=== PATIENT | male | born 1955 | race Two or more races ===

== ENCOUNTER 2019-01-04 13:24 | Inpatient (IN) | payer MEDICAID, OTHER ==
[~2019-01-04] VITALS: Ht 175.3 cm; Wt 68.1 kg
[~2019-01-04 13:24] MED LIST: SUCCINYLCHOLINE 20 MG/ML, 10ML ONE
[2019-01-04 14:33] LABS: MEAN CORPUSCULAR HGB CONC 32.6 g/dL (33.2-36.2); MEAN CORPUSCULAR VOLUME 88.9 fL (81-97); PLATELET COUNT 426 x10^3/uL (130-400); RED CELL DISTRIBUTION WIDTH 12.7 % (9.4-14.8)
--- NOTE | 2019-01-04 14:41 | NUR ---
PT TO ROOM FROM LOBBY VIA W/C
[2019-01-04 14:45] LABS: ALBUMIN 2.4 g/dL (3.4-5.0); ANION GAP 20 mmol/L (5-15); CALCIUM 9.7 mg/dL (8.5-10.1); CHLORIDE 91 mmol/L (98-107); CREATININE 1.17 mg/dL (0.7-1.3)
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
[2019-01-04] MEDS ORDERED: INSULIN (14:53)
[2019-01-04] MEDS ORDERED: ANTIBIOTIC (14:53)
[2019-01-04] MEDS ORDERED: LISI-167 PO (15:02)
[2019-01-04] MEDS ORDERED: METF500T17 PO (15:02)
[2019-01-04] MEDS ORDERED: TRAM50TA2 PO (15:02)
[2019-01-04] MEDS ORDERED: CEPH-368 PO (15:02)
[2019-01-04 15:06] LABS: <RBC MORPHOLOGY> NORMAL; BASOPHILS # (AUTO) 0.02 x10^3/uL (0-0.1); BASOPHILS % (AUTO) 0 % (0-1); EOSINOPHILS % (AUTO) 0 % (1-7); LYMPHOCYTES # (AUTO) 0.81 x10^3/uL (1-3.4); LYMPHOCYTES % (AUTO) 4 % (22-44); MD MORPH REVIEW ONLY; MONOCYTES # (AUTO) 0.63 x10^3/uL (0.2-0.8); MONOCYTES % (AUTO) 3 % (2-9); NEUTROPHILS # (AUTO) 18.47 x10^3/uL (1.8-6.8); NEUTROPHILS % (AUTO) 93 % (42-75)
[2019-01-04 15:07] LABS: <PLATELET ESTIMATE> INCREASED; LARGE PLATELETS 1+; PMNS WITH VACUOLES 1+; TOXIC GRAN 1+
[2019-01-04] MEDS ORDERED: PIPERACILLIN/TAZO/PMX 3.375GM 50 ML ONE (15:24)
[2019-01-04] MEDS ORDERED: PIPERACILLIN/TAZO/PMX 3.375GM 50 ML IVPB ONE (15:30)
[2019-01-04] MEDS ORDERED: VANCOMYCIN 1,300 MG in SODIUM CHLORIDE 0.9% 250 ML IV ONE (15:30)
[2019-01-04] MEDS ORDERED: VANCOMYCIN PER PHARMACY MC ONE (15:30)
[2019-01-04] MEDS ORDERED: SODIUM CHLORIDE 0.9% 1,000ML IVBOLUS ONE (15:30)
[2019-01-04] MEDS ORDERED: INSULIN REGULAR 100 UNITS/ML, 3ML VIAL SQ-INSULIN ONE (15:30)
[2019-01-04 15:35] LABS: PH, VENOUS 7.361 pH (7.320-7.420)
[2019-01-04] MEDS ORDERED: INSULIN SINGLE DOSE, ER SQ-INSULIN ONE ×2 (15:46→23:22)
--- NOTE | 2019-01-04 15:51 | NUR ---
Pt reclined in bed talking with family, who is at the bedside. Zosyn abx infusing at this time, which will be followed by another abx. Respirations even and unlabored at this time, saturating well on RA. Side rails up, call light in reach.
[2019-01-04 15:57] LABS: ACETONE, SERUM Large (80mg/dL) mg/dL (Negative)
--- NOTE | 2019-01-04 16:43 | NUR ---
VANCOMYCIN INFUSION STARTED, INFUSING AT 166.7ML/HR VIA PUMP PER PHARMACY LABEL. IV SITE PATENT. U/S STILL AT BS.
--- NOTE | 2019-01-04 17:15 | NUR ---
PT REPORT TO WALLY JAMES RN. CARE TRANSFERRRED.
--- NOTE | 2019-01-04 18:01 | NUR ---
U/S BS. FAMILY IN ROOM.
--- NOTE | 2019-01-04 19:06 | NUR ---
PT REPORT TO ADRIA WOOD FOR ROOM 464. PER NINA, ROOM ISN'T CLEAN, YET.
[2019-01-04 20:05] VITALS: BP 117/56
[2019-01-04] MEDS ORDERED: ONDANSETRON 2MG/ML, 2ML IVPush PRN (21:00)
[2019-01-04] MEDS ORDERED: SODIUM CHLORIDE 0.9% 1,000 ML IV SCH (21:00)
[2019-01-04] MEDS ORDERED: LIDODERM 5% PATCH TD PRN (21:00)
[2019-01-04] MEDS ORDERED: VANCOMYCIN PER PHARMACY MC PRN (21:00)
[2019-01-04] MEDS ORDERED: ACETAMINOPHEN 325 MG TABLET PO PRN ×2 (21:00→23:00)
[2019-01-04] MEDS ORDERED: FENTANYL PF 250 MCG/5ML ONE (21:26)
[2019-01-04] MEDS ORDERED: MIDAZOLAM 1 MG/ML, 2ML ONE (21:26)
[2019-01-04] MEDS ORDERED: PROPOFOL 10 MG/ML, 20ML ONE (21:28)
[2019-01-04] MEDS ORDERED: ROCURONIUM 10MG/ML,5ML ONE (21:29)
[2019-01-04] MEDS: INSULIN LISPRO 100 UNITS/ML, PEN SQ-INSULIN SCH (21:30)
[2019-01-04] MEDS ORDERED: DEXAMETHASONE 4 MG/ML, 1ML ONE (21:30)
[2019-01-04] MEDS ORDERED: ONDANSETRON 2MG/ML, 2ML ONE (21:30)
[2019-01-04] MEDS ORDERED: PHARMACOKINETIC MONITORING MC PRN ×2 (21:30)
[2019-01-04] MEDS ORDERED: LABETALOL 5MG/ML, 20ML IV PRN (23:00)
[2019-01-04] MEDS ORDERED: HALOPERIDOL 5 MG/ML IV PRN (23:00)
[2019-01-04] MEDS ORDERED: MIDAZOLAM 1 MG/ML, 2ML IV PRN (23:00)
[2019-01-04] MEDS ORDERED: MEPERIDINE/PF 25MG/0.5ML IVPush PRN (23:00)
[2019-01-04] MEDS ORDERED: EPHEDRINE 50 MG/ML, 1ML IVPush PRN (23:00)
[2019-01-04] MEDS ORDERED: hydrALAzine 20 MG/ML, 1ML IV PRN (23:00)
[2019-01-04] MEDS ORDERED: ONDANSETRON ODT 8 MG PO PRN (23:00)
[2019-01-04] MEDS ORDERED: OXYcodone 5 MG/5 ML ORAL.SOL UDC PO PRN (23:00)
[2019-01-04] MEDS ORDERED: ALBUTEROL SULFATE 2.5 MG/3 ML NPPB PRN (23:00)
[2019-01-04] MEDS ORDERED: MORPHINE SULFATE 4 MG/ML, 1ML IVPush PRN (23:00)
[2019-01-04] MEDS ORDERED: DIAZEPAM 5 MG/ML, 2ML IVPush PRN (23:00)
[2019-01-04] MEDS ORDERED: PROMETHAZINE 12.5 MG SUPP PR PRN (23:00)
[2019-01-04] MEDS ORDERED: ONDANSETRON 2MG/ML, 2ML IV PRN (23:00)
[2019-01-04] MEDS ORDERED: HYDROmorphone 2 MG/ML, 1ML IVPush PRN (23:00)
[2019-01-04] MEDS ORDERED: PROMETHAZINE 25 MG/ML, 1ML IV PRN (23:00)
[2019-01-04] MEDS ORDERED: FENTANYL PF 100 MCG/2ML ONE (23:22)
[2019-01-04] MEDS: FENTANYL PF 100 MCG/2ML IV PRN ×2 (23:26→23:32)
[2019-01-04] MEDS ORDERED: INSULIN REGULAR 100 UNITS/ML, 3ML VIAL IVPush ONE (23:30)
[2019-01-04] MEDS ORDERED: OXYcodone 5 MG/5 ML ORAL.SOL UDC ONE (23:42)
[2019-01-04 23:53] VITALS: BP 140/82
[2019-01-05 00:23] VITALS: BP 131/61
[2019-01-05] MEDS: PIPERACILLIN/TAZO/PMX 3.375GM 50 ML IV SCH ×4 (01:56→20:20)
[2019-01-05] MEDS: HYDROcodone/APAP 5/325 TABLET PO PRN ×4 (02:10→20:41)
[2019-01-05 04:08] VITALS: BP 143/68
[2019-01-05 05:15] LABS: CHLORIDE 98 mmol/L (98-107)
[2019-01-05 05:21] LABS: ANION GAP 12 mmol/L (5-15); CALCIUM 8.4 mg/dL (8.5-10.1); CREATININE 1.31 mg/dL (0.7-1.3)
[2019-01-05 05:37] LABS: MEAN CORPUSCULAR HEMOGLOBIN 28.7 pg (27.5-34.5); MEAN CORPUSCULAR HGB CONC 32.2 g/dL (33.2-36.2); MEAN CORPUSCULAR VOLUME 89.1 fL (81-97); MEAN PLATELET VOLUME 8.2 fL (7.4-10.4); PLATELET COUNT 327 x10^3/uL (130-400); RED BLOOD COUNT 3.28 x10^6/uL (4.38-5.82); RED CELL DISTRIBUTION WIDTH 12.5 % (9.4-14.8)
[2019-01-05 06:15] LABS: MD YES
[2019-01-05 06:17] LABS: BAND#(MANUAL) 1.33 x10^3/uL; BANDS%(MANUAL) 7 % (0-7); LYMPH#(MANUAL) 0.57 x10^3/uL (1-3.4); LYMPHS% (MANUAL) 3 % (22-44)
[2019-01-05 06:18] LABS: MONOS#(MANUAL) 0.38 x10^3/uL (0.3-2.7); MONOS% (MANUAL) 2 % (2-9); SEGS% (MANUAL) 88 % (42-75)
[2019-01-05 06:19] LABS: <PLATELET ESTIMATE> ADEQUATE; <PLT MORPHOLOGY> NORMAL PLT MORPH; <RBC MORPHOLOGY> NORMAL
[2019-01-05 06:20] VITALS: BP 125/62
[2019-01-05] MEDS: INSULIN LISPRO 100 UNITS/ML, PEN SQ-INSULIN SCH ×4 (07:00→23:00)
[2019-01-05] MEDS ORDERED: INSULIN LISPRO 100 UNITS/ML, PEN SQ-INSULIN ONE ×3 (07:30→23:00)
[2019-01-05] MEDS: LISINOPRIL 10 MG TABLET PO SCH (08:37)
[2019-01-05 08:52] LABS: HEMOGLOBIN A1C 12.3 % (4.2-6.3)
[2019-01-05 08:54] LABS: ACETONE, SERUM Large (80mg/dL) mg/dL (Negative)
[2019-01-05] MEDS ORDERED: OMNIPAQUE 350 MG/ML, 150 ML BOTTLE ONE (09:54)
[2019-01-05] MEDS ORDERED: INSULIN GLARGINE 100 UNITS/ML, PEN SQ-INSULIN ONE (12:00)
[2019-01-05 12:03] LABS: ANION GAP 12 mmol/L (5-15); CALCIUM 8.6 mg/dL (8.5-10.1); CHLORIDE 99 mmol/L (98-107); CREATININE 1.37 mg/dL (0.7-1.3)
[2019-01-05] MEDS: SODIUM CHLORIDE 0.9% 1,000 ML IV SCH ×2 (13:02→22:49)
[2019-01-05 13:14] VITALS: BP 121/66
[2019-01-05 16:37] LABS: ANION GAP 11 mmol/L (5-15); CALCIUM 8.5 mg/dL (8.5-10.1); CHLORIDE 98 mmol/L (98-107); CREATININE 1.39 mg/dL (0.7-1.3)
[2019-01-05] MEDS: VANCOMYCIN 1,300 MG in SODIUM CHLORIDE 0.9% 250 ML IV SCH (16:53)
[2019-01-05 19:38] VITALS: BP 114/64
[2019-01-06] MEDS: PIPERACILLIN/TAZO/PMX 3.375GM 50 ML IV SCH ×4 (01:11→20:08)
[2019-01-06 01:40] VITALS: BP 137/76
[2019-01-06 05:55] LABS: MEAN CORPUSCULAR HEMOGLOBIN 29.3 pg (27.5-34.5); MEAN CORPUSCULAR HGB CONC 32.8 g/dL (33.2-36.2); MEAN CORPUSCULAR VOLUME 89.4 fL (81-97); MEAN PLATELET VOLUME 8.4 fL (7.4-10.4); PLATELET COUNT 371 x10^3/uL (130-400); RED BLOOD COUNT 3.49 x10^6/uL (4.38-5.82); RED CELL DISTRIBUTION WIDTH 12.9 % (9.4-14.8)
[2019-01-06 06:05] LABS: CHLORIDE 102 mmol/L (98-107)
[2019-01-06 06:15] LABS: ANION GAP 10 mmol/L (5-15); CALCIUM 8.1 mg/dL (8.5-10.1); CREATININE 1.17 mg/dL (0.7-1.3)
[2019-01-06 06:35] LABS: MD YES
[2019-01-06 06:37] LABS: BANDS%(MANUAL) 1 % (0-7); LYMPH#(MANUAL) 1.37 x10^3/uL (1-3.4); LYMPHS% (MANUAL) 7 % (22-44); METAMYELOCYTES% (MANUAL) 1 % (0-1); MONOS#(MANUAL) 0.98 x10^3/uL (0.3-2.7); MONOS% (MANUAL) 5 % (2-9); SEG#(MANUAL) 16.77 x10^3/uL (1.8-6.8); SEGS% (MANUAL) 86 % (42-75)
[2019-01-06 06:38] LABS: <PLATELET ESTIMATE> ADEQUATE; <PLT MORPHOLOGY> NORMAL PLT MORPH; <RBC MORPHOLOGY> NORMAL
[2019-01-06 06:39] LABS: TOXIC GRAN 1+
[2019-01-06 06:42] VITALS: BP 168/96
[2019-01-06] MEDS: INSULIN LISPRO 100 UNITS/ML, PEN SQ-INSULIN SCH ×4 (08:07→21:28)
[2019-01-06] MEDS: LISINOPRIL 10 MG TABLET PO SCH (08:08)
[2019-01-06] MEDS: SODIUM CHLORIDE 0.9% 1,000 ML IV SCH ×2 (08:08→15:54)
[2019-01-06] MEDS ORDERED: INSULIN GLARGINE 100 UNITS/ML, PEN SQ-INSULIN SCH ×2 (09:00)
[2019-01-06 12:35] VITALS: BP 158/71
[2019-01-06] MEDS: HYDROcodone/APAP 5/325 TABLET PO PRN (13:39)
[2019-01-06] MEDS ORDERED: CALCIUM CARBONATE 500 MG TAB.CHEW PO PRN (17:30)
[2019-01-06] MEDS: VANCOMYCIN 1,300 MG in SODIUM CHLORIDE 0.9% 250 ML IV SCH (18:11)
[2019-01-06] MEDS ORDERED: ENOXAPARIN 40 MG/0.4 ML SQ SCH (18:30)
[2019-01-06 19:08] VITALS: BP 153/82
[2019-01-07] MEDS: PIPERACILLIN/TAZO/PMX 3.375GM 50 ML IV SCH ×4 (01:50→20:26)
[2019-01-07 02:56] VITALS: BP 142/82
[2019-01-07 05:11] LABS: BASOPHILS # (AUTO) 0.03 x10^3/uL (0-0.1); BASOPHILS % (AUTO) 0 % (0-1); EOSINOPHILS # (AUTO) 0.06 x10^3/uL (0-0.4); EOSINOPHILS % (AUTO) 1 % (1-7); LYMPHOCYTES % (AUTO) 16 % (22-44); MD NO; MEAN CORPUSCULAR HEMOGLOBIN 28.6 pg (27.5-34.5); MEAN CORPUSCULAR HGB CONC 32.6 g/dL (33.2-36.2); MEAN CORPUSCULAR VOLUME 87.7 fL (81-97); MEAN PLATELET VOLUME 7.8 fL (7.4-10.4); MONOCYTES # (AUTO) 0.89 x10^3/uL (0.2-0.8); MONOCYTES % (AUTO) 8 % (2-9); NEUTROPHILS # (AUTO) 8.28 x10^3/uL (1.8-6.8); NEUTROPHILS % (AUTO) 76 % (42-75); PLATELET COUNT 319 x10^3/uL (130-400); RED BLOOD COUNT 3.28 x10^6/uL (4.38-5.82); RED CELL DISTRIBUTION WIDTH 12.3 % (9.4-14.8)
[2019-01-07 05:16] LABS: ANION GAP 10 mmol/L (5-15); CALCIUM 7.8 mg/dL (8.5-10.1); CHLORIDE 106 mmol/L (98-107)
[2019-01-07 05:18] LABS: CREATININE 1.07 mg/dL (0.7-1.3)
[2019-01-07] MEDS: HYDROcodone/APAP 5/325 TABLET PO PRN ×2 (05:22→14:31)
[2019-01-07] MEDS: PANTOPROZOLE 40MG TABLET PO SCH (05:22)
[2019-01-07 07:24] VITALS: BP 175/80
[2019-01-07] MEDS: LISINOPRIL 10 MG TABLET PO SCH (07:56)
[2019-01-07] MEDS: INSULIN LISPRO 100 UNITS/ML, PEN SQ-INSULIN SCH ×4 (08:52→20:27)
[2019-01-07] MEDS: INSULIN GLARGINE 100 UNITS/ML, PEN SQ-INSULIN SCH ×2 (08:53→20:27)
[2019-01-07] MEDS ORDERED: INSULIN GLARGINE 100 UNITS/ML, PEN SQ-INSULIN SCH (09:00)
[2019-01-07] MEDS ORDERED: LISINOPRIL 10 MG TABLET PO ONE (09:00)
[2019-01-07 11:21] VITALS: BP 158/89
[2019-01-07 13:34] VITALS: BP 193/85
[2019-01-07] MEDS: hydrALAzine 20 MG/ML, 1ML IVPush PRN (13:41)
[2019-01-07] MEDS: ENOXAPARIN 40 MG/0.4 ML SQ SCH (14:31)
[2019-01-07 14:32] VITALS: BP 155/74
[2019-01-07] MEDS: VANCOMYCIN 1,300 MG in SODIUM CHLORIDE 0.9% 250 ML IV SCH (17:26)
[2019-01-07 19:34] VITALS: BP 151/68
[2019-01-07] MEDS: LISINOPRIL 20 MG TABLET PO SCH (20:27)
[2019-01-08] VITALS (7 sets, daily range): BP systolic 127–188; BP diastolic 67–84
[2019-01-08] MEDS: PIPERACILLIN/TAZO/PMX 3.375GM 50 ML IV SCH ×4 (02:15→21:17)
[2019-01-08] MEDS: HYDROcodone/APAP 5/325 TABLET PO PRN (02:16)
[2019-01-08 05:42] LABS: BASOPHILS # (AUTO) 0.01 x10^3/uL (0-0.1); BASOPHILS % (AUTO) 0 % (0-1); EOSINOPHILS # (AUTO) 0.07 x10^3/uL (0-0.4); EOSINOPHILS % (AUTO) 1 % (1-7); LYMPHOCYTES # (AUTO) 1.45 x10^3/uL (1-3.4); LYMPHOCYTES % (AUTO) 15 % (22-44); MD NO; MEAN CORPUSCULAR HEMOGLOBIN 28.5 pg (27.5-34.5); MEAN CORPUSCULAR HGB CONC 32.3 g/dL (33.2-36.2); MEAN CORPUSCULAR VOLUME 88.2 fL (81-97); MEAN PLATELET VOLUME 7.7 fL (7.4-10.4); MONOCYTES # (AUTO) 0.76 x10^3/uL (0.2-0.8); MONOCYTES % (AUTO) 8 % (2-9); NEUTROPHILS # (AUTO) 7.75 x10^3/uL (1.8-6.8); NEUTROPHILS % (AUTO) 77 % (42-75); PLATELET COUNT 321 x10^3/uL (130-400); RED BLOOD COUNT 3.19 x10^6/uL (4.38-5.82); RED CELL DISTRIBUTION WIDTH 12.6 % (9.4-14.8)
[2019-01-08 05:52] LABS: ANION GAP 6 mmol/L (5-15); CALCIUM 8.1 mg/dL (8.5-10.1); CHLORIDE 110 mmol/L (98-107); CREATININE 0.97 mg/dL (0.7-1.3)
[2019-01-08] MEDS: PANTOPROZOLE 40MG TABLET PO SCH (06:11)
[2019-01-08] MEDS: INSULIN LISPRO 100 UNITS/ML, PEN SQ-INSULIN SCH ×4 (07:41→21:18)
[2019-01-08] MEDS: INSULIN GLARGINE 100 UNITS/ML, PEN SQ-INSULIN SCH ×2 (07:42→21:18)
[2019-01-08] MEDS: hydrALAzine 20 MG/ML, 1ML IVPush PRN ×2 (07:55→21:16)
[2019-01-08] MEDS: LISINOPRIL 20 MG TABLET PO SCH ×2 (07:55→19:34)
[2019-01-08] MEDS ORDERED: LISINOPRIL 20 MG TABLET PO SCH (09:00)
[2019-01-08] MEDS: LACTATED RINGERS 1,000 ML IV SCH (11:16)
[2019-01-08] MEDS: ENOXAPARIN 40 MG/0.4 ML SQ SCH (14:28)
[2019-01-08] MEDS ORDERED: FENTANYL PF 250 MCG/5ML ONE (15:46)
[2019-01-08] MEDS ORDERED: LIDOCAINE 2%, 6 ML JEL.PF.APP MM ONE (15:47)
[2019-01-08] MEDS ORDERED: ONDANSETRON 2MG/ML, 2ML ONE (15:48)
[2019-01-08] MEDS ORDERED: SUCCINYLCHOLINE 20 MG/ML, 10ML ONE (15:48)
[2019-01-08] MEDS ORDERED: ROCURONIUM 10MG/ML,5ML ONE (15:48)
[2019-01-08] MEDS ORDERED: DEXAMETHASONE 4 MG/ML, 1ML ONE (15:48)
[2019-01-08] MEDS ORDERED: MIDAZOLAM 1 MG/ML, 2ML ONE (15:48)
[2019-01-08] MEDS ORDERED: PROPOFOL 10 MG/ML, 20ML ONE (15:48)
[2019-01-08] MEDS ORDERED: EPHEDRINE 50 MG/ML, 1ML ONE (17:37)
[2019-01-08] MEDS ORDERED: FENTANYL PF 100 MCG/2ML ONE ×2 (18:14→21:10)
[2019-01-08] MEDS ORDERED: OXYcodone 5 MG/5 ML ORAL.SOL UDC ONE (18:14)
[2019-01-08] MEDS: FENTANYL PF 100 MCG/2ML IV PRN ×2 (18:21→18:29)
[2019-01-08] MEDS ORDERED: hydrALAzine 20 MG/ML, 1ML IV PRN (18:30)
[2019-01-08] MEDS ORDERED: OXYcodone 5 MG/5 ML ORAL.SOL UDC PO PRN (18:30)
[2019-01-08] MEDS ORDERED: OXYcodone/APAP 5/325MG TABLET PO PRN ×2 (18:30→21:30)
[2019-01-08] MEDS ORDERED: PROMETHAZINE 25 MG SUPP PR PRN (18:30)
[2019-01-08] MEDS ORDERED: MEPERIDINE/PF 25MG/0.5ML IVPush PRN (18:30)
[2019-01-08] MEDS ORDERED: LABETALOL 5MG/ML, 20ML IV PRN (18:30)
[2019-01-08] MEDS ORDERED: HYDROmorphone 2 MG/ML, 1ML ONE (18:46)
[2019-01-08] MEDS: HYDROmorphone 2 MG/ML, 1ML IVPush PRN ×2 (18:54→19:03)
[2019-01-08] MEDS: VANCOMYCIN 1,300 MG in SODIUM CHLORIDE 0.9% 250 ML IV SCH (19:32)
[2019-01-08] MEDS ORDERED: FENTANYL PF 100 MCG/2ML IV ONE (21:30)
[2019-01-08] MEDS ORDERED: OXYcodone IR 5MG TABLET ONE (23:53)
[2019-01-09] MEDS ORDERED: OXYcodone IR 5MG TABLET PO ONE
[2019-01-09] MEDS: PIPERACILLIN/TAZO/PMX 3.375GM 50 ML IV SCH ×4 (02:07→22:44)
[2019-01-09] MEDS: OXYcodone/APAP 10/325MG TABLET PO PRN ×5 (02:07→18:41)
[2019-01-09 02:39] VITALS: BP 128/72
[2019-01-09 05:43] LABS: MEAN CORPUSCULAR HEMOGLOBIN 29.7 pg (27.5-34.5); MEAN CORPUSCULAR HGB CONC 33.2 g/dL (33.2-36.2); MEAN CORPUSCULAR VOLUME 89.5 fL (81-97); MEAN PLATELET VOLUME 8.2 fL (7.4-10.4); PLATELET COUNT 305 x10^3/uL (130-400); RED BLOOD COUNT 3.04 x10^6/uL (4.38-5.82); RED CELL DISTRIBUTION WIDTH 12.6 % (9.4-14.8)
[2019-01-09] MEDS: PANTOPROZOLE 40MG TABLET PO SCH (05:45)
[2019-01-09] MEDS: LACTATED RINGERS 1,000 ML IV SCH ×2 (05:46→20:53)
[2019-01-09 06:39] LABS: BASOPHILS # (AUTO) 0.03 x10^3/uL (0-0.1); BASOPHILS % (AUTO) 0 % (0-1); EOSINOPHILS # (AUTO) 0.01 x10^3/uL (0-0.4); EOSINOPHILS % (AUTO) 0 % (1-7); LYMPHOCYTES # (AUTO) 1.14 x10^3/uL (1-3.4); LYMPHOCYTES % (AUTO) 8 % (22-44); MD NO; MONOCYTES # (AUTO) 0.86 x10^3/uL (0.2-0.8); MONOCYTES % (AUTO) 6 % (2-9); NEUTROPHILS # (AUTO) 12.36 x10^3/uL (1.8-6.8); NEUTROPHILS % (AUTO) 86 % (42-75)
[2019-01-09] MEDS: INSULIN GLARGINE 100 UNITS/ML, PEN SQ-INSULIN SCH ×2 (09:05→21:22)
[2019-01-09] MEDS: INSULIN LISPRO 100 UNITS/ML, PEN SQ-INSULIN SCH ×4 (09:05→21:00)
[2019-01-09] MEDS: GABAPENTIN 100 MG CAPSULE PO SCH ×3 (09:06→20:54)
[2019-01-09] MEDS: DOCUSATE 100 MG CAPSULE PO PRN (09:06)
[2019-01-09] MEDS: LISINOPRIL 20 MG TABLET PO SCH ×2 (09:15→21:22)
[2019-01-09 09:18] VITALS: BP 153/79
[2019-01-09] MEDS ORDERED: MAGNESIUM CITRATE 300ML ORAL SOL PO ONE (09:30)
[2019-01-09 14:22] VITALS: BP 100/57
[2019-01-09] MEDS: ENOXAPARIN 40 MG/0.4 ML SQ SCH (14:38)
[2019-01-09] MEDS ORDERED: HYDROcodone/APAP 5/325 TABLET PO PRN (20:00)
[2019-01-09 20:16] VITALS: BP 115/65
[2019-01-09] MEDS: VANCOMYCIN 1,300 MG in SODIUM CHLORIDE 0.9% 250 ML IV SCH (20:53)
[2019-01-09] MEDS: OXYcodone/APAP 5/325MG TABLET PO PRN (22:43)
[2019-01-10 02:29] VITALS: BP 111/55
[2019-01-10] MEDS: OXYcodone/APAP 5/325MG TABLET PO PRN ×4 (02:37→19:41)
[2019-01-10] MEDS: PIPERACILLIN/TAZO/PMX 3.375GM 50 ML IV SCH ×3 (04:51→16:51)
[2019-01-10 04:59] LABS: MEAN CORPUSCULAR HEMOGLOBIN 29.4 pg (27.5-34.5); MEAN CORPUSCULAR HGB CONC 32.3 g/dL (33.2-36.2); MEAN CORPUSCULAR VOLUME 90.9 fL (81-97); MEAN PLATELET VOLUME 7.7 fL (7.4-10.4); PLATELET COUNT 310 x10^3/uL (130-400); RED BLOOD COUNT 2.81 x10^6/uL (4.38-5.82)
[2019-01-10 05:10] LABS: CALCIUM 8.1 mg/dL (8.5-10.1); CHLORIDE 111 mmol/L (98-107)
[2019-01-10 05:15] LABS: ALANINE AMINOTRANSFERASE 23 U/L (12-78); ALBUMIN 1.8 g/dL (3.4-5.0); ALKALINE PHOSPHATASE 94 U/L (45-117); ANION GAP 5 mmol/L (5-15); BILIRUBIN,TOTAL 0.3 mg/dL (0.2-1.0); CREATININE 1.84 mg/dL (0.7-1.3)
[2019-01-10 05:33] LABS: BASOPHILS # (AUTO) 0.05 x10^3/uL (0-0.1); BASOPHILS % (AUTO) 0 % (0-1); EOSINOPHILS # (AUTO) 0.27 x10^3/uL (0-0.4); EOSINOPHILS % (AUTO) 2 % (1-7); LYMPHOCYTES # (AUTO) 1.85 x10^3/uL (1-3.4); LYMPHOCYTES % (AUTO) 15 % (22-44); MD SCAN; MONOCYTES # (AUTO) 1.33 x10^3/uL (0.2-0.8); MONOCYTES % (AUTO) 11 % (2-9); NEUTROPHILS # (AUTO) 9.17 x10^3/uL (1.8-6.8); NEUTROPHILS % (AUTO) 72 % (42-75)
[2019-01-10] MEDS: PANTOPROZOLE 40MG TABLET PO SCH (06:28)
[2019-01-10 06:30] VITALS: BP 120/59
[2019-01-10] MEDS: INSULIN LISPRO 100 UNITS/ML, PEN SQ-INSULIN SCH ×4 (06:33→22:01)
[2019-01-10] MEDS: GABAPENTIN 100 MG CAPSULE PO SCH ×3 (07:53→21:57)
[2019-01-10] MEDS: INSULIN GLARGINE 100 UNITS/ML, PEN SQ-INSULIN SCH ×2 (07:55→22:02)
[2019-01-10] MEDS: LISINOPRIL 20 MG TABLET PO SCH ×2 (07:59→21:57)
[2019-01-10] MEDS ORDERED: ZOSYN PER PHARMACY MC PRN (08:00)
[2019-01-10] MEDS ORDERED: DEXTROSE 50%, 50ML SYRINGE IVPush PRN (08:00)
[2019-01-10] MEDS ORDERED: GLUCAGON 1 MG IM PRN (08:00)
[2019-01-10] MEDS ORDERED: DEXTROSE 4 GM TAB.CHEW PO PRN (08:00)
[2019-01-10] MEDS ORDERED: INSULIN GLARGINE 100 UNITS/ML, PEN SQ-INSULIN SCH (09:00)
[2019-01-10] MEDS: LINEZOLID PMX 600MG/300ML 300 ML IV SCH ×2 (09:13→21:58)
[2019-01-10] MEDS: TAMSULOSIN 0.4 MG CAP.ER.24H PO SCH (09:13)
[2019-01-10] MEDS: HEPARIN 5,000 UNITS/ML, 1ML SQ SCH ×2 (09:14→16:30)
[2019-01-10] MEDS: SODIUM CHLORIDE FLUSH 10ML SYR IVF SCH (09:15)
[2019-01-10] MEDS: DOCUSATE 100 MG CAPSULE PO PRN (09:21)
[2019-01-10] MEDS ORDERED: MAGNESIUM CITRATE 300ML ORAL SOL ONE (09:23)
[2019-01-10] MEDS ORDERED: MAGNESIUM CITRATE 300ML ORAL SOL PO ONE ×2 (09:30→15:00)
[2019-01-10] MEDS: LACTATED RINGERS 1,000 ML IV SCH ×2 (11:21→16:30)
[2019-01-10 14:31] VITALS: BP 118/69
[2019-01-10] MEDS ORDERED: BISACODYL 10 MG SUPP PR PRN (16:00)
[2019-01-10 20:31] VITALS: BP 137/66
[2019-01-11] MEDS: OXYcodone/APAP 5/325MG TABLET PO PRN ×3 (00:05→20:46)
[2019-01-11] MEDS: SODIUM CHLORIDE FLUSH 10ML SYR IVF SCH ×3 (00:05→21:44)
[2019-01-11] MEDS: PIPERACILLIN/TAZO/PMX 3.375GM 50 ML IV SCH ×4 (01:18→20:46)
[2019-01-11] MEDS: HEPARIN 5,000 UNITS/ML, 1ML SQ SCH ×3 (01:23→16:29)
[2019-01-11 02:35] VITALS: BP 143/77
[2019-01-11] MEDS: LACTATED RINGERS 1,000 ML IV SCH ×3 (03:00→19:00)
[2019-01-11 05:30] LABS: BASOPHILS # (AUTO) 0.03 x10^3/uL (0-0.1); BASOPHILS % (AUTO) 0 % (0-1); EOSINOPHILS # (AUTO) 0.19 x10^3/uL (0-0.4); EOSINOPHILS % (AUTO) 2 % (1-7); LYMPHOCYTES # (AUTO) 1.63 x10^3/uL (1-3.4); LYMPHOCYTES % (AUTO) 21 % (22-44); MD NO; MEAN CORPUSCULAR HEMOGLOBIN 28.6 pg (27.5-34.5); MEAN CORPUSCULAR HGB CONC 32.3 g/dL (33.2-36.2); MEAN CORPUSCULAR VOLUME 88.7 fL (81-97); MEAN PLATELET VOLUME 8.1 fL (7.4-10.4); MONOCYTES # (AUTO) 1.01 x10^3/uL (0.2-0.8); MONOCYTES % (AUTO) 13 % (2-9); NEUTROPHILS # (AUTO) 4.86 x10^3/uL (1.8-6.8); NEUTROPHILS % (AUTO) 63 % (42-75); PLATELET COUNT 306 x10^3/uL (130-400); RED BLOOD COUNT 2.65 x10^6/uL (4.38-5.82); RED CELL DISTRIBUTION WIDTH 12.9 % (9.4-14.8)
[2019-01-11 05:40] LABS: CHLORIDE 109 mmol/L (98-107)
[2019-01-11 05:45] LABS: ALANINE AMINOTRANSFERASE 23 U/L (12-78); ALBUMIN 1.7 g/dL (3.4-5.0); ALKALINE PHOSPHATASE 107 U/L (45-117); ANION GAP 6 mmol/L (5-15); BILIRUBIN,TOTAL 0.3 mg/dL (0.2-1.0); CREATININE 1.53 mg/dL (0.7-1.3); TOTAL PROTEIN 5.9 g/dL (6.4-8.2)
[2019-01-11 06:50] VITALS: BP 148/67
[2019-01-11] MEDS: INSULIN LISPRO 100 UNITS/ML, PEN SQ-INSULIN SCH ×4 (07:00→20:53)
[2019-01-11] MEDS: PANTOPROZOLE 40MG TABLET PO SCH (07:07)
[2019-01-11] MEDS: LISINOPRIL 20 MG TABLET PO SCH (08:28)
[2019-01-11] MEDS: GABAPENTIN 100 MG CAPSULE PO SCH ×3 (08:28→20:46)
[2019-01-11] MEDS: TAMSULOSIN 0.4 MG CAP.ER.24H PO SCH (08:29)
[2019-01-11] MEDS: INSULIN GLARGINE 100 UNITS/ML, PEN SQ-INSULIN SCH ×3 (08:29→20:54)
[2019-01-11] MEDS: LINEZOLID PMX 600MG/300ML 300 ML IV SCH ×2 (08:36→21:44)
[2019-01-11] MEDS: AMLODIPINE 5 MG TABLET PO SCH (09:28)
[2019-01-11 16:05] VITALS: BP 183/81
[2019-01-11] MEDS: hydrALAzine 20 MG/ML, 1ML IVPush PRN (16:28)
[2019-01-11 17:00] VITALS: BP 130/81
[2019-01-11] MEDS ORDERED: AMLODIPINE 5 MG TABLET PO ONE (17:30)
[2019-01-11 19:48] VITALS: BP 151/77
[2019-01-12] MEDS: PIPERACILLIN/TAZO/PMX 3.375GM 50 ML IV SCH ×4 (01:47→20:04)
[2019-01-12] MEDS: HEPARIN 5,000 UNITS/ML, 1ML SQ SCH ×3 (01:48→18:23)
[2019-01-12 02:21] VITALS: BP 145/73
[2019-01-12] MEDS: LACTATED RINGERS 1,000 ML IV SCH (03:00)
[2019-01-12] MEDS: OXYcodone/APAP 5/325MG TABLET PO PRN ×3 (03:58→15:52)
[2019-01-12 05:26] LABS: HCT (SEDRATE) 23.2 % (39.2-51.8)
[2019-01-12 05:29] LABS: ALBUMIN 1.7 g/dL (3.4-5.0); ANION GAP 5 mmol/L (5-15); CALCIUM 8.2 mg/dL (8.5-10.1); CHLORIDE 109 mmol/L (98-107)
[2019-01-12 05:31] LABS: BASOPHILS # (AUTO) 0.04 x10^3/uL (0-0.1); BASOPHILS % (AUTO) 1 % (0-1); EOSINOPHILS # (AUTO) 0.19 x10^3/uL (0-0.4); EOSINOPHILS % (AUTO) 3 % (1-7); LYMPHOCYTES # (AUTO) 1.72 x10^3/uL (1-3.4); LYMPHOCYTES % (AUTO) 27 % (22-44); MD NO; MEAN CORPUSCULAR HEMOGLOBIN 28.5 pg (27.5-34.5); MEAN CORPUSCULAR HGB CONC 32.3 g/dL (33.2-36.2); MEAN CORPUSCULAR VOLUME 88.2 fL (81-97); MEAN PLATELET VOLUME 7.8 fL (7.4-10.4); MONOCYTES # (AUTO) 0.75 x10^3/uL (0.2-0.8); MONOCYTES % (AUTO) 12 % (2-9); NEUTROPHILS # (AUTO) 3.81 x10^3/uL (1.8-6.8); NEUTROPHILS % (AUTO) 59 % (42-75); PLATELET COUNT 305 x10^3/uL (130-400); RED BLOOD COUNT 2.57 x10^6/uL (4.38-5.82)
[2019-01-12 05:39] LABS: ALANINE AMINOTRANSFERASE 22 U/L (12-78); ALKALINE PHOSPHATASE 102 U/L (45-117); BILIRUBIN,TOTAL 0.3 mg/dL (0.2-1.0); CREATININE 1.41 mg/dL (0.7-1.3); TOTAL PROTEIN 5.9 g/dL (6.4-8.2)
[2019-01-12 06:19] LABS: SEDIMENTATION RATE > 120 mm/hr (0-10)
[2019-01-12] MEDS: PANTOPROZOLE 40MG TABLET PO SCH (06:19)
[2019-01-12 06:47] VITALS: BP 177/86
[2019-01-12] MEDS: INSULIN LISPRO 100 UNITS/ML, PEN SQ-INSULIN SCH ×4 (07:00→21:00)
[2019-01-12] MEDS: AMLODIPINE 5 MG TABLET PO SCH (08:49)
[2019-01-12] MEDS: DOCUSATE 100 MG CAPSULE PO PRN (08:49)
[2019-01-12] MEDS: TAMSULOSIN 0.4 MG CAP.ER.24H PO SCH (08:49)
[2019-01-12] MEDS: GABAPENTIN 100 MG CAPSULE PO SCH ×3 (08:50→21:20)
[2019-01-12] MEDS: LINEZOLID PMX 600MG/300ML 300 ML IV SCH ×2 (09:40→21:20)
[2019-01-12] MEDS: INSULIN GLARGINE 100 UNITS/ML, PEN SQ-INSULIN SCH ×2 (10:06→21:23)
[2019-01-12] MEDS: SODIUM CHLORIDE FLUSH 10ML SYR IVF SCH ×2 (10:07→21:20)
[2019-01-12 14:07] VITALS: BP 173/77
[2019-01-12 19:47] VITALS: BP 110/60
[2019-01-13 01:53] VITALS: BP 126/61
[2019-01-13] MEDS: PIPERACILLIN/TAZO/PMX 3.375GM 50 ML IV SCH ×2 (02:07→08:55)
[2019-01-13] MEDS: HEPARIN 5,000 UNITS/ML, 1ML SQ SCH ×3 (02:07→18:12)
[2019-01-13] MEDS: OXYcodone/APAP 5/325MG TABLET PO PRN ×4 (02:12→22:27)
[2019-01-13 06:11] LABS: BASOPHILS # (AUTO) 0.04 x10^3/uL (0-0.1); BASOPHILS % (AUTO) 1 % (0-1); EOSINOPHILS # (AUTO) 0.16 x10^3/uL (0-0.4); EOSINOPHILS % (AUTO) 3 % (1-7); LYMPHOCYTES # (AUTO) 1.55 x10^3/uL (1-3.4); LYMPHOCYTES % (AUTO) 25 % (22-44); MD NO; MEAN CORPUSCULAR HEMOGLOBIN 28.4 pg (27.5-34.5); MEAN CORPUSCULAR HGB CONC 31.8 g/dL (33.2-36.2); MEAN CORPUSCULAR VOLUME 89.3 fL (81-97); MEAN PLATELET VOLUME 8.1 fL (7.4-10.4); MONOCYTES # (AUTO) 0.63 x10^3/uL (0.2-0.8); MONOCYTES % (AUTO) 10 % (2-9); NEUTROPHILS # (AUTO) 3.74 x10^3/uL (1.8-6.8); NEUTROPHILS % (AUTO) 61 % (42-75); PLATELET COUNT 355 x10^3/uL (130-400); RED CELL DISTRIBUTION WIDTH 13.3 % (9.4-14.8)
[2019-01-13 06:18] LABS: CHLORIDE 109 mmol/L (98-107)
[2019-01-13 06:25] LABS: ALANINE AMINOTRANSFERASE 32 U/L (12-78); ALBUMIN 1.8 g/dL (3.4-5.0); ALKALINE PHOSPHATASE 124 U/L (45-117); ANION GAP 6 mmol/L (5-15); BILIRUBIN,TOTAL 0.3 mg/dL (0.2-1.0); CALCIUM 8.5 mg/dL (8.5-10.1); CREATININE 1.44 mg/dL (0.7-1.3); TOTAL PROTEIN 6.1 g/dL (6.4-8.2)
[2019-01-13] MEDS: PANTOPROZOLE 40MG TABLET PO SCH (06:28)
[2019-01-13 06:42] VITALS: BP 151/68
[2019-01-13] MEDS: INSULIN LISPRO 100 UNITS/ML, PEN SQ-INSULIN SCH ×4 (07:00→21:11)
[2019-01-13] MEDS: DOCUSATE 100 MG CAPSULE PO PRN (08:04)
[2019-01-13] MEDS: GABAPENTIN 100 MG CAPSULE PO SCH ×3 (08:04→21:03)
[2019-01-13] MEDS: AMLODIPINE 5 MG TABLET PO SCH (08:04)
[2019-01-13] MEDS: LINEZOLID PMX 600MG/300ML 300 ML IV SCH (09:43)
[2019-01-13] MEDS: TAMSULOSIN 0.4 MG CAP.ER.24H PO SCH (09:49)
[2019-01-13] MEDS: INSULIN GLARGINE 100 UNITS/ML, PEN SQ-INSULIN SCH ×2 (09:49→21:10)
[2019-01-13] MEDS: SODIUM CHLORIDE FLUSH 10ML SYR IVF SCH ×2 (09:50→21:00)
[2019-01-13] MEDS: AMOXICILLIN/CLAV 875-125MG TABLET PO SCH ×2 (11:56→21:03)
[2019-01-13 16:28] VITALS: BP 146/67
[2019-01-13 19:40] VITALS: BP 130/63
[2019-01-14 02:05] VITALS: BP 132/66
[2019-01-14] MEDS: HEPARIN 5,000 UNITS/ML, 1ML SQ SCH (02:54)
[2019-01-14 05:06] LABS: MEAN CORPUSCULAR HEMOGLOBIN 29.7 pg (27.5-34.5); MEAN CORPUSCULAR HGB CONC 32.9 g/dL (33.2-36.2); MEAN CORPUSCULAR VOLUME 90.2 fL (81-97); MEAN PLATELET VOLUME 7.6 fL (7.4-10.4); PLATELET COUNT 360 x10^3/uL (130-400); RED BLOOD COUNT 2.52 x10^6/uL (4.38-5.82); RED CELL DISTRIBUTION WIDTH 13.1 % (9.4-14.8)
[2019-01-14 05:07] LABS: ALBUMIN 1.8 g/dL (3.4-5.0); ANION GAP 5 mmol/L (5-15); CALCIUM 8.5 mg/dL (8.5-10.1); CHLORIDE 111 mmol/L (98-107)
[2019-01-14 05:11] LABS: ALANINE AMINOTRANSFERASE 33 U/L (12-78); ALKALINE PHOSPHATASE 120 U/L (45-117); BILIRUBIN,TOTAL 0.2 mg/dL (0.2-1.0); CREATININE 1.29 mg/dL (0.7-1.3); TOTAL PROTEIN 6.1 g/dL (6.4-8.2)
[2019-01-14 06:03] LABS: BASOPHILS # (AUTO) 0.03 x10^3/uL (0-0.1); BASOPHILS % (AUTO) 1 % (0-1); EOSINOPHILS # (AUTO) 0.18 x10^3/uL (0-0.4); EOSINOPHILS % (AUTO) 3 % (1-7); LYMPHOCYTES # (AUTO) 1.65 x10^3/uL (1-3.4); LYMPHOCYTES % (AUTO) 28 % (22-44); MD SCAN; MONOCYTES # (AUTO) 0.66 x10^3/uL (0.2-0.8); MONOCYTES % (AUTO) 11 % (2-9); NEUTROPHILS # (AUTO) 3.37 x10^3/uL (1.8-6.8); NEUTROPHILS % (AUTO) 57 % (42-75)
[2019-01-14] MEDS: PANTOPROZOLE 40MG TABLET PO SCH (06:21)
[2019-01-14] MEDS: INSULIN LISPRO 100 UNITS/ML, PEN SQ-INSULIN SCH ×4 (06:22→23:07)
[2019-01-14] MEDS: OXYcodone/APAP 5/325MG TABLET PO PRN ×2 (06:26→21:36)
[2019-01-14 08:48] VITALS: BP 149/68
[2019-01-14] MEDS: SODIUM CHLORIDE FLUSH 10ML SYR IVF SCH ×2 (09:00→21:37)
[2019-01-14] MEDS: GABAPENTIN 100 MG CAPSULE PO SCH ×3 (09:51→23:05)
[2019-01-14] MEDS: TAMSULOSIN 0.4 MG CAP.ER.24H PO SCH (09:51)
[2019-01-14] MEDS: LISINOPRIL 10 MG TABLET PO SCH ×2 (09:51→21:36)
[2019-01-14] MEDS: AMOXICILLIN/CLAV 875-125MG TABLET PO SCH ×2 (09:51→21:36)
[2019-01-14] MEDS: INSULIN GLARGINE 100 UNITS/ML, PEN SQ-INSULIN SCH ×2 (09:51→23:06)
[2019-01-14] MEDS: AMLODIPINE 5 MG TABLET PO SCH (09:52)
[2019-01-14] MEDS: ENOXAPARIN 40 MG/0.4 ML SQ SCH (09:52)
--- NOTE | 2019-01-14 13:00 | NUR ---
NURSING ACTIVITY SHEET 1. UP IN CHAIR FOR MEALS 2. EXERCISES PER EXERCISE SHEET IN BED AND IN CHAIR 3-5X'S A DAY TOLERATED 3. AMBULATE TO THE RESTROOM USING FWW WITH NURSING STAFF. Addendum: 01/14/19 at 1423 by GUIDO CHAVEZ PTA Amended: Links added.
[2019-01-14 13:35] VITALS: BP 182/73
[2019-01-14 20:21] VITALS: BP 150/68
[2019-01-14] MEDS: ATORVASTATIN 40 MG TABLET PO SCH (21:35)
[2019-01-15 02:10] VITALS: BP 121/63
[2019-01-15] MEDS: PANTOPROZOLE 40MG TABLET PO SCH (06:18)
[2019-01-15] MEDS: INSULIN LISPRO 100 UNITS/ML, PEN SQ-INSULIN SCH ×4 (06:18→23:13)
[2019-01-15] MEDS: OXYcodone/APAP 5/325MG TABLET PO PRN (06:29)
[2019-01-15 08:03] VITALS: BP 147/63
[2019-01-15 08:33] LABS: BASOPHILS # (AUTO) 0.04 x10^3/uL (0-0.1); BASOPHILS % (AUTO) 1 % (0-1); EOSINOPHILS # (AUTO) 0.13 x10^3/uL (0-0.4); EOSINOPHILS % (AUTO) 2 % (1-7); LYMPHOCYTES # (AUTO) 1.29 x10^3/uL (1-3.4); LYMPHOCYTES % (AUTO) 19 % (22-44); MD NO; MEAN CORPUSCULAR HEMOGLOBIN 28.7 pg (27.5-34.5); MEAN CORPUSCULAR HGB CONC 32.2 g/dL (33.2-36.2); MEAN CORPUSCULAR VOLUME 89.2 fL (81-97); MEAN PLATELET VOLUME 6.8 fL (7.4-10.4); MONOCYTES # (AUTO) 0.55 x10^3/uL (0.2-0.8); MONOCYTES % (AUTO) 8 % (2-9); NEUTROPHILS # (AUTO) 4.85 x10^3/uL (1.8-6.8); NEUTROPHILS % (AUTO) 71 % (42-75); PLATELET COUNT 412 x10^3/uL (130-400); RED BLOOD COUNT 2.78 x10^6/uL (4.38-5.82); RED CELL DISTRIBUTION WIDTH 13.4 % (9.4-14.8)
[2019-01-15] MEDS: AMOXICILLIN/CLAV 875-125MG TABLET PO SCH ×2 (09:06→21:41)
[2019-01-15] MEDS: AMLODIPINE 5 MG TABLET PO SCH (09:07)
[2019-01-15] MEDS: LISINOPRIL 10 MG TABLET PO SCH ×2 (09:07→21:41)
[2019-01-15] MEDS: GABAPENTIN 100 MG CAPSULE PO SCH ×3 (09:07→21:41)
[2019-01-15] MEDS: SODIUM CHLORIDE FLUSH 10ML SYR IVF SCH ×2 (09:07→21:42)
[2019-01-15] MEDS: ASPIRIN 81 MG TABLET CHEW PO SCH (09:07)
[2019-01-15] MEDS: TAMSULOSIN 0.4 MG CAP.ER.24H PO SCH (09:07)
[2019-01-15] MEDS: INSULIN GLARGINE 100 UNITS/ML, PEN SQ-INSULIN SCH ×2 (09:08→23:13)
[2019-01-15] MEDS: ENOXAPARIN 40 MG/0.4 ML SQ SCH (09:08)
[2019-01-15 15:33] VITALS: BP 145/75
[2019-01-15 19:56] VITALS: BP 148/66
[2019-01-15] MEDS: ATORVASTATIN 40 MG TABLET PO SCH (21:41)
[2019-01-16 00:43] VITALS: BP 145/59
[2019-01-16] MEDS: PANTOPROZOLE 40MG TABLET PO SCH (06:35)
[2019-01-16] MEDS: INSULIN LISPRO 100 UNITS/ML, PEN SQ-INSULIN SCH ×4 (06:38→23:31)
[2019-01-16] MEDS: GABAPENTIN 100 MG CAPSULE PO SCH ×3 (08:57→23:28)
[2019-01-16] MEDS: TAMSULOSIN 0.4 MG CAP.ER.24H PO SCH (08:59)
[2019-01-16] MEDS: AMOXICILLIN/CLAV 875-125MG TABLET PO SCH ×2 (09:00→23:28)
[2019-01-16] MEDS: AMLODIPINE 5 MG TABLET PO SCH (09:00)
[2019-01-16] MEDS: ASPIRIN 81 MG TABLET CHEW PO SCH (09:01)
[2019-01-16] MEDS: ENOXAPARIN 40 MG/0.4 ML SQ SCH (09:02)
[2019-01-16] MEDS: LISINOPRIL 20 MG TABLET PO SCH ×2 (09:02→23:29)
[2019-01-16] MEDS: INSULIN GLARGINE 100 UNITS/ML, PEN SQ-INSULIN SCH ×2 (09:06→23:30)
[2019-01-16] MEDS: OXYcodone/APAP 5/325MG TABLET PO PRN ×2 (09:08→16:48)
[2019-01-16] MEDS: SODIUM CHLORIDE FLUSH 10ML SYR IVF SCH ×2 (09:15→23:29)
[2019-01-16 09:53] VITALS: BP 164/79
[2019-01-16 15:30] VITALS: BP 152/75
[2019-01-16 20:10] VITALS: BP 148/68
[2019-01-16] MEDS: ATORVASTATIN 40 MG TABLET PO SCH (23:28)
[2019-01-17 01:10] VITALS: BP 117/55
[2019-01-17] MEDS: PANTOPROZOLE 40MG TABLET PO SCH (06:07)
[2019-01-17] MEDS: INSULIN LISPRO 100 UNITS/ML, PEN SQ-INSULIN SCH ×4 (07:21→21:31)
[2019-01-17 07:25] VITALS: BP 149/68
[2019-01-17] MEDS: AMOXICILLIN/CLAV 875-125MG TABLET PO SCH ×2 (08:19→21:14)
[2019-01-17] MEDS: TAMSULOSIN 0.4 MG CAP.ER.24H PO SCH (08:20)
[2019-01-17] MEDS: ASPIRIN 81 MG TABLET CHEW PO SCH (08:20)
[2019-01-17] MEDS: SODIUM CHLORIDE FLUSH 10ML SYR IVF SCH ×2 (08:20→21:14)
[2019-01-17] MEDS: AMLODIPINE 5 MG TABLET PO SCH (08:20)
[2019-01-17] MEDS: LISINOPRIL 20 MG TABLET PO SCH ×2 (08:20→21:14)
[2019-01-17] MEDS: INSULIN GLARGINE 100 UNITS/ML, PEN SQ-INSULIN SCH ×2 (08:20→21:31)
[2019-01-17] MEDS: ENOXAPARIN 40 MG/0.4 ML SQ SCH (08:20)
[2019-01-17] MEDS: GABAPENTIN 100 MG CAPSULE PO SCH ×3 (08:20→21:14)
[2019-01-17 08:22] VITALS: BP 156/67
[2019-01-17 12:47] VITALS: BP 161/78
[2019-01-17] MEDS: OXYcodone/APAP 5/325MG TABLET PO PRN ×2 (16:26→21:15)
[2019-01-17 19:38] VITALS: BP 125/62
[2019-01-17] MEDS: ATORVASTATIN 40 MG TABLET PO SCH (21:14)
[2019-01-18 01:06] VITALS: BP 124/54
[2019-01-18] MEDS: PANTOPROZOLE 40MG TABLET PO SCH (06:25)
[2019-01-18] MEDS: INSULIN LISPRO 100 UNITS/ML, PEN SQ-INSULIN SCH ×4 (07:07→21:27)
[2019-01-18 07:13] VITALS: BP 136/67
[2019-01-18] MEDS: GABAPENTIN 100 MG CAPSULE PO SCH ×3 (08:46→21:26)
[2019-01-18] MEDS: ENOXAPARIN 40 MG/0.4 ML SQ SCH (08:46)
[2019-01-18] MEDS: TAMSULOSIN 0.4 MG CAP.ER.24H PO SCH (08:46)
[2019-01-18] MEDS: AMLODIPINE 5 MG TABLET PO SCH (08:46)
[2019-01-18] MEDS: LISINOPRIL 20 MG TABLET PO SCH ×2 (08:46→21:26)
[2019-01-18] MEDS: ASPIRIN 81 MG TABLET CHEW PO SCH (08:47)
[2019-01-18] MEDS: INSULIN GLARGINE 100 UNITS/ML, PEN SQ-INSULIN SCH ×2 (08:47→21:27)
[2019-01-18] MEDS: AMOXICILLIN/CLAV 875-125MG TABLET PO SCH ×2 (08:47→21:26)
[2019-01-18] MEDS: SODIUM CHLORIDE FLUSH 10ML SYR IVF SCH ×2 (08:47→21:25)
[2019-01-18 11:47] LABS: MICROSCOPIC AUTO
[2019-01-18 11:48] LABS: CULTURE INDICATED? YES
[2019-01-18 14:05] VITALS: BP 128/61
[2019-01-18 20:21] VITALS: BP 152/67
[2019-01-18] MEDS: OXYcodone/APAP 5/325MG TABLET PO PRN (21:26)
[2019-01-18] MEDS: ATORVASTATIN 40 MG TABLET PO SCH (21:26)
[2019-01-19 01:31] VITALS: BP 132/64
[2019-01-19] MEDS: PANTOPROZOLE 40MG TABLET PO SCH (06:24)
[2019-01-19] MEDS: INSULIN LISPRO 100 UNITS/ML, PEN SQ-INSULIN SCH ×4 (07:04→21:05)
[2019-01-19 07:43] VITALS: BP 127/66
[2019-01-19] MEDS: SODIUM CHLORIDE FLUSH 10ML SYR IVF SCH ×2 (09:00→20:00)
[2019-01-19] MEDS: AMOXICILLIN/CLAV 875-125MG TABLET PO SCH ×2 (09:09→20:00)
[2019-01-19] MEDS: TAMSULOSIN 0.4 MG CAP.ER.24H PO SCH (09:09)
[2019-01-19] MEDS: ENOXAPARIN 40 MG/0.4 ML SQ SCH (09:09)
[2019-01-19] MEDS: LISINOPRIL 20 MG TABLET PO SCH ×2 (09:10→20:01)
[2019-01-19] MEDS: AMLODIPINE 5 MG TABLET PO SCH (09:10)
[2019-01-19] MEDS: GABAPENTIN 100 MG CAPSULE PO SCH ×3 (09:10→20:00)
[2019-01-19] MEDS: INSULIN GLARGINE 100 UNITS/ML, PEN SQ-INSULIN SCH ×2 (09:10→21:04)
[2019-01-19] MEDS: ASPIRIN 81 MG TABLET CHEW PO SCH (09:10)
[2019-01-19 13:25] VITALS: BP 128/60
[2019-01-19 19:33] VITALS: BP 152/69
[2019-01-19] MEDS: ATORVASTATIN 40 MG TABLET PO SCH (20:01)
[2019-01-20 02:04] VITALS: BP 130/66
[2019-01-20] MEDS: PANTOPROZOLE 40MG TABLET PO SCH (06:41)
[2019-01-20 07:12] VITALS: BP 131/65
[2019-01-20] MEDS: INSULIN LISPRO 100 UNITS/ML, PEN SQ-INSULIN SCH ×2 (07:17→11:32)
[2019-01-20] MEDS: GABAPENTIN 100 MG CAPSULE PO SCH (09:35)
[2019-01-20] MEDS: AMLODIPINE 5 MG TABLET PO SCH (09:35)
[2019-01-20] MEDS: ENOXAPARIN 40 MG/0.4 ML SQ SCH (09:35)
[2019-01-20] MEDS: AMOXICILLIN/CLAV 875-125MG TABLET PO SCH (09:35)
[2019-01-20] MEDS: ASPIRIN 81 MG TABLET CHEW PO SCH (09:35)
[2019-01-20] MEDS: SODIUM CHLORIDE FLUSH 10ML SYR IVF SCH (09:35)
[2019-01-20] MEDS: LISINOPRIL 20 MG TABLET PO SCH (09:35)
[2019-01-20] MEDS: TAMSULOSIN 0.4 MG CAP.ER.24H PO SCH (09:35)
[2019-01-20] MEDS ORDERED: AMOX1TAB12 PO (10:47)
[2019-01-20] MEDS ORDERED: ASPI-515 PO (10:47)
[2019-01-20] MEDS ORDERED: INSU100I11 SQ-INSULIN (10:47)
[2019-01-20] MEDS ORDERED: GABA-826 PO (10:47)
[2019-01-20] MEDS ORDERED: Tamsulosin PO (10:47)
[2019-01-20] MEDS ORDERED: LISI-170 PO (10:47)
[2019-01-20] MEDS ORDERED: INSU100I13 SQ-INSULIN (10:47)
[2019-01-20] MEDS ORDERED: ATOR40TA78 PO (10:47)
[2019-01-20] MEDS ORDERED: AMLO-150 PO (10:47)
[2019-01-20 12:29] VITALS: BP 134/57
[2019-01-20] MEDS ORDERED: INSULIN GLARGINE 100 UNITS/ML, PEN SQ-INSULIN SCH (21:00)
== END 2019-01-20 16:40 | disposition home or self-care (01) | DRG 853 ==
LOC: ED 18:34 → 4NOR 18:45 → DCLOUNGE 01-20 16:08
PROVIDERS: ADMIT Family Medicine; ATTEND Family Medicine
PROC: 0Y6N0Z0 Detachment at Left Foot, Complete, Open Approach (ICD-10-PCS; 2019-01-04)
PROC: 0Y6J0Z1 Detachment at Left Lower Leg, High, Open Approach (ICD-10-PCS; principal; 2019-01-08 18:00)
DX: A41.9 Sepsis, unspecified organism (principal); A48.0 Gas gangrene; N17.0 Acute kidney failure with tubular necrosis; L03.116 Cellulitis of left lower limb; N39.0 Urinary tract infection, site not specified; E11.52 Type 2 diabetes mellitus with diabetic peripheral angiopathy with gangrene; E78.5 Hyperlipidemia, unspecified; E86.0 Dehydration; I10 Essential (primary) hypertension; I16.0 Hypertensive urgency; I70.202 Unspecified atherosclerosis of native arteries of extremities, left leg; K59.00 Constipation, unspecified; Z79.899 Other long term (current) drug therapy; Z83.3 Family history of diabetes mellitus; Z87.891 Personal history of nicotine dependence; E11.649 Type 2 diabetes mellitus with hypoglycemia without coma; E11.40 Type 2 diabetes mellitus with diabetic neuropathy, unspecified; T73.0XXA Starvation, initial encounter; X58.XXXA Exposure to other specified factors, initial encounter
CPT/HCPCS: 36415; 76770; 80048; 80053; 80202; 81001; 81003; 82010; 82040; 82607; 82728; 82803; 82947; 82962; 83036; 83540; 83550; 83605; 85025; 85651; 86140; 87040; 87070; 87077; 87086; 87106; 87186; 87205; 88307; 88311; 93005; 93922; 93925; 96365; 96372; 99291; C1729; G0378; J1100; J1170; J1644; J1650; J1815; J2020; J2250; J2405; J2543; J2704; J3010; J3370; Q9967; J0330; J0360; J7030; J7050; J7120

== ENCOUNTER 2019-10-26 10:49 | Inpatient (IN) | payer MEDICAID ==
[~2019-10-26] VITALS: Ht 172.7 cm; Wt 63.1 kg
[~2019-10-26 10:49] MED LIST changes: +AMLO-150 PO; +AMOX1TAB12 PO; +ANTIBIOTIC; +ASPI-515 PO; +ATOR40TA78 PO; +CEPH-368 PO; +GABA-826 PO; +INSU100I11 SQ-INSULIN; +INSU100I13 SQ-INSULIN; +INSULIN; +LISI-167 PO; +LISI-170 PO; +METF500T17 PO; -SUCCINYLCHOLINE 20 MG/ML, 10ML ONE; +TRAM50TA2 PO; +Tamsulosin PO
[2019-10-26] MEDS ORDERED: MORPHINE SULFATE 4 MG/ML, 1ML ONE (11:25)
[2019-10-26] MEDS ORDERED: ONDANSETRON 2MG/ML, 2ML ONE (11:25)
[2019-10-26] MEDS ORDERED: ONDANSETRON 2MG/ML, 2ML IVPush ONE (11:30)
[2019-10-26] MEDS ORDERED: MORPHINE SULFATE 4 MG/ML, 1ML IV PRN (11:30)
[2019-10-26 12:25] LABS: BASOPHILS # (AUTO) 0.03 x10^3/uL (0-0.1); BASOPHILS % (AUTO) 0 % (0-1); EOSINOPHILS # (AUTO) 0.26 x10^3/uL (0-0.4); EOSINOPHILS % (AUTO) 3 % (1-7); LYMPHOCYTES # (AUTO) 2.06 x10^3/uL (1-3.4); LYMPHOCYTES % (AUTO) 22 % (22-44); MD NO; MEAN CORPUSCULAR HEMOGLOBIN 28.4 pg (27.5-34.5); MEAN CORPUSCULAR HGB CONC 32.7 g/dL (33.2-36.2); MEAN PLATELET VOLUME 8.1 fL (7.4-10.4); MONOCYTES # (AUTO) 0.68 x10^3/uL (0.2-0.8); MONOCYTES % (AUTO) 7 % (2-9); NEUTROPHILS # (AUTO) 6.54 x10^3/uL (1.8-6.8); NEUTROPHILS % (AUTO) 68 % (42-75); PLATELET COUNT 287 x10^3/uL (130-400); RED BLOOD COUNT 3.54 x10^6/uL (4.38-5.82); RED CELL DISTRIBUTION WIDTH 12.9 % (9.4-14.8)
[2019-10-26 12:38] LABS: ALBUMIN 2.9 g/dL (3.4-5.0); ANION GAP 5 mmol/L (5-15); CALCIUM 8.6 mg/dL (8.5-10.1); CHLORIDE 110 mmol/L (98-107)
[2019-10-26 12:39] LABS: CREATININE 1.13 mg/dL (0.7-1.3)
--- NOTE | 2019-10-26 15:04 | NUR ---
TASK RN: WITH REASSESSMENT PATIENT DENIES COMPLAINTS, VSS ON GEOLOGICAL SPECIALIST UPDATED ON ESTIMATED POC (PROVIDER REVIEWING RECENTLY COMPLETED TEST RESULTS)
[2019-10-26] MEDS ORDERED: SODIUM CHLORIDE 0.9% 1,000 ML IV SCH (16:50)
[2019-10-26] MEDS ORDERED: SENNA/DOCUSATE TABLET PO PRN (17:00)
[2019-10-26] MEDS ORDERED: ONDANSETRON 2MG/ML, 2ML IVPush PRN (17:00)
[2019-10-26] MEDS ORDERED: VANCOMYCIN PER PHARMACY MC PRN (17:00)
[2019-10-26] MEDS ORDERED: ONDANSETRON ODT 4 MG PO PRN (17:00)
[2019-10-26] MEDS ORDERED: KETOROLAC 30 MG/1 ML IV PRN (17:00)
--- NOTE | 2019-10-26 17:22 | NUR ---
PT IS UNABLE TO TELL ME THE MEDICATIONS HE TAKES. MED REC UPDATED.
[2019-10-26] MEDS: ENOXAPARIN 40 MG/0.4 ML SQ SCH (19:26)
[2019-10-26] MEDS: CARVEDILOL 6.25 MG TABLET PO SCH (19:26)
[2019-10-26] MEDS ORDERED: PHARMACOKINETIC MONITORING MC PRN (19:30)
[2019-10-26] MEDS ORDERED: PHARMACOKINETIC CONSULTATION MC ONE (19:30)
[2019-10-26 19:33] VITALS: BP 185/90
[2019-10-26] MEDS: AMPICILLIN/SULBACTAM 3 GM in SODIUM CHLORIDE 0.9% 100 ML IV SCH (19:48)
[2019-10-26] MEDS ORDERED: VANCOMYCIN 1,600 MG in SODIUM CHLORIDE 0.9% 250 ML IV ONE (20:00)
[2019-10-26] MEDS: ATORVASTATIN 40 MG TABLET PO SCH (20:46)
[2019-10-26] MEDS: LISINOPRIL 20 MG TABLET PO SCH (20:46)
[2019-10-26] MEDS: GABAPENTIN 100 MG CAPSULE PO SCH (20:46)
[2019-10-26] MEDS: INSULIN LISPRO 100 UNITS/ML, PEN SQ-INSULIN SCH (20:50)
[2019-10-26] MEDS ORDERED: INSULIN GLARGINE 100 UNITS/ML, PEN SQ-INSULIN SCH (21:00)
[2019-10-26] MEDS ORDERED: metFORMIN 500 MG TABLET PO SCH (21:00)
[2019-10-27 00:07] VITALS: BP 113/62
[2019-10-27] MEDS: AMPICILLIN/SULBACTAM 3 GM in SODIUM CHLORIDE 0.9% 100 ML IV SCH ×2 (02:10→09:36)
[2019-10-27] MEDS: CARVEDILOL 6.25 MG TABLET PO SCH ×2 (05:36→17:31)
[2019-10-27 06:24] LABS: BASOPHILS # (AUTO) 0.04 x10^3/uL (0-0.1); BASOPHILS % (AUTO) 0 % (0-1); EOSINOPHILS # (AUTO) 0.31 x10^3/uL (0-0.4); EOSINOPHILS % (AUTO) 3 % (1-7); LYMPHOCYTES # (AUTO) 2.12 x10^3/uL (1-3.4); LYMPHOCYTES % (AUTO) 22 % (22-44); MD NO; MEAN CORPUSCULAR HEMOGLOBIN 28.3 pg (27.5-34.5); MEAN CORPUSCULAR HGB CONC 32.9 g/dL (33.2-36.2); MEAN PLATELET VOLUME 8.3 fL (7.4-10.4); MONOCYTES # (AUTO) 0.63 x10^3/uL (0.2-0.8); MONOCYTES % (AUTO) 7 % (2-9); NEUTROPHILS # (AUTO) 6.57 x10^3/uL (1.8-6.8); NEUTROPHILS % (AUTO) 68 % (42-75); PLATELET COUNT 313 x10^3/uL (130-400); RED BLOOD COUNT 3.52 x10^6/uL (4.38-5.82); RED CELL DISTRIBUTION WIDTH 12.9 % (9.4-14.8)
[2019-10-27 06:35] LABS: CALCIUM 8.8 mg/dL (8.5-10.1); CHLORIDE 113 mmol/L (98-107)
[2019-10-27 06:45] LABS: ANION GAP 4 mmol/L (5-15); CREATININE 0.94 mg/dL (0.7-1.3)
[2019-10-27] MEDS: INSULIN LISPRO 100 UNITS/ML, PEN SQ-INSULIN SCH ×4 (07:00→20:28)
[2019-10-27] MEDS: LISINOPRIL 20 MG TABLET PO SCH ×2 (08:38→20:25)
[2019-10-27] MEDS: TAMSULOSIN 0.4 MG CAP.ER.24H PO SCH (08:38)
[2019-10-27] MEDS: ASPIRIN 81 MG TABLET EC PO SCH (08:38)
[2019-10-27] MEDS: GABAPENTIN 100 MG CAPSULE PO SCH ×3 (08:38→20:25)
[2019-10-27 08:51] VITALS: BP 170/84
[2019-10-27] MEDS ORDERED: DEXTROSE 50%, 50ML SYRINGE IVPush PRN (13:00)
[2019-10-27] MEDS ORDERED: GLUCAGON 1 MG IM PRN (13:00)
[2019-10-27] MEDS ORDERED: DEXTROSE 4 GM TAB.CHEW PO PRN (13:00)
[2019-10-27] MEDS: PIPERACILLIN/TAZO/PMX 4.5GM 100 ML IV SCH ×2 (13:37→19:23)
[2019-10-27] MEDS: VANCOMYCIN 1,200 MG in SODIUM CHLORIDE 0.9% 250 ML IV SCH (14:27)
[2019-10-27 15:55] VITALS: BP 142/71
[2019-10-27] MEDS: ENOXAPARIN 40 MG/0.4 ML SQ SCH (17:32)
[2019-10-27 19:49] VITALS: BP 106/64
[2019-10-27] MEDS: ATORVASTATIN 40 MG TABLET PO SCH (20:25)
[2019-10-27] MEDS: SODIUM CHLORIDE FLUSH 10ML SYR IVF SCH (20:26)
[2019-10-27] MEDS ORDERED: INSULIN GLARGINE 100 UNITS/ML, PEN SQ-INSULIN SCH (21:00)
[2019-10-28] VITALS (7 sets, daily range): BP systolic 109–181; BP diastolic 63–81
[2019-10-28] MEDS: PIPERACILLIN/TAZO/PMX 4.5GM 100 ML IV SCH ×4 (01:19→19:26)
[2019-10-28 05:20] LABS: BASOPHILS # (AUTO) 0.04 x10^3/uL (0-0.1); BASOPHILS % (AUTO) 1 % (0-1); EOSINOPHILS % (AUTO) 4 % (1-7); LYMPHOCYTES # (AUTO) 2.28 x10^3/uL (1-3.4); LYMPHOCYTES % (AUTO) 29 % (22-44); MD NO; MEAN CORPUSCULAR HEMOGLOBIN 28.4 pg (27.5-34.5); MEAN CORPUSCULAR HGB CONC 33.2 g/dL (33.2-36.2); MEAN CORPUSCULAR VOLUME 85.4 fL (81-97); MONOCYTES % (AUTO) 8 % (2-9); NEUTROPHILS # (AUTO) 4.75 x10^3/uL (1.8-6.8); NEUTROPHILS % (AUTO) 60 % (42-75); PLATELET COUNT 269 x10^3/uL (130-400); RED BLOOD COUNT 3.28 x10^6/uL (4.38-5.82); RED CELL DISTRIBUTION WIDTH 12.9 % (9.4-14.8)
[2019-10-28 05:21] LABS: ALANINE AMINOTRANSFERASE 19 U/L (12-78); ALBUMIN 2.3 g/dL (3.4-5.0); ANION GAP 5 mmol/L (5-15); CALCIUM 8.5 mg/dL (8.5-10.1); CHLORIDE 114 mmol/L (98-107); CREATININE 1.06 mg/dL (0.7-1.3)
[2019-10-28 05:24] LABS: ALKALINE PHOSPHATASE 116 U/L (45-117); BILIRUBIN,TOTAL 0.4 mg/dL (0.2-1.0); TOTAL PROTEIN 6.3 g/dL (6.4-8.2)
[2019-10-28] MEDS: CARVEDILOL 6.25 MG TABLET PO SCH (05:40)
[2019-10-28] MEDS: INSULIN LISPRO 100 UNITS/ML, PEN SQ-INSULIN SCH ×4 (07:55→20:59)
[2019-10-28] MEDS: ASPIRIN 81 MG TABLET EC PO SCH (08:35)
[2019-10-28] MEDS: VANCOMYCIN 1,200 MG in SODIUM CHLORIDE 0.9% 250 ML IV SCH (08:35)
[2019-10-28] MEDS: TAMSULOSIN 0.4 MG CAP.ER.24H PO SCH (08:35)
[2019-10-28] MEDS: ACETAMINOPHEN 325 MG TABLET PO PRN (08:35)
[2019-10-28] MEDS: LISINOPRIL 20 MG TABLET PO SCH ×2 (08:35→21:00)
[2019-10-28] MEDS: GABAPENTIN 100 MG CAPSULE PO SCH ×3 (08:35→21:00)
[2019-10-28] MEDS: SODIUM CHLORIDE FLUSH 10ML SYR IVF SCH ×2 (08:36→21:00)
[2019-10-28] MEDS: hydrALAzine 20 MG/ML, 1ML IV PRN (12:05)
[2019-10-28] MEDS: CARVEDILOL 3.125 MG TABLET PO SCH (17:55)
[2019-10-28] MEDS: ENOXAPARIN 40 MG/0.4 ML SQ SCH (17:55)
[2019-10-28] MEDS: ATORVASTATIN 40 MG TABLET PO SCH (21:00)
[2019-10-29] MEDS: PIPERACILLIN/TAZO/PMX 4.5GM 100 ML IV SCH ×4 (00:49→22:14)
[2019-10-29 01:10] VITALS: BP 147/76
[2019-10-29] MEDS: VANCOMYCIN 1,200 MG in SODIUM CHLORIDE 0.9% 250 ML IV SCH ×2 (02:28→20:00)
[2019-10-29] MEDS: CARVEDILOL 3.125 MG TABLET PO SCH ×2 (06:20→17:22)
[2019-10-29] MEDS: INSULIN LISPRO 100 UNITS/ML, PEN SQ-INSULIN SCH ×4 (07:00→20:00)
[2019-10-29] MEDS ORDERED: MIDAZOLAM 1 MG/ML, 5ML ONE ×2 (07:52→07:53)
[2019-10-29] MEDS ORDERED: FENTANYL PF 100 MCG/2ML ONE (07:52)
[2019-10-29] MEDS ORDERED: HEPARIN 1,000 UNITS/ML, 10ML ONE (07:53)
[2019-10-29] MEDS ORDERED: FLUMAZENIL 0.1 MG/1 ML, 5ML ONE (07:53)
[2019-10-29] MEDS ORDERED: NALOXONE 1 MG/ML, 2ML ONE (07:53)
[2019-10-29] MEDS ORDERED: PROTAMINE SULFATE 10 MG/ML, 25ML ONE (07:53)
[2019-10-29] MEDS ORDERED: LIDOCAINE 1%, 10ML ONE (08:00)
[2019-10-29] MEDS ORDERED: hydrALAzine 20 MG/ML, 1ML ONE (08:09)
[2019-10-29] MEDS ORDERED: CLOPIDOGREL 75 MG TABLET ONE (09:54)
[2019-10-29 10:23] VITALS: BP 165/85
[2019-10-29] MEDS: TAMSULOSIN 0.4 MG CAP.ER.24H PO SCH (10:40)
[2019-10-29] MEDS: LISINOPRIL 20 MG TABLET PO SCH ×2 (10:40→19:59)
[2019-10-29] MEDS: GABAPENTIN 100 MG CAPSULE PO SCH ×3 (10:40→19:59)
[2019-10-29] MEDS: ASPIRIN 81 MG TABLET EC PO SCH (10:40)
[2019-10-29] MEDS: SODIUM CHLORIDE FLUSH 10ML SYR IVF SCH ×2 (10:40→19:59)
[2019-10-29 13:31] VITALS: BP 152/80
[2019-10-29] MEDS: ACETAMINOPHEN 325 MG TABLET PO PRN (13:49)
[2019-10-29] MEDS: ENOXAPARIN 40 MG/0.4 ML SQ SCH (17:22)
[2019-10-29 19:18] VITALS: BP 98/54
[2019-10-29] MEDS: SENNA/DOCUSATE TABLET PO SCH (19:59)
[2019-10-29] MEDS: ATORVASTATIN 40 MG TABLET PO SCH (19:59)
[2019-10-30 00:48] VITALS: BP 163/76
[2019-10-30] MEDS: PIPERACILLIN/TAZO/PMX 4.5GM 100 ML IV SCH ×4 (03:48→21:37)
[2019-10-30] MEDS: CARVEDILOL 3.125 MG TABLET PO SCH ×2 (05:54→16:31)
[2019-10-30 05:58] LABS: C-REACTIVE PROTEIN, QUANT 2.4 mg/dL (0.02-0.49)
[2019-10-30] MEDS: INSULIN LISPRO 100 UNITS/ML, PEN SQ-INSULIN SCH ×4 (07:00→21:38)
[2019-10-30 07:02] VITALS: BP 167/79
[2019-10-30] MEDS: SODIUM CHLORIDE FLUSH 10ML SYR IVF SCH ×2 (07:56→21:00)
[2019-10-30] MEDS: ASPIRIN 81 MG TABLET EC PO SCH (07:56)
[2019-10-30] MEDS: GABAPENTIN 100 MG CAPSULE PO SCH ×3 (07:57→21:37)
[2019-10-30] MEDS: CLOPIDOGREL 75 MG TABLET PO SCH (07:57)
[2019-10-30] MEDS: TAMSULOSIN 0.4 MG CAP.ER.24H PO SCH (07:57)
[2019-10-30] MEDS: LISINOPRIL 20 MG TABLET PO SCH ×2 (07:57→21:37)
[2019-10-30 13:14] VITALS: BP 118/61
[2019-10-30] MEDS: ENOXAPARIN 40 MG/0.4 ML SQ SCH (16:31)
[2019-10-30 19:06] VITALS: BP 184/80
[2019-10-30 19:54] VITALS: BP 200/91
[2019-10-30] MEDS: hydrALAzine 20 MG/ML, 1ML IV PRN (20:40)
[2019-10-30] MEDS: SENNA/DOCUSATE TABLET PO SCH (21:00)
[2019-10-30] MEDS: ATORVASTATIN 40 MG TABLET PO SCH (21:37)
[2019-10-30] MEDS: ACETAMINOPHEN 325 MG TABLET PO PRN (21:37)
[2019-10-30 21:39] VITALS: BP 135/72
[2019-10-31 01:42] VITALS: BP 116/66
[2019-10-31] MEDS: PIPERACILLIN/TAZO/PMX 4.5GM 100 ML IV SCH ×4 (03:53→22:41)
[2019-10-31 06:00] LABS: CREATININE 1.36 mg/dL (0.7-1.3)
[2019-10-31] MEDS: CARVEDILOL 3.125 MG TABLET PO SCH ×2 (06:25→16:44)
[2019-10-31] MEDS: INSULIN LISPRO 100 UNITS/ML, PEN SQ-INSULIN SCH ×4 (07:00→20:56)
[2019-10-31 07:23] VITALS: BP 176/78
[2019-10-31] MEDS: TAMSULOSIN 0.4 MG CAP.ER.24H PO SCH (09:22)
[2019-10-31] MEDS: CLOPIDOGREL 75 MG TABLET PO SCH (09:22)
[2019-10-31] MEDS: GABAPENTIN 100 MG CAPSULE PO SCH ×3 (09:22→20:42)
[2019-10-31] MEDS: LISINOPRIL 20 MG TABLET PO SCH ×2 (09:22→20:43)
[2019-10-31] MEDS: ASPIRIN 81 MG TABLET EC PO SCH (09:22)
[2019-10-31] MEDS: SODIUM CHLORIDE FLUSH 10ML SYR IVF SCH ×2 (09:23→21:00)
[2019-10-31 09:24] VITALS: BP 149/72
[2019-10-31] MEDS: VANCOMYCIN 1,200 MG in SODIUM CHLORIDE 0.9% 250 ML IV SCH (11:29)
[2019-10-31 12:51] VITALS: BP 164/73
[2019-10-31] MEDS: ENOXAPARIN 40 MG/0.4 ML SQ SCH (16:44)
[2019-10-31] MEDS: ACETAMINOPHEN 325 MG TABLET PO PRN (16:50)
[2019-10-31 19:27] VITALS: BP 145/73
[2019-10-31] MEDS: ATORVASTATIN 40 MG TABLET PO SCH (20:42)
[2019-10-31] MEDS: SENNA/DOCUSATE TABLET PO SCH (20:43)
[2019-10-31] MEDS: INSULIN GLARGINE 100 UNITS/ML, PEN SQ-INSULIN SCH (20:56)
[2019-11-01 02:00] VITALS: BP 117/66
[2019-11-01] MEDS: PIPERACILLIN/TAZO/PMX 4.5GM 100 ML IV SCH ×4 (04:30→22:06)
[2019-11-01 05:12] LABS: BASOPHILS # (AUTO) 0.04 x10^3/uL (0-0.1); BASOPHILS % (AUTO) 0 % (0-1); EOSINOPHILS # (AUTO) 0.37 x10^3/uL (0-0.4); EOSINOPHILS % (AUTO) 4 % (1-7); LYMPHOCYTES % (AUTO) 19 % (22-44); MD NO; MEAN CORPUSCULAR HEMOGLOBIN 28.4 pg (27.5-34.5); MEAN CORPUSCULAR HGB CONC 33.2 g/dL (33.2-36.2); MEAN CORPUSCULAR VOLUME 85.3 fL (81-97); MEAN PLATELET VOLUME 8.1 fL (7.4-10.4); MONOCYTES # (AUTO) 0.95 x10^3/uL (0.2-0.8); MONOCYTES % (AUTO) 10 % (2-9); NEUTROPHILS # (AUTO) 6.33 x10^3/uL (1.8-6.8); NEUTROPHILS % (AUTO) 67 % (42-75); PLATELET COUNT 233 x10^3/uL (130-400); RED BLOOD COUNT 3.01 x10^6/uL (4.38-5.82); RED CELL DISTRIBUTION WIDTH 13.4 % (9.4-14.8)
[2019-11-01 05:26] LABS: ALBUMIN 2.2 g/dL (3.4-5.0); CALCIUM 8.1 mg/dL (8.5-10.1); CHLORIDE 111 mmol/L (98-107)
[2019-11-01 05:33] LABS: ALANINE AMINOTRANSFERASE 23 U/L (12-78); ALKALINE PHOSPHATASE 94 U/L (45-117); ANION GAP 6 mmol/L (5-15); BILIRUBIN,TOTAL 0.3 mg/dL (0.2-1.0); CREATININE 1.39 mg/dL (0.7-1.3); TOTAL PROTEIN 6.2 g/dL (6.4-8.2)
[2019-11-01] MEDS: CARVEDILOL 3.125 MG TABLET PO SCH ×2 (06:04→17:09)
[2019-11-01] MEDS ORDERED: POTASSIUM CHLORIDE 20 MEQ TAB.ER.PRT PO ONE (07:00)
[2019-11-01] MEDS: INSULIN LISPRO 100 UNITS/ML, PEN SQ-INSULIN SCH ×4 (07:00→22:24)
[2019-11-01 07:21] VITALS: BP 176/78
[2019-11-01] MEDS: ASPIRIN 81 MG TABLET EC PO SCH (09:13)
[2019-11-01] MEDS: SODIUM CHLORIDE FLUSH 10ML SYR IVF SCH ×2 (09:13→21:00)
[2019-11-01] MEDS: CLOPIDOGREL 75 MG TABLET PO SCH (09:13)
[2019-11-01] MEDS: TAMSULOSIN 0.4 MG CAP.ER.24H PO SCH (09:13)
[2019-11-01] MEDS: GABAPENTIN 100 MG CAPSULE PO SCH ×3 (09:13→22:05)
[2019-11-01] MEDS: LISINOPRIL 20 MG TABLET PO SCH ×2 (09:15→22:06)
[2019-11-01 09:17] VITALS: BP 169/83
[2019-11-01] MEDS: VANCOMYCIN 1,200 MG in SODIUM CHLORIDE 0.9% 250 ML IV SCH (11:42)
[2019-11-01 13:45] VITALS: BP 163/68
[2019-11-01] MEDS: ENOXAPARIN 40 MG/0.4 ML SQ SCH (17:09)
[2019-11-01 19:19] VITALS: BP 175/76
[2019-11-01] MEDS: ATORVASTATIN 40 MG TABLET PO SCH (22:05)
[2019-11-01] MEDS: SENNA/DOCUSATE TABLET PO SCH (22:05)
[2019-11-01] MEDS: INSULIN GLARGINE 100 UNITS/ML, PEN SQ-INSULIN SCH (22:24)
[2019-11-02 01:41] VITALS: BP 169/78
[2019-11-02] MEDS: PIPERACILLIN/TAZO/PMX 4.5GM 100 ML IV SCH ×4 (03:47→22:34)
[2019-11-02 04:35] LABS: BASOPHILS # (AUTO) 0.03 x10^3/uL (0-0.1); BASOPHILS % (AUTO) 0 % (0-1); EOSINOPHILS # (AUTO) 0.39 x10^3/uL (0-0.4); EOSINOPHILS % (AUTO) 4 % (1-7); LYMPHOCYTES # (AUTO) 1.55 x10^3/uL (1-3.4); LYMPHOCYTES % (AUTO) 16 % (22-44); MD NO; MEAN CORPUSCULAR HEMOGLOBIN 28.3 pg (27.5-34.5); MEAN CORPUSCULAR HGB CONC 33.2 g/dL (33.2-36.2); MEAN CORPUSCULAR VOLUME 85.2 fL (81-97); MEAN PLATELET VOLUME 8.4 fL (7.4-10.4); MONOCYTES # (AUTO) 0.79 x10^3/uL (0.2-0.8); MONOCYTES % (AUTO) 8 % (2-9); NEUTROPHILS # (AUTO) 7.07 x10^3/uL (1.8-6.8); NEUTROPHILS % (AUTO) 72 % (42-75); PLATELET COUNT 239 x10^3/uL (130-400); RED BLOOD COUNT 2.89 x10^6/uL (4.38-5.82); RED CELL DISTRIBUTION WIDTH 13.2 % (9.4-14.8)
[2019-11-02 04:47] LABS: ALBUMIN 2.2 g/dL (3.4-5.0); ANION GAP 5 mmol/L (5-15); CALCIUM 8.4 mg/dL (8.5-10.1); CHLORIDE 113 mmol/L (98-107)
[2019-11-02 04:51] LABS: ALANINE AMINOTRANSFERASE 23 U/L (12-78); ALKALINE PHOSPHATASE 106 U/L (45-117); BILIRUBIN,TOTAL 0.3 mg/dL (0.2-1.0); CREATININE 1.26 mg/dL (0.7-1.3); TOTAL PROTEIN 6.3 g/dL (6.4-8.2)
[2019-11-02] MEDS: CARVEDILOL 3.125 MG TABLET PO SCH ×2 (05:19→17:03)
[2019-11-02] MEDS: INSULIN LISPRO 100 UNITS/ML, PEN SQ-INSULIN SCH ×4 (07:00→21:25)
[2019-11-02 07:42] VITALS: BP 161/71
[2019-11-02] MEDS: CLOPIDOGREL 75 MG TABLET PO SCH (08:39)
[2019-11-02] MEDS: LISINOPRIL 20 MG TABLET PO SCH ×2 (08:39→20:27)
[2019-11-02] MEDS: ASPIRIN 81 MG TABLET EC PO SCH (08:39)
[2019-11-02] MEDS: GABAPENTIN 100 MG CAPSULE PO SCH ×3 (08:41→21:24)
[2019-11-02] MEDS: SODIUM CHLORIDE FLUSH 10ML SYR IVF SCH ×2 (08:41→20:28)
[2019-11-02] MEDS: TAMSULOSIN 0.4 MG CAP.ER.24H PO SCH (08:41)
[2019-11-02] MEDS: VANCOMYCIN 1,200 MG in SODIUM CHLORIDE 0.9% 250 ML IV SCH (11:56)
[2019-11-02 12:43] VITALS: BP 196/86
[2019-11-02 12:55] VITALS: BP 196/96
[2019-11-02] MEDS: hydrALAzine 20 MG/ML, 1ML IV PRN (13:01)
[2019-11-02] MEDS: ACETAMINOPHEN 325 MG TABLET PO PRN ×2 (13:01→22:38)
[2019-11-02 13:30] VITALS: BP 145/73
[2019-11-02] MEDS: metFORMIN 500 MG TABLET PO SCH (16:27)
[2019-11-02] MEDS: ENOXAPARIN 40 MG/0.4 ML SQ SCH (16:27)
[2019-11-02 19:31] VITALS: BP 137/61
[2019-11-02] MEDS: ATORVASTATIN 40 MG TABLET PO SCH (20:28)
[2019-11-02] MEDS: SENNA/DOCUSATE TABLET PO SCH (20:28)
[2019-11-02] MEDS: DAPTOMYCIN IVPB SCH (21:24)
[2019-11-02] MEDS: INSULIN GLARGINE 100 UNITS/ML, PEN SQ-INSULIN SCH (21:24)
[2019-11-02] MEDS: SODIUM CHLORIDE 0.9% IVPB SCH (21:24)
[2019-11-03] VITALS (7 sets, daily range): BP systolic 119–192; BP diastolic 64–86
[2019-11-03] MEDS: PIPERACILLIN/TAZO/PMX 4.5GM 100 ML IV SCH ×4 (04:08→22:04)
[2019-11-03] MEDS: hydrALAzine 20 MG/ML, 1ML IV PRN (05:36)
[2019-11-03 05:40] LABS: BASOPHILS # (AUTO) 0.03 x10^3/uL (0-0.1); BASOPHILS % (AUTO) 0 % (0-1); EOSINOPHILS # (AUTO) 0.24 x10^3/uL (0-0.4); EOSINOPHILS % (AUTO) 3 % (1-7); LYMPHOCYTES # (AUTO) 1.19 x10^3/uL (1-3.4); LYMPHOCYTES % (AUTO) 13 % (22-44); MD NO; MEAN CORPUSCULAR HEMOGLOBIN 28.4 pg (27.5-34.5); MEAN CORPUSCULAR HGB CONC 33.3 g/dL (33.2-36.2); MEAN CORPUSCULAR VOLUME 85.4 fL (81-97); MEAN PLATELET VOLUME 8.8 fL (7.4-10.4); MONOCYTES # (AUTO) 0.57 x10^3/uL (0.2-0.8); MONOCYTES % (AUTO) 6 % (2-9); NEUTROPHILS # (AUTO) 7.39 x10^3/uL (1.8-6.8); NEUTROPHILS % (AUTO) 78 % (42-75); PLATELET COUNT 220 x10^3/uL (130-400); RED BLOOD COUNT 2.98 x10^6/uL (4.38-5.82); RED CELL DISTRIBUTION WIDTH 13.8 % (9.4-14.8)
[2019-11-03 05:50] LABS: ALANINE AMINOTRANSFERASE 23 U/L (12-78); ALBUMIN 2.1 g/dL (3.4-5.0); ANION GAP 7 mmol/L (5-15); CALCIUM 8.2 mg/dL (8.5-10.1); CHLORIDE 115 mmol/L (98-107); CREATININE 1.33 mg/dL (0.7-1.3)
[2019-11-03 05:52] LABS: ALKALINE PHOSPHATASE 117 U/L (45-117); BILIRUBIN,TOTAL 0.2 mg/dL (0.2-1.0); TOTAL PROTEIN 6.5 g/dL (6.4-8.2)
[2019-11-03] MEDS: CARVEDILOL 3.125 MG TABLET PO SCH ×2 (06:09→18:06)
[2019-11-03 06:34] LABS: HCT (SEDRATE) 25.5 % (39.2-51.8)
[2019-11-03] MEDS: INSULIN LISPRO 100 UNITS/ML, PEN SQ-INSULIN SCH ×4 (07:00→21:11)
[2019-11-03] MEDS: metFORMIN 500 MG TABLET PO SCH ×2 (08:36→16:29)
[2019-11-03] MEDS: CLOPIDOGREL 75 MG TABLET PO SCH (08:36)
[2019-11-03] MEDS: TAMSULOSIN 0.4 MG CAP.ER.24H PO SCH (08:36)
[2019-11-03] MEDS: ASPIRIN 81 MG TABLET EC PO SCH (08:36)
[2019-11-03] MEDS: GABAPENTIN 100 MG CAPSULE PO SCH ×3 (08:36→21:11)
[2019-11-03] MEDS: LISINOPRIL 20 MG TABLET PO SCH ×2 (08:36→20:08)
[2019-11-03] MEDS: SODIUM CHLORIDE FLUSH 10ML SYR IVF SCH ×2 (08:37→20:08)
[2019-11-03] MEDS: ENOXAPARIN 40 MG/0.4 ML SQ SCH (16:29)
[2019-11-03] MEDS: ACETAMINOPHEN 325 MG TABLET PO PRN (19:25)
[2019-11-03] MEDS: SENNA/DOCUSATE TABLET PO SCH (20:08)
[2019-11-03] MEDS: INSULIN GLARGINE 100 UNITS/ML, PEN SQ-INSULIN SCH (21:10)
[2019-11-03] MEDS: SODIUM CHLORIDE 0.9% IVPB SCH (21:11)
[2019-11-03] MEDS: DAPTOMYCIN IVPB SCH (21:11)
[2019-11-04] VITALS (11 sets, daily range): BP systolic 149–188; BP diastolic 68–85
[2019-11-04] MEDS: PIPERACILLIN/TAZO/PMX 4.5GM 100 ML IV SCH ×4 (04:02→22:24)
[2019-11-04] MEDS: CARVEDILOL 3.125 MG TABLET PO SCH ×2 (05:28→16:58)
[2019-11-04] MEDS: ACETAMINOPHEN 325 MG TABLET PO PRN ×2 (05:31→20:24)
[2019-11-04] MEDS: INSULIN LISPRO 100 UNITS/ML, PEN SQ-INSULIN SCH ×4 (07:00→19:56)
[2019-11-04] MEDS: TAMSULOSIN 0.4 MG CAP.ER.24H PO SCH (08:04)
[2019-11-04] MEDS: CLOPIDOGREL 75 MG TABLET PO SCH (08:04)
[2019-11-04] MEDS: ASPIRIN 81 MG TABLET EC PO SCH (08:04)
[2019-11-04] MEDS: GABAPENTIN 100 MG CAPSULE PO SCH ×3 (08:04→20:24)
[2019-11-04] MEDS: LISINOPRIL 20 MG TABLET PO SCH ×2 (08:04→20:24)
[2019-11-04] MEDS: metFORMIN 500 MG TABLET PO SCH ×2 (08:05→16:05)
[2019-11-04] MEDS: SODIUM CHLORIDE FLUSH 10ML SYR IVF SCH ×2 (08:05→20:25)
[2019-11-04] MEDS: hydrALAzine 20 MG/ML, 1ML IV PRN ×2 (14:30→21:45)
[2019-11-04 16:12] LABS: ANION GAP 6 mmol/L (5-15); CALCIUM 8.5 mg/dL (8.5-10.1); CHLORIDE 113 mmol/L (98-107); CREATININE 1.18 mg/dL (0.7-1.3)
[2019-11-04] MEDS: ENOXAPARIN 40 MG/0.4 ML SQ SCH (16:58)
[2019-11-04] MEDS: SENNA/DOCUSATE TABLET PO SCH (20:24)
[2019-11-04] MEDS: SODIUM CHLORIDE 0.9% IVPB SCH (20:25)
[2019-11-04] MEDS: DAPTOMYCIN IVPB SCH (20:25)
[2019-11-04] MEDS: INSULIN GLARGINE 100 UNITS/ML, PEN SQ-INSULIN SCH (20:26)
[2019-11-05 01:12] VITALS: BP 164/78
[2019-11-05] MEDS: PIPERACILLIN/TAZO/PMX 4.5GM 100 ML IV SCH (04:25)
[2019-11-05] MEDS: ACETAMINOPHEN 325 MG TABLET PO PRN (04:26)
[2019-11-05 05:34] LABS: BASOPHILS # (AUTO) 0.04 x10^3/uL (0-0.1); BASOPHILS % (AUTO) 1 % (0-1); EOSINOPHILS % (AUTO) 5 % (1-7); LYMPHOCYTES # (AUTO) 1.79 x10^3/uL (1-3.4); LYMPHOCYTES % (AUTO) 24 % (22-44); MD NO; MEAN CORPUSCULAR HEMOGLOBIN 28.5 pg (27.5-34.5); MEAN CORPUSCULAR HGB CONC 33.1 g/dL (33.2-36.2); MEAN CORPUSCULAR VOLUME 85.9 fL (81-97); MEAN PLATELET VOLUME 8.4 fL (7.4-10.4); MONOCYTES # (AUTO) 0.61 x10^3/uL (0.2-0.8); MONOCYTES % (AUTO) 8 % (2-9); NEUTROPHILS % (AUTO) 63 % (42-75); PLATELET COUNT 218 x10^3/uL (130-400); RED BLOOD COUNT 2.75 x10^6/uL (4.38-5.82); RED CELL DISTRIBUTION WIDTH 13.9 % (9.4-14.8)
[2019-11-05 05:38] LABS: ANION GAP 6 mmol/L (5-15); CALCIUM 8.1 mg/dL (8.5-10.1); CHLORIDE 114 mmol/L (98-107); CREATININE 1.18 mg/dL (0.7-1.3)
[2019-11-05] MEDS: CARVEDILOL 3.125 MG TABLET PO SCH (06:15)
[2019-11-05] MEDS: INSULIN LISPRO 100 UNITS/ML, PEN SQ-INSULIN SCH ×2 (07:00→10:37)
[2019-11-05 07:58] VITALS: BP 167/76
[2019-11-05 08:00] VITALS: BP 177/81
[2019-11-05] MEDS: SODIUM CHLORIDE FLUSH 10ML SYR IVF SCH (08:05)
[2019-11-05] MEDS: CLOPIDOGREL 75 MG TABLET PO SCH (08:06)
[2019-11-05] MEDS: TAMSULOSIN 0.4 MG CAP.ER.24H PO SCH (08:06)
[2019-11-05] MEDS: ASPIRIN 81 MG TABLET EC PO SCH (08:06)
[2019-11-05] MEDS: metFORMIN 500 MG TABLET PO SCH (08:06)
[2019-11-05] MEDS: LISINOPRIL 20 MG TABLET PO SCH (08:06)
[2019-11-05] MEDS: GABAPENTIN 100 MG CAPSULE PO SCH (08:07)
[2019-11-05] MEDS ORDERED: POTASSIUM CHLORIDE 20 MEQ TAB.ER.PRT PO ONE (08:30)
[2019-11-05] MEDS ORDERED: AMOXICILLIN/CLAV 875-125MG TABLET PO SCH (10:00)
[2019-11-05 10:41] VITALS: BP 180/80
[2019-11-05] MEDS: hydrALAzine 20 MG/ML, 1ML IV PRN (10:46)
[2019-11-05] MEDS ORDERED: AMOX1TAB12 PO (10:54)
[2019-11-05] MEDS ORDERED: INSU100I13 SQ-INSULIN (10:54)
[2019-11-05] MEDS ORDERED: CARV3.1212 PO (10:54)
[2019-11-05] MEDS ORDERED: CLOP75TA PO (10:54)
[2019-11-05] MEDS ORDERED: INSULIN GLARGINE 100 UNITS/ML, PEN SQ-INSULIN SCH (21:00)
== END 2019-11-05 13:05 | disposition home or self-care (01) | DRG 252 ==
LOC: ED 11:25 → EDIP 15:11 → 3N 18:54
PROVIDERS: ADMIT Internal Medicine; ATTEND Emergency Medicine
PROC: 047K3DZ Dilation of Right Femoral Artery with Intraluminal Device, Percutaneous Approach (ICD-10-PCS; principal; 2019-10-29)
PROC: 047M3ZZ Dilation of Right Popliteal Artery, Percutaneous Approach (ICD-10-PCS; 2019-10-29)
PROC: B44LZZZ Ultrasonography of Femoral Artery (ICD-10-PCS; 2019-10-29)
PROC: B41D1ZZ Fluoroscopy of Aorta and Bilateral Lower Extremity Arteries using Low Osmolar Contrast (ICD-10-PCS; 2019-10-29)
DX: I70.209 Unspecified atherosclerosis of native arteries of extremities, unspecified extremity (principal); A48.0 Gas gangrene; E11.52 Type 2 diabetes mellitus with diabetic peripheral angiopathy with gangrene; L03.115 Cellulitis of right lower limb; M86.18 Other acute osteomyelitis, other site; D63.8 Anemia in other chronic diseases classified elsewhere; E11.22 Type 2 diabetes mellitus with diabetic chronic kidney disease; E78.5 Hyperlipidemia, unspecified; E87.6 Hypokalemia; I12.9 Hypertensive chronic kidney disease with stage 1 through stage 4 chronic kidney disease, or unspecified chronic kidney disease; K59.00 Constipation, unspecified; E11.69 Type 2 diabetes mellitus with other specified complication; N18.3 Chronic kidney disease, stage 3 (moderate); Z79.02 Long term (current) use of antithrombotics/antiplatelets; Z79.4 Long term (current) use of insulin; Z79.899 Other long term (current) drug therapy; Z83.3 Family history of diabetes mellitus; Z87.891 Personal history of nicotine dependence; Z89.512 Acquired absence of left leg below knee
CPT/HCPCS: 36415; 73660; 96374; 96375; 99285; J3490; 37226; 75625; 75716; 76937; 80048; 80053; 80202; 82040; 82550; 82565; 82962; 83036; 83540; 83550; 83605; 85025; 85651; 86140; 87040; 93922; 93926; 99156; 99157; C1725; G0378; J0295; J0878; J1644; J1650; J2250; J2405; J2543; J2720; J3010; J3370; C1751; C1760; C1769; C1876; C1894; J0360; J1815; J2270; J2310; J7030; J7050

== ENCOUNTER 2020-02-26 17:02 | Emergency (ER) | payer SELFPAY ==
[~2020-02-26] VITALS: Ht 172.7 cm; Wt 59.3 kg
[~2020-02-26 17:02] MED LIST changes: +CARV3.1212 PO; +CLOP75TA PO
[2020-02-26 17:14] VITALS: BP 122/77
--- NOTE | 2020-02-26 18:09 | NUR ---
team leader note: Pt to room from lobby.
--- NOTE | 2020-02-26 18:55 | NUR ---
WOUND REWRAPPED WITH GAUZE AND KERLIX, PER MD INSTRUCTIONS. PT GIVEN BOTTLE OF IODAFORM PACKING.
== END 2020-02-26 19:35 | disposition home or self-care (01) ==
LOC: ED 19:00
DX: S81.012A Laceration without foreign body, left knee, initial encounter (principal); Z48.00 Encounter for change or removal of nonsurgical wound dressing; E11.9 Type 2 diabetes mellitus without complications; Z87.891 Personal history of nicotine dependence; X58.XXXA Exposure to other specified factors, initial encounter; Y93.89 Activity, other specified; Y92.098 Other place in other non-institutional residence as the place of occurrence of the external cause; Y99.8 Other external cause status
CPT/HCPCS: 99283

== ENCOUNTER 2020-06-17 16:05 | Inpatient (IN) | payer SELFPAY ==
[~2020-06-17] VITALS: Ht 172.7 cm; Wt 90.0 kg
--- NOTE | 2020-06-17 16:52 | NUR ---
DEVULCANIZER LOADER: PT TO RADIOLOGY AND THEN TO ROOM.
[2020-06-17] MEDS ORDERED: SODIUM CHLORIDE FLUSH 10ML SYR IVF ONE (17:00)
[2020-06-17 17:23] LABS: BASOPHILS % (AUTO) 1 % (0-1); EOSINOPHILS % (AUTO) 2 % (1-7); LYMPHOCYTES % (AUTO) 14 % (22-44); MEAN CORPUSCULAR HEMOGLOBIN 28.2 pg (27.5-34.5); MEAN PLATELET VOLUME 8.2 fL (7.4-10.4); MONOCYTES % (AUTO) 9 % (2-9); NEUTROPHILS % (AUTO) 74 % (42-75); PLATELET COUNT 266 x10^3/uL (130-400); RED BLOOD COUNT 4.01 x10^6/uL (4.38-5.82); RED CELL DISTRIBUTION WIDTH 12.6 % (9.4-14.8)
--- NOTE | 2020-06-17 17:25 | NUR ---
PT ENDORSED TO WALLY GARCIA RN.
[2020-06-17 17:27] LABS: MD NO
[2020-06-17] MEDS ORDERED: DAPTOMYCIN 400 MG in SODIUM CHLORIDE 0.9% 100 ML IVPB SCH (17:30)
[2020-06-17] MEDS ORDERED: AMPICILLIN/SULBACTAM 3 GM in SODIUM CHLORIDE 0.9% 100 ML IV ONE (17:30)
[2020-06-17 17:32] LABS: ALANINE AMINOTRANSFERASE 17 U/L (12-78); ALBUMIN 3.3 g/dL (3.4-5.0); ANION GAP 5 mmol/L (5-15); CALCIUM 8.6 mg/dL (8.5-10.1); CHLORIDE 102 mmol/L (98-107); CREATININE 1.48 mg/dL (0.7-1.3)
[2020-06-17 17:34] LABS: ALKALINE PHOSPHATASE 170 U/L (45-117); BILIRUBIN,TOTAL 0.3 mg/dL (0.2-1.0); TOTAL PROTEIN 8.3 g/dL (6.4-8.2)
--- NOTE | 2020-06-17 18:16 | NUR ---
DR BUSTAMANTE AT TO DISCUSS POC: HOSPITAL ADMISSION.
[2020-06-17 18:18] LABS: HCT (SEDRATE) 34.4 % (39.2-51.8)
--- NOTE | 2020-06-17 18:30 | NUR ---
RASHAD WHITEHEAD AT BS FOR EXAM. BLD CX BAND ON PT'S WRIST.
--- NOTE | 2020-06-17 18:33 | NUR ---
MERCEDES HEBERT, INFUSING AT 200ML/HR VIA PUMP. IV SITE PATENT.
[2020-06-17] MEDS ORDERED: SODIUM CHLORIDE 0.9% 1,000 ML IV SCH (19:00)
[2020-06-17] MEDS ORDERED: VANCOMYCIN PER PHARMACY MC PRN (19:00)
[2020-06-17] MEDS ORDERED: BISACODYL 10 MG SUPP PR PRN (19:30)
[2020-06-17] MEDS ORDERED: POLYETHYLENE GLYCOL 17 GM PACKET PO PRN (19:30)
--- NOTE | 2020-06-17 19:56 | NUR ---
URINAL EMPTIED OF 800ML URINE
[2020-06-17] MEDS ORDERED: HEPARIN 5,000 UNITS/ML, 1ML ONE (20:49)
[2020-06-17] MEDS ORDERED: PIPERACILLIN/TAZO/PMX 3.375GM 50 ML ONE (20:49)
[2020-06-17] MEDS ORDERED: CARVEDILOL 12.5 MG TABLET ONE (20:49)
[2020-06-17] MEDS: CARVEDILOL 12.5 MG TABLET PO SCH (20:55)
[2020-06-17] MEDS: PIPERACILLIN/TAZO/PMX 3.375GM 50 ML IV SCH (20:59)
[2020-06-17] MEDS: HEPARIN 5,000 UNITS/ML, 1ML SQ SCH (21:00)
--- NOTE | 2020-06-17 21:00 | NUR ---
COREG AND HEPARIN GIVEN PER EMAR. BAILEE HEBERT; INFUSING AT 100ML/HR VIA PUMP. IV SITE PATENT.
[2020-06-17] MEDS: INSULIN LISPRO 100 UNITS/ML, PEN SQ-INSULIN SCH (21:21)
--- NOTE | 2020-06-17 21:21 | NUR ---
INSULIN 16 UNITS SQ GIVEN PER EMAR
[2020-06-17] MEDS ORDERED: PHARMACOKINETIC CONSULTATION MC ONE (21:30)
[2020-06-17] MEDS ORDERED: PHARMACOKINETIC MONITORING MC PRN (21:30)
[2020-06-17] MEDS ORDERED: VANCOMYCIN 1,600 MG in SODIUM CHLORIDE 0.9% 250 ML IV ONE (21:30)
--- NOTE | 2020-06-17 21:39 | NUR ---
VICENTE HEBERT; INFUSING AT 166.7ML/HR (1066MG/HR) VIA PUMP; IV SITE PATENT.
--- NOTE | 2020-06-17 21:55 | NUR ---
Note oern in EDM - 06/17/20 at 2157 by GABBY SEPSIS FLOW SHEET INTIATED. ONLY ONE NS BOLUS WAS ORDERED, FOLLOWED BY NS AT 50/HR. PT REPORT TO ADRIA VOGEL. PT CARE TRANSFERRED.
--- NOTE | 2020-06-17 21:58 | NUR ---
SEPSIS FLOW SHEET WAS INTITATED EARLIER. PT DOES NOT MEET ALL SEPSIS CRITERIA, AT THIS TIME.
[2020-06-17] MEDS: SODIUM CHLORIDE 0.9% 1,000 ML IV SCH (22:00)
--- NOTE | 2020-06-17 22:06 | NUR ---
PT REPORT TO ADRIA MARIA. PT CARE TRANSFERRED.
--- NOTE | 2020-06-17 22:12 | NUR ---
report recieved from sam bolaños. pt resting comffortably, iv fluids and abx running. states no needs at this time
--- NOTE | 2020-06-17 23:09 | NUR ---
PT PLACED ON HOSPITAL BED, PT ABLE TO SCOOT OVER TO NEW BED, NO OTHER NEEDS AT THIS TIME
--- NOTE | 2020-06-18 01:12 | NUR ---
pt sleeping in bed, respirations even/unlabored. monitors in place, call light within reach
--- NOTE | 2020-06-18 01:45 | NUR ---
REPORT GIVEN TO ADRIA BRADY.
[2020-06-18] MEDS: SODIUM CHLORIDE 0.9% 1,000 ML IV SCH (02:36)
[2020-06-18] MEDS: PIPERACILLIN/TAZO/PMX 3.375GM 50 ML IV SCH ×4 (03:01→22:29)
[2020-06-18] MEDS: CARVEDILOL 12.5 MG TABLET PO SCH (04:45)
[2020-06-18] MEDS: HEPARIN 5,000 UNITS/ML, 1ML SQ SCH ×3 (04:45→20:14)
[2020-06-18 05:31] LABS: BASOPHILS % (AUTO) 1 % (0-1); EOSINOPHILS % (AUTO) 1 % (1-7); LYMPHOCYTES % (AUTO) 13 % (22-44); MEAN CORPUSCULAR HEMOGLOBIN 28.6 pg (27.5-34.5); MEAN CORPUSCULAR HGB CONC 33.5 g/dL (33.2-36.2); MEAN PLATELET VOLUME 8.6 fL (7.4-10.4); MONOCYTES % (AUTO) 6 % (2-9); NEUTROPHILS % (AUTO) 81 % (42-75); PLATELET COUNT 237 x10^3/uL (130-400); RED BLOOD COUNT 3.78 x10^6/uL (4.38-5.82); RED CELL DISTRIBUTION WIDTH 12.9 % (9.4-14.8)
[2020-06-18 05:32] LABS: MD NO
[2020-06-18 05:35] LABS: ANION GAP 7 mmol/L (5-15); CALCIUM 8.6 mg/dL (8.5-10.1); CHLORIDE 111 mmol/L (98-107); CREATININE 1.29 mg/dL (0.7-1.3)
[2020-06-18 06:56] VITALS: BP 164/89
[2020-06-18] MEDS: INSULIN LISPRO 100 UNITS/ML, PEN SQ-INSULIN SCH ×4 (08:08→20:14)
[2020-06-18] MEDS: SENNA/DOCUSATE TABLET PO SCH (09:00)
[2020-06-18] MEDS: INSULIN GLARGINE 100 UNITS/ML, PEN SQ-INSULIN SCH ×2 (11:36→20:15)
[2020-06-18] MEDS: OXYcodone IR 5MG TABLET PO PRN (11:37)
[2020-06-18] MEDS ORDERED: GADOTERATE 7.5 MMOL/15 ML VIAL ONE (12:00)
[2020-06-18 12:37] LABS: CHOL/HDL RATIO 4.9; LDL/HDL RATIO 3.3 (0.5-3.0)
[2020-06-18 14:46] VITALS: BP 136/61
[2020-06-18] MEDS: VANCOMYCIN 1,300 MG in SODIUM CHLORIDE 0.9% 250 ML IV SCH (16:15)
[2020-06-18] MEDS: LABETALOL 100 MG TABLET PO SCH (18:07)
[2020-06-18 19:38] VITALS: BP 121/56
[2020-06-18] MEDS: ATORVASTATIN 40 MG TABLET PO SCH (20:14)
[2020-06-19 01:17] VITALS: BP 132/67
[2020-06-19] MEDS: PIPERACILLIN/TAZO/PMX 3.375GM 50 ML IV SCH ×4 (04:45→22:43)
[2020-06-19] MEDS: LABETALOL 100 MG TABLET PO SCH ×2 (04:46→17:24)
[2020-06-19] MEDS: HEPARIN 5,000 UNITS/ML, 1ML SQ SCH ×4 (04:46→21:43)
[2020-06-19 07:23] VITALS: BP 145/70
[2020-06-19] MEDS: INSULIN LISPRO 100 UNITS/ML, PEN SQ-INSULIN SCH ×4 (07:29→20:00)
[2020-06-19] MEDS: INSULIN GLARGINE 100 UNITS/ML, PEN SQ-INSULIN SCH ×2 (07:30→20:03)
[2020-06-19] MEDS: SENNA/DOCUSATE TABLET PO SCH (07:30)
[2020-06-19 09:33] LABS: BASOPHILS % (AUTO) 1 % (0-1); EOSINOPHILS % (AUTO) 3 % (1-7); LYMPHOCYTES % (AUTO) 18 % (22-44); MEAN CORPUSCULAR HEMOGLOBIN 28.6 pg (27.5-34.5); MEAN CORPUSCULAR HGB CONC 33.6 g/dL (33.2-36.2); MEAN PLATELET VOLUME 8.2 fL (7.4-10.4); MONOCYTES % (AUTO) 8 % (2-9); NEUTROPHILS % (AUTO) 70 % (42-75); PLATELET COUNT 232 x10^3/uL (130-400); RED BLOOD COUNT 3.29 x10^6/uL (4.38-5.82); RED CELL DISTRIBUTION WIDTH 12.7 % (9.4-14.8)
[2020-06-19 09:34] LABS: ANION GAP 3 mmol/L (5-15); CALCIUM 8.3 mg/dL (8.5-10.1); CHLORIDE 112 mmol/L (98-107); CREATININE 1.66 mg/dL (0.7-1.3)
[2020-06-19 09:35] LABS: MD NO
[2020-06-19 13:12] VITALS: BP 173/79
[2020-06-19] MEDS: OXYcodone IR 5MG TABLET PO PRN (13:23)
[2020-06-19] MEDS: VANCOMYCIN 1,300 MG in SODIUM CHLORIDE 0.9% 250 ML IV SCH (15:35)
[2020-06-19] MEDS: AMLODIPINE 10 MG TAB PO SCH (16:16)
[2020-06-19 18:58] VITALS: BP 157/67
[2020-06-19] MEDS: ATORVASTATIN 40 MG TABLET PO SCH (19:58)
[2020-06-19] MEDS: ASPIRIN 81 MG TABLET EC PO SCH (21:44)
[2020-06-20 00:57] VITALS: BP 135/60
[2020-06-20] MEDS: PIPERACILLIN/TAZO/PMX 3.375GM 50 ML IV SCH ×4 (04:57→23:00)
[2020-06-20] MEDS: LABETALOL 100 MG TABLET PO SCH ×2 (05:02→17:45)
[2020-06-20 05:03] VITALS: BP 152/73
[2020-06-20 06:37] VITALS: BP 142/63
[2020-06-20] MEDS ORDERED: FENTANYL PF 100 MCG/2ML ONE (07:40)
[2020-06-20] MEDS ORDERED: NALOXONE 1 MG/ML, 2ML ONE (07:41)
[2020-06-20] MEDS ORDERED: MIDAZOLAM 1 MG/ML, 5ML ONE (07:41)
[2020-06-20] MEDS ORDERED: HEPARIN 1,000 UNITS/ML, 10ML ONE (07:41)
[2020-06-20] MEDS ORDERED: LIDOCAINE 1%, 10ML ONE (07:41)
[2020-06-20] MEDS ORDERED: PROTAMINE SULFATE 10 MG/ML, 25ML ONE (07:41)
[2020-06-20] MEDS ORDERED: FLUMAZENIL 0.1 MG/1 ML, 5ML ONE (07:41)
[2020-06-20] MEDS: INSULIN LISPRO 100 UNITS/ML, PEN SQ-INSULIN SCH ×4 (07:43→20:10)
[2020-06-20] MEDS ORDERED: SODIUM CHLORIDE 0.9% 1,000 ML IV SCH (08:30)
[2020-06-20] MEDS: INSULIN GLARGINE 100 UNITS/ML, PEN SQ-INSULIN SCH ×2 (09:00→20:11)
[2020-06-20] MEDS: CLOPIDOGREL 75 MG TABLET PO SCH (12:05)
[2020-06-20] MEDS: SENNA/DOCUSATE TABLET PO SCH (12:05)
[2020-06-20 14:25] VITALS: BP 164/70
[2020-06-20] MEDS: VANCOMYCIN 1,300 MG in SODIUM CHLORIDE 0.9% 250 ML IV SCH (15:53)
[2020-06-20] MEDS: AMLODIPINE 10 MG TAB PO SCH (15:53)
[2020-06-20] MEDS: HEPARIN 5,000 UNITS/ML, 1ML SQ SCH ×2 (17:45→23:38)
[2020-06-20 18:37] VITALS: BP 182/78
[2020-06-20 20:01] VITALS: BP 169/75
[2020-06-20] MEDS: ATORVASTATIN 40 MG TABLET PO SCH (20:09)
[2020-06-21 00:31] VITALS: BP 142/61
[2020-06-21] MEDS: LABETALOL 100 MG TABLET PO SCH ×2 (05:23→17:08)
[2020-06-21] MEDS: ASPIRIN 81 MG TABLET EC PO SCH (05:23)
[2020-06-21] MEDS: PIPERACILLIN/TAZO/PMX 3.375GM 50 ML IV SCH ×4 (05:24→23:16)
[2020-06-21 06:08] LABS: ANION GAP 5 mmol/L (5-15); CALCIUM 8.2 mg/dL (8.5-10.1); CHLORIDE 114 mmol/L (98-107); CREATININE 1.35 mg/dL (0.7-1.3)
[2020-06-21] MEDS: INSULIN LISPRO 100 UNITS/ML, PEN SQ-INSULIN SCH ×4 (07:00→21:00)
[2020-06-21 07:17] VITALS: BP 150/68
[2020-06-21] MEDS: SENNA/DOCUSATE TABLET PO SCH (07:31)
[2020-06-21] MEDS: CLOPIDOGREL 75 MG TABLET PO SCH (07:31)
[2020-06-21] MEDS: HEPARIN 5,000 UNITS/ML, 1ML SQ SCH ×2 (07:32→17:09)
[2020-06-21] MEDS: INSULIN GLARGINE 100 UNITS/ML, PEN SQ-INSULIN SCH ×2 (07:34→21:54)
[2020-06-21 13:19] VITALS: BP 133/66
[2020-06-21] MEDS: AMLODIPINE 10 MG TAB PO SCH (15:56)
[2020-06-21] MEDS: VANCOMYCIN 1,300 MG in SODIUM CHLORIDE 0.9% 250 ML IV SCH (15:57)
[2020-06-21] MEDS: OXYcodone IR 5MG TABLET PO PRN (17:53)
[2020-06-21 18:59] VITALS: BP 122/60
[2020-06-21] MEDS: ATORVASTATIN 40 MG TABLET PO SCH (21:53)
[2020-06-22] MEDS: HEPARIN 5,000 UNITS/ML, 1ML SQ SCH ×4 (01:05→23:10)
[2020-06-22] MEDS: GUAIFENESIN/DM 200-20MG, 10ML UDC PO PRN ×3 (01:10→17:48)
[2020-06-22 01:31] VITALS: BP 132/63
[2020-06-22] MEDS: PIPERACILLIN/TAZO/PMX 3.375GM 50 ML IV SCH ×4 (05:31→22:57)
[2020-06-22] MEDS: ASPIRIN 81 MG TABLET EC PO SCH (05:31)
[2020-06-22] MEDS: LABETALOL 100 MG TABLET PO SCH ×2 (05:31→17:47)
[2020-06-22] MEDS: INSULIN LISPRO 100 UNITS/ML, PEN SQ-INSULIN SCH ×4 (07:00→20:36)
[2020-06-22 07:04] VITALS: BP 138/69
[2020-06-22] MEDS: SENNA/DOCUSATE TABLET PO SCH (08:50)
[2020-06-22] MEDS: CLOPIDOGREL 75 MG TABLET PO SCH (09:18)
[2020-06-22] MEDS: INSULIN GLARGINE 100 UNITS/ML, PEN SQ-INSULIN SCH ×2 (09:19→20:36)
[2020-06-22 12:27] VITALS: BP 132/64
[2020-06-22] MEDS: AMLODIPINE 10 MG TAB PO SCH (16:12)
[2020-06-22 17:43] VITALS: BP 163/72
[2020-06-22 18:53] LABS: CLOSTRIDIUM DIFFICILE ANTIGEN NEGATIVE; CLOSTRIDIUM DIFFICILE TOXIN NEGATIVE (Negative)
[2020-06-22] MEDS: ATORVASTATIN 40 MG TABLET PO SCH (20:36)
[2020-06-23] MEDS: ASPIRIN 81 MG TABLET EC PO SCH (05:19)
[2020-06-23] MEDS: LABETALOL 100 MG TABLET PO SCH ×2 (05:19→17:22)
[2020-06-23] MEDS: PIPERACILLIN/TAZO/PMX 3.375GM 50 ML IV SCH ×4 (05:19→23:02)
[2020-06-23 05:58] LABS: BASOPHILS % (AUTO) 0 % (0-1); EOSINOPHILS % (AUTO) 2 % (1-7); LYMPHOCYTES % (AUTO) 13 % (22-44); MEAN CORPUSCULAR HGB CONC 34.2 g/dL (33.2-36.2); MONOCYTES % (AUTO) 8 % (2-9); NEUTROPHILS % (AUTO) 77 % (42-75); PLATELET COUNT 258 x10^3/uL (130-400); RED BLOOD COUNT 2.97 x10^6/uL (4.38-5.82); RED CELL DISTRIBUTION WIDTH 12.8 % (9.4-14.8)
[2020-06-23 06:03] LABS: MD NO
[2020-06-23 06:08] LABS: ALANINE AMINOTRANSFERASE 15 U/L (12-78); ALBUMIN 2.1 g/dL (3.4-5.0); ANION GAP 7 mmol/L (5-15); CALCIUM 8.4 mg/dL (8.5-10.1); CHLORIDE 112 mmol/L (98-107); CREATININE 1.26 mg/dL (0.7-1.3)
[2020-06-23 06:10] LABS: ALKALINE PHOSPHATASE 155 U/L (45-117); BILIRUBIN,TOTAL 0.4 mg/dL (0.2-1.0); TOTAL PROTEIN 6.3 g/dL (6.4-8.2)
[2020-06-23] MEDS: INSULIN LISPRO 100 UNITS/ML, PEN SQ-INSULIN SCH ×4 (07:00→19:58)
[2020-06-23] MEDS: SENNA/DOCUSATE TABLET PO SCH (09:00)
[2020-06-23 09:01] VITALS: BP 130/70
[2020-06-23] MEDS: HEPARIN 5,000 UNITS/ML, 1ML SQ SCH ×2 (09:12→17:23)
[2020-06-23] MEDS: CLOPIDOGREL 75 MG TABLET PO SCH (09:12)
[2020-06-23] MEDS: INSULIN GLARGINE 100 UNITS/ML, PEN SQ-INSULIN SCH ×2 (09:13→20:01)
[2020-06-23 12:31] VITALS: BP 152/67
[2020-06-23] MEDS: AMLODIPINE 10 MG TAB PO SCH (16:22)
[2020-06-23] MEDS: OXYcodone IR 5MG TABLET PO PRN (19:21)
[2020-06-23 19:45] VITALS: BP 166/73
[2020-06-23] MEDS: ATORVASTATIN 40 MG TABLET PO SCH (19:58)
[2020-06-24] MEDS: HEPARIN 5,000 UNITS/ML, 1ML SQ SCH ×4 (00:47→23:13)
[2020-06-24 01:13] VITALS: BP 145/70
[2020-06-24] MEDS: PIPERACILLIN/TAZO/PMX 3.375GM 50 ML IV SCH ×4 (03:57→23:13)
[2020-06-24] MEDS: LABETALOL 100 MG TABLET PO SCH ×2 (04:44→17:06)
[2020-06-24] MEDS: ASPIRIN 81 MG TABLET EC PO SCH (04:44)
[2020-06-24 06:31] LABS: BASOPHILS % (AUTO) 1 % (0-1); EOSINOPHILS % (AUTO) 3 % (1-7); LYMPHOCYTES % (AUTO) 17 % (22-44); MEAN CORPUSCULAR HEMOGLOBIN 28.7 pg (27.5-34.5); MEAN CORPUSCULAR HGB CONC 33.8 g/dL (33.2-36.2); MEAN PLATELET VOLUME 8.4 fL (7.4-10.4); MONOCYTES % (AUTO) 10 % (2-9); NEUTROPHILS % (AUTO) 70 % (42-75); PLATELET COUNT 271 x10^3/uL (130-400); RED BLOOD COUNT 2.93 x10^6/uL (4.38-5.82); RED CELL DISTRIBUTION WIDTH 13.2 % (9.4-14.8)
[2020-06-24 06:35] LABS: MD NO
[2020-06-24] MEDS: INSULIN LISPRO 100 UNITS/ML, PEN SQ-INSULIN SCH ×3 (07:00→17:05)
[2020-06-24 09:00] VITALS: BP 159/70
[2020-06-24] MEDS: SENNA/DOCUSATE TABLET PO SCH (09:00)
[2020-06-24] MEDS: CLOPIDOGREL 75 MG TABLET PO SCH (09:00)
[2020-06-24] MEDS: INSULIN GLARGINE 100 UNITS/ML, PEN SQ-INSULIN SCH ×2 (09:35→20:15)
[2020-06-24] MEDS: OXYcodone IR 5MG TABLET PO PRN (09:38)
[2020-06-24 15:59] VITALS: BP 170/71
[2020-06-24] MEDS: INSULIN LISPRO 100 UNIT/ML, 3ML VIAL SQ-INSULIN SCH (19:00)
[2020-06-24] MEDS: ATORVASTATIN 40 MG TABLET PO SCH (20:10)
[2020-06-24 21:32] VITALS: BP 164/68
[2020-06-25 00:30] VITALS: BP 157/72
[2020-06-25] MEDS: LABETALOL 100 MG TABLET PO SCH ×2 (05:22→17:13)
[2020-06-25] MEDS: ASPIRIN 81 MG TABLET EC PO SCH (05:22)
[2020-06-25] MEDS: PIPERACILLIN/TAZO/PMX 3.375GM 50 ML IV SCH ×4 (05:22→23:00)
[2020-06-25 06:06] LABS: BASOPHILS % (AUTO) 1 % (0-1); EOSINOPHILS % (AUTO) 2 % (1-7); LYMPHOCYTES % (AUTO) 14 % (22-44); MEAN CORPUSCULAR HEMOGLOBIN 28.2 pg (27.5-34.5); MEAN CORPUSCULAR HGB CONC 33.2 g/dL (33.2-36.2); MEAN PLATELET VOLUME 8.5 fL (7.4-10.4); MONOCYTES % (AUTO) 10 % (2-9); NEUTROPHILS % (AUTO) 74 % (42-75); PLATELET COUNT 266 x10^3/uL (130-400); RED BLOOD COUNT 3.03 x10^6/uL (4.38-5.82); RED CELL DISTRIBUTION WIDTH 12.8 % (9.4-14.8)
[2020-06-25 06:10] LABS: MD NO
[2020-06-25 06:19] LABS: CHLORIDE 111 mmol/L (98-107)
[2020-06-25 06:29] LABS: ALANINE AMINOTRANSFERASE 13 U/L (12-78); ALKALINE PHOSPHATASE 157 U/L (45-117); ANION GAP 7 mmol/L (5-15); BILIRUBIN,TOTAL 0.4 mg/dL (0.2-1.0); CALCIUM 8.2 mg/dL (8.5-10.1); CREATININE 1.36 mg/dL (0.7-1.3); TOTAL PROTEIN 6.4 g/dL (6.4-8.2)
[2020-06-25 07:28] VITALS: BP 160/68
[2020-06-25] MEDS: INSULIN LISPRO 100 UNIT/ML, 3ML VIAL SQ-INSULIN SCH ×3 (08:00→16:16)
[2020-06-25] MEDS: SENNA/DOCUSATE TABLET PO SCH (08:58)
[2020-06-25] MEDS: CLOPIDOGREL 75 MG TABLET PO SCH (08:58)
[2020-06-25] MEDS: INSULIN GLARGINE 100 UNITS/ML, PEN SQ-INSULIN SCH ×2 (08:59→19:53)
[2020-06-25] MEDS ORDERED: LOSARTAN 50MG TABLET PO SCH ×2 (09:00→21:00)
[2020-06-25] MEDS: HEPARIN 5,000 UNITS/ML, 1ML SQ SCH (09:02)
[2020-06-25] MEDS: LOSARTAN 50MG TABLET PO SCH (13:20)
[2020-06-25 13:45] VITALS: BP 178/79
[2020-06-25] MEDS ORDERED: HEPARIN 5,000 UNITS/ML, 1ML SQ ONE (17:00)
[2020-06-25 18:37] VITALS: BP 145/67
[2020-06-25] MEDS: ATORVASTATIN 40 MG TABLET PO SCH (19:53)
[2020-06-26 00:55] VITALS: BP 178/75
[2020-06-26] MEDS: hydrALAzine 20 MG/ML, 1ML IV PRN (01:12)
[2020-06-26] MEDS: PIPERACILLIN/TAZO/PMX 3.375GM 50 ML IV SCH ×4 (05:00→22:25)
[2020-06-26] MEDS: ASPIRIN 81 MG TABLET EC PO SCH (05:22)
[2020-06-26] MEDS: LABETALOL 100 MG TABLET PO SCH ×2 (05:23→16:31)
[2020-06-26 06:00] LABS: HCT (SEDRATE) 24.9 % (39.2-51.8)
[2020-06-26 06:02] LABS: BASOPHILS % (AUTO) 0 % (0-1); EOSINOPHILS % (AUTO) 2 % (1-7); LYMPHOCYTES % (AUTO) 12 % (22-44); MEAN CORPUSCULAR HEMOGLOBIN 28.6 pg (27.5-34.5); MEAN CORPUSCULAR HGB CONC 33.6 g/dL (33.2-36.2); MEAN PLATELET VOLUME 8.5 fL (7.4-10.4); MONOCYTES % (AUTO) 10 % (2-9); NEUTROPHILS % (AUTO) 76 % (42-75); PLATELET COUNT 296 x10^3/uL (130-400); RED BLOOD COUNT 2.97 x10^6/uL (4.38-5.82)
[2020-06-26 06:03] LABS: MD NO
[2020-06-26 06:11] LABS: ALBUMIN 1.9 g/dL (3.4-5.0); ANION GAP 8 mmol/L (5-15); CALCIUM 8.5 mg/dL (8.5-10.1); CHLORIDE 112 mmol/L (98-107)
[2020-06-26 06:21] LABS: ALANINE AMINOTRANSFERASE 14 U/L (12-78); ALKALINE PHOSPHATASE 158 U/L (45-117); BILIRUBIN,TOTAL 0.4 mg/dL (0.2-1.0); CREATININE 1.32 mg/dL (0.7-1.3); TOTAL PROTEIN 6.3 g/dL (6.4-8.2)
[2020-06-26] MEDS: INSULIN LISPRO 100 UNIT/ML, 3ML VIAL SQ-INSULIN SCH ×3 (08:00→16:40)
[2020-06-26] MEDS ORDERED: BUPIVACAINE/PF 0.5% ONE (08:02)
[2020-06-26] MEDS ORDERED: LIDOCAINE/PF 1%, 30ML ONE (08:02)
[2020-06-26] MEDS: INSULIN GLARGINE 100 UNITS/ML, PEN SQ-INSULIN SCH ×2 (08:08→21:00)
[2020-06-26] MEDS: SENNA/DOCUSATE TABLET PO SCH (08:08)
[2020-06-26] MEDS: LOSARTAN 50MG TABLET PO SCH (08:08)
[2020-06-26] MEDS: CLOPIDOGREL 75 MG TABLET PO SCH (08:08)
[2020-06-26] MEDS ORDERED: CHLORHEXIDINE 15 ML UDC ONE (08:29)
[2020-06-26] MEDS ORDERED: CHLORHEXIDINE 15 ML UDC MM ONE (08:30)
[2020-06-26 08:42] VITALS: BP 151/57
[2020-06-26] MEDS ORDERED: MIDAZOLAM 1 MG/ML, 2ML ONE (08:48)
[2020-06-26] MEDS ORDERED: FENTANYL PF 100 MCG/2ML ONE (08:48)
[2020-06-26] MEDS ORDERED: ONDANSETRON 2MG/ML, 2ML ONE (09:25)
[2020-06-26] MEDS ORDERED: DEXAMETHASONE 4 MG/ML, 1ML ONE (09:25)
[2020-06-26] MEDS ORDERED: PROPOFOL 10 MG/ML, 20ML ONE (09:25)
[2020-06-26] MEDS ORDERED: FENTANYL PF 100 MCG/2ML IV PRN (09:30)
[2020-06-26] MEDS ORDERED: ACETAMINOPHEN 325 MG TABLET PO PRN (09:30)
[2020-06-26] MEDS ORDERED: MEPERIDINE/PF 25MG/0.5ML IVPush PRN (09:30)
[2020-06-26] MEDS ORDERED: LORazepam 2 MG/ML, 1ML IVPush PRN (09:30)
[2020-06-26] MEDS ORDERED: HYDROmorphone 1 MG/ML, 1ML INJ IVPush PRN (09:30)
[2020-06-26] MEDS ORDERED: LABETALOL 5MG/ML, 20ML IV PRN (09:30)
[2020-06-26] MEDS ORDERED: OXYcodone 5 MG/5 ML ORAL.SOL UDC PO PRN (09:30)
[2020-06-26] MEDS ORDERED: ALBUTEROL SULFATE 2.5 MG/3 ML NPPB PRN (09:30)
[2020-06-26] MEDS ORDERED: PROMETHAZINE 25 MG/ML, 1ML IVPush PRN (09:30)
[2020-06-26 12:35] VITALS: BP 154/73
[2020-06-26] MEDS: OXYcodone IR 5MG TABLET PO PRN (16:32)
[2020-06-26 17:33] VITALS: BP 143/66
[2020-06-26 18:30] VITALS: BP 143/71
[2020-06-26] MEDS: ATORVASTATIN 40 MG TABLET PO SCH (22:24)
[2020-06-27] MEDS: PIPERACILLIN/TAZO/PMX 3.375GM 50 ML IV SCH ×4 (05:19→23:00)
[2020-06-27] MEDS: GUAIFENESIN/DM 200-20MG, 10ML UDC PO PRN (05:21)
[2020-06-27] MEDS: LABETALOL 100 MG TABLET PO SCH ×2 (05:21→16:54)
[2020-06-27] MEDS: ASPIRIN 81 MG TABLET EC PO SCH (05:21)
[2020-06-27 06:58] VITALS: BP 135/69
[2020-06-27] MEDS: CLOPIDOGREL 75 MG TABLET PO SCH (07:40)
[2020-06-27] MEDS: LOSARTAN 50MG TABLET PO SCH (07:41)
[2020-06-27] MEDS: INSULIN LISPRO 100 UNIT/ML, 3ML VIAL SQ-INSULIN SCH ×3 (07:42→16:52)
[2020-06-27] MEDS: SENNA/DOCUSATE TABLET PO SCH (07:44)
[2020-06-27] MEDS: INSULIN GLARGINE 100 UNITS/ML, PEN SQ-INSULIN SCH ×3 (07:44→20:47)
[2020-06-27 13:33] VITALS: BP 112/73
[2020-06-27] MEDS: OXYcodone IR 5MG TABLET PO PRN (14:00)
[2020-06-27 20:00] VITALS: BP 133/66
[2020-06-27] MEDS: ATORVASTATIN 40 MG TABLET PO SCH (20:43)
[2020-06-28 01:00] VITALS: BP 146/60
[2020-06-28] MEDS: ASPIRIN 81 MG TABLET EC PO SCH (05:43)
[2020-06-28] MEDS: LABETALOL 100 MG TABLET PO SCH ×2 (05:44→17:58)
[2020-06-28] MEDS: PIPERACILLIN/TAZO/PMX 3.375GM 50 ML IV SCH ×4 (05:44→23:17)
[2020-06-28 06:19] LABS: BASOPHILS % (AUTO) 1 % (0-1); EOSINOPHILS % (AUTO) 2 % (1-7); LYMPHOCYTES % (AUTO) 11 % (22-44); MEAN CORPUSCULAR HEMOGLOBIN 28.2 pg (27.5-34.5); MEAN CORPUSCULAR HGB CONC 33.1 g/dL (33.2-36.2); MEAN PLATELET VOLUME 8.2 fL (7.4-10.4); MONOCYTES % (AUTO) 9 % (2-9); NEUTROPHILS % (AUTO) 77 % (42-75); PLATELET COUNT 294 x10^3/uL (130-400); RED BLOOD COUNT 2.87 x10^6/uL (4.38-5.82)
[2020-06-28 06:22] LABS: CHLORIDE 110 mmol/L (98-107)
[2020-06-28 06:28] LABS: ALANINE AMINOTRANSFERASE 12 U/L (12-78); ALBUMIN 1.9 g/dL (3.4-5.0); ALKALINE PHOSPHATASE 203 U/L (45-117); ANION GAP 7 mmol/L (5-15); BILIRUBIN,TOTAL 0.4 mg/dL (0.2-1.0); CALCIUM 8.4 mg/dL (8.5-10.1); CREATININE 2.14 mg/dL (0.7-1.3); TOTAL PROTEIN 6.4 g/dL (6.4-8.2)
[2020-06-28 06:32] LABS: MD NO
[2020-06-28] MEDS: INSULIN LISPRO 100 UNIT/ML, 3ML VIAL SQ-INSULIN SCH ×3 (08:00→16:56)
[2020-06-28] MEDS: LOSARTAN 50MG TABLET PO SCH (08:06)
[2020-06-28] MEDS: CLOPIDOGREL 75 MG TABLET PO SCH (08:06)
[2020-06-28] MEDS: SENNA/DOCUSATE TABLET PO SCH (08:10)
[2020-06-28] MEDS: INSULIN GLARGINE 100 UNITS/ML, PEN SQ-INSULIN SCH ×2 (08:12→21:40)
[2020-06-28 08:41] VITALS: BP 159/72
[2020-06-28 14:11] VITALS: BP 158/68
[2020-06-28 20:13] VITALS: BP 177/75
[2020-06-28] MEDS: ONDANSETRON ODT 4 MG PO PRN (20:48)
[2020-06-28] MEDS: ATORVASTATIN 40 MG TABLET PO SCH (21:00)
[2020-06-28] MEDS: MELATONIN 5 MG TABLET PO PRN (21:37)
[2020-06-29] MEDS: PIPERACILLIN/TAZO/PMX 3.375GM 50 ML IV SCH ×4 (05:56→22:52)
[2020-06-29] MEDS: LABETALOL 100 MG TABLET PO SCH ×2 (05:57→17:09)
[2020-06-29] MEDS: ASPIRIN 81 MG TABLET EC PO SCH (05:57)
[2020-06-29 07:44] VITALS: BP 163/73
[2020-06-29] MEDS: SENNA/DOCUSATE TABLET PO SCH (07:45)
[2020-06-29] MEDS: CLOPIDOGREL 75 MG TABLET PO SCH (07:45)
[2020-06-29] MEDS: LOSARTAN 50MG TABLET PO SCH (07:45)
[2020-06-29] MEDS: INSULIN LISPRO 100 UNIT/ML, 3ML VIAL SQ-INSULIN SCH ×3 (08:00→16:17)
[2020-06-29] MEDS: INSULIN GLARGINE 100 UNITS/ML, PEN SQ-INSULIN SCH ×3 (08:00→22:46)
[2020-06-29] MEDS: OXYcodone IR 5MG TABLET PO PRN (10:24)
[2020-06-29 13:30] VITALS: BP 174/76
[2020-06-29 19:54] VITALS: BP 151/72
[2020-06-29] MEDS: MELATONIN 5 MG TABLET PO PRN (22:40)
[2020-06-29] MEDS: ATORVASTATIN 40 MG TABLET PO SCH (22:41)
[2020-06-30] MEDS: PIPERACILLIN/TAZO/PMX 3.375GM 50 ML IV SCH ×4 (05:09→23:21)
[2020-06-30] MEDS: LABETALOL 100 MG TABLET PO SCH ×2 (05:10→16:45)
[2020-06-30] MEDS: ASPIRIN 81 MG TABLET EC PO SCH (05:10)
[2020-06-30] MEDS: INSULIN LISPRO 100 UNIT/ML, 3ML VIAL SQ-INSULIN SCH ×3 (08:00→16:44)
[2020-06-30] MEDS: SENNA/DOCUSATE TABLET PO SCH (08:00)
[2020-06-30 08:04] VITALS: BP 169/72
[2020-06-30] MEDS: INSULIN GLARGINE 100 UNITS/ML, PEN SQ-INSULIN SCH ×2 (09:00→20:14)
[2020-06-30] MEDS: ONDANSETRON ODT 4 MG PO PRN (09:33)
[2020-06-30] MEDS: LOSARTAN 50MG TABLET PO SCH (10:19)
[2020-06-30] MEDS: CLOPIDOGREL 75 MG TABLET PO SCH (10:19)
[2020-06-30 13:29] VITALS: BP 169/79
[2020-06-30] MEDS: ATORVASTATIN 40 MG TABLET PO SCH (19:32)
[2020-06-30] MEDS: ACETAMINOPHEN 325 MG TABLET PO PRN ×2 (20:13→20:15)
[2020-06-30 20:31] VITALS: BP 192/87
[2020-07-01 02:05] VITALS: BP 184/87
[2020-07-01] MEDS: ASPIRIN 81 MG TABLET EC PO SCH (05:29)
[2020-07-01] MEDS: PIPERACILLIN/TAZO/PMX 3.375GM 50 ML IV SCH ×4 (05:29→23:28)
[2020-07-01] MEDS: LABETALOL 100 MG TABLET PO SCH ×3 (05:42→21:15)
[2020-07-01] MEDS: INSULIN LISPRO 100 UNIT/ML, 3ML VIAL SQ-INSULIN SCH ×3 (07:58→17:00)
[2020-07-01] MEDS: SENNA/DOCUSATE TABLET PO SCH (07:58)
[2020-07-01] MEDS: LOSARTAN 50MG TABLET PO SCH (07:58)
[2020-07-01] MEDS: CLOPIDOGREL 75 MG TABLET PO SCH (07:58)
[2020-07-01 08:56] VITALS: BP 185/83
[2020-07-01] MEDS: INSULIN GLARGINE 100 UNITS/ML, PEN SQ-INSULIN SCH ×2 (08:57→21:15)
[2020-07-01] MEDS: SODIUM CHLORIDE 0.9% 1,000 ML IV SCH (10:30)
[2020-07-01 11:17] VITALS: BP 150/72
[2020-07-01 11:54] LABS: BASOPHILS % (AUTO) 0 % (0-1); EOSINOPHILS % (AUTO) 2 % (1-7); LYMPHOCYTES % (AUTO) 8 % (22-44); MEAN CORPUSCULAR HEMOGLOBIN 28.3 pg (27.5-34.5); MEAN CORPUSCULAR HGB CONC 33.2 g/dL (33.2-36.2); MEAN PLATELET VOLUME 7.8 fL (7.4-10.4); MONOCYTES % (AUTO) 8 % (2-9); NEUTROPHILS % (AUTO) 82 % (42-75); PLATELET COUNT 338 x10^3/uL (130-400); RED BLOOD COUNT 2.84 x10^6/uL (4.38-5.82); RED CELL DISTRIBUTION WIDTH 13.2 % (9.4-14.8)
[2020-07-01 11:57] LABS: MD NO
[2020-07-01 12:06] LABS: ANION GAP 6 mmol/L (5-15); CALCIUM 8.1 mg/dL (8.5-10.1); CHLORIDE 108 mmol/L (98-107); CREATININE 1.54 mg/dL (0.7-1.3)
[2020-07-01] MEDS ORDERED: FENTANYL PF 250 MCG/5ML ONE (12:21)
[2020-07-01] MEDS ORDERED: THROMBIN 20,000 UNIT VIAL TP ONE (13:41)
[2020-07-01] MEDS ORDERED: HEPARIN 1,000 UNITS/ML, 10ML ONE ×2 (13:41→17:02)
[2020-07-01] MEDS ORDERED: PROTAMINE SULFATE 10 MG/ML, 5ML ONE (13:41)
[2020-07-01] MEDS ORDERED: BUPIVACAINE/PF 0.5% ONE (13:41)
[2020-07-01] MEDS ORDERED: ONDANSETRON 2MG/ML, 2ML ONE ×2 (14:07→17:16)
[2020-07-01] MEDS ORDERED: DEXAMETHASONE 4 MG/ML, 1ML ONE (14:07)
[2020-07-01] MEDS ORDERED: EPHEDRINE 50 MG/ML, 1ML ONE (15:06)
[2020-07-01] MEDS ORDERED: OMNIPAQUE 350 MG/ML, 50 ML BOTTLE ONE (16:45)
[2020-07-01] MEDS ORDERED: OMNIPAQUE 350 MG/ML, 50 ML BOTTLE IV ONE (17:11)
[2020-07-01] MEDS ORDERED: NEOSTIGMINE 1 MG/ML, 10ML ONE (17:16)
[2020-07-01] MEDS ORDERED: CEFAZOLIN 1,000 MG ONE (17:16)
[2020-07-01] MEDS ORDERED: PROPOFOL 10 MG/ML, 20ML ONE (17:16)
[2020-07-01] MEDS ORDERED: ROCURONIUM 10MG/ML,5ML ONE (17:16)
[2020-07-01] MEDS ORDERED: GLYCOPYRROLATE 0.2MG/1ML, 5ML ONE (17:16)
[2020-07-01] MEDS ORDERED: SUCCINYLCHOLINE 20 MG/ML, 10ML ONE (17:16)
[2020-07-01] MEDS ORDERED: LABETALOL 200 MG TABLET PO SCH (18:00)
[2020-07-01] MEDS ORDERED: FENTANYL PF 100 MCG/2ML ONE (18:13)
[2020-07-01] MEDS ORDERED: hydrALAzine 20 MG/ML, 1ML ONE (18:15)
[2020-07-01] MEDS ORDERED: HALOPERIDOL 5 MG/ML IV PRN (18:30)
[2020-07-01] MEDS ORDERED: HYDROmorphone 1 MG/ML, 1ML INJ IVPush PRN (18:30)
[2020-07-01] MEDS ORDERED: FENTANYL PF 100 MCG/2ML IV PRN (18:30)
[2020-07-01] MEDS ORDERED: DIPHENHYDRAMINE 50 MG/ML, 1ML IVPush PRN (18:30)
[2020-07-01] MEDS ORDERED: hydrALAzine 20 MG/ML, 1ML IV PRN (18:30)
[2020-07-01] MEDS ORDERED: LABETALOL 5MG/ML, 20ML IV PRN (18:30)
[2020-07-01] MEDS ORDERED: PROMETHAZINE 25 MG/ML, 1ML IVPush PRN (18:30)
[2020-07-01] MEDS ORDERED: MEPERIDINE/PF 25MG/0.5ML IVPush PRN (18:30)
[2020-07-01] MEDS ORDERED: OXYcodone 5 MG/5 ML ORAL.SOL UDC PO PRN (18:30)
[2020-07-01 19:40] VITALS: BP 148/76
[2020-07-01] MEDS: FAMOTIDINE 10 MG TAB PO SCH (21:15)
[2020-07-01] MEDS: ATORVASTATIN 40 MG TABLET PO SCH (21:16)
[2020-07-01] MEDS: OXYcodone IR 5MG TABLET PO PRN (21:51)
[2020-07-02 00:11] VITALS: BP 123/67
[2020-07-02 04:12] VITALS: BP 120/63
[2020-07-02] MEDS: SODIUM CHLORIDE 0.9% 1,000 ML IV SCH (05:00)
[2020-07-02] MEDS: PIPERACILLIN/TAZO/PMX 3.375GM 50 ML IV SCH ×3 (05:00→20:57)
[2020-07-02] MEDS: ASPIRIN 81 MG TABLET EC PO SCH (06:17)
[2020-07-02 06:26] LABS: BASOPHILS % (AUTO) 0 % (0-1); EOSINOPHILS % (AUTO) 0 % (1-7); LYMPHOCYTES % (AUTO) 7 % (22-44); MEAN CORPUSCULAR HEMOGLOBIN 28.3 pg (27.5-34.5); MEAN CORPUSCULAR HGB CONC 33.1 g/dL (33.2-36.2); MONOCYTES % (AUTO) 8 % (2-9); NEUTROPHILS % (AUTO) 85 % (42-75); PLATELET COUNT 366 x10^3/uL (130-400); RED BLOOD COUNT 2.67 x10^6/uL (4.38-5.82); RED CELL DISTRIBUTION WIDTH 13.2 % (9.4-14.8)
[2020-07-02 06:30] LABS: CHLORIDE 108 mmol/L (98-107)
[2020-07-02 06:31] LABS: MD NO
[2020-07-02 06:42] LABS: ANION GAP 9 mmol/L (5-15); CREATININE 1.62 mg/dL (0.7-1.3)
[2020-07-02 07:33] VITALS: BP 120/62
[2020-07-02] MEDS: LABETALOL 100 MG TABLET PO SCH ×2 (07:47→16:42)
[2020-07-02] MEDS: SENNA/DOCUSATE TABLET PO SCH (08:56)
[2020-07-02] MEDS: CLOPIDOGREL 75 MG TABLET PO SCH (08:57)
[2020-07-02] MEDS: INSULIN GLARGINE 100 UNITS/ML, PEN SQ-INSULIN SCH ×2 (08:58→20:59)
[2020-07-02] MEDS: INSULIN LISPRO 100 UNITS/ML, PEN SQ-INSULIN SCH ×3 (11:00→21:00)
[2020-07-02 13:37] VITALS: BP 113/53
[2020-07-02 16:23] LABS: POTASSIUM,URINE RANDOM 42 mmol/L; SODIUM,URINE RANDOM 19 mmol/L
[2020-07-02 16:26] LABS: MICROSCOPIC INDICATED
[2020-07-02 16:29] LABS: CHLORIDE,URINE RANDOM < 10 mmol/L
[2020-07-02] MEDS ORDERED: MAGNESIUM HYDROXIDE 8%, 30ML UDC PO PRN (18:00)
[2020-07-02 20:26] VITALS: BP 132/61
[2020-07-02] MEDS: MELATONIN 5 MG TABLET PO PRN (20:57)
[2020-07-02] MEDS: OXYcodone IR 5MG TABLET PO PRN (20:57)
[2020-07-02] MEDS: ATORVASTATIN 40 MG TABLET PO SCH (20:58)
[2020-07-02] MEDS: FAMOTIDINE 10 MG TAB PO SCH (20:59)
[2020-07-03] VITALS (8 sets, daily range): BP systolic 142–164; BP diastolic 63–80
[2020-07-03] MEDS: ASPIRIN 81 MG TABLET EC PO SCH (05:36)
[2020-07-03] MEDS: PIPERACILLIN/TAZO/PMX 3.375GM 50 ML IV SCH ×3 (05:36→20:45)
[2020-07-03] MEDS: LABETALOL 100 MG TABLET PO SCH ×2 (05:36→17:49)
[2020-07-03 06:26] LABS: BASOPHILS % (AUTO) 0 % (0-1); EOSINOPHILS % (AUTO) 2 % (1-7); LYMPHOCYTES % (AUTO) 12 % (22-44); MEAN CORPUSCULAR HEMOGLOBIN 27.8 pg (27.5-34.5); MONOCYTES % (AUTO) 11 % (2-9); NEUTROPHILS % (AUTO) 75 % (42-75); PLATELET COUNT 335 x10^3/uL (130-400); RED BLOOD COUNT 2.37 x10^6/uL (4.38-5.82); RED CELL DISTRIBUTION WIDTH 13.3 % (9.4-14.8)
[2020-07-03 06:35] LABS: ALANINE AMINOTRANSFERASE 6 U/L (12-78); ALBUMIN 1.6 g/dL (3.4-5.0); ANION GAP 7 mmol/L (5-15); CALCIUM 7.9 mg/dL (8.5-10.1); CHLORIDE 107 mmol/L (98-107); CREATININE 1.97 mg/dL (0.7-1.3)
[2020-07-03 06:37] LABS: ALKALINE PHOSPHATASE 164 U/L (45-117); BILIRUBIN,TOTAL 0.3 mg/dL (0.2-1.0); TOTAL PROTEIN 5.8 g/dL (6.4-8.2)
[2020-07-03 06:38] LABS: HCT (SEDRATE) 19.9 % (39.2-51.8)
[2020-07-03 06:39] LABS: MD NO
[2020-07-03] MEDS: CLOPIDOGREL 75 MG TABLET PO SCH (07:52)
[2020-07-03] MEDS: SENNA/DOCUSATE TABLET PO SCH (07:52)
[2020-07-03] MEDS: INSULIN GLARGINE 100 UNITS/ML, PEN SQ-INSULIN SCH ×2 (07:53→20:48)
[2020-07-03] MEDS: INSULIN LISPRO 100 UNITS/ML, PEN SQ-INSULIN SCH ×4 (07:53→20:47)
[2020-07-03] MEDS: SODIUM CHLORIDE 0.9% 1,000 ML IV SCH ×2 (07:57→20:46)
[2020-07-03] MEDS ORDERED: POTASSIUM CHLORIDE 20 MEQ TAB.ER.PRT PO ONE (09:00)
[2020-07-03] MEDS: ATORVASTATIN 40 MG TABLET PO SCH (20:46)
[2020-07-03] MEDS: FAMOTIDINE 10 MG TAB PO SCH (20:47)
[2020-07-04 01:28] VITALS: BP 157/79
[2020-07-04] MEDS: PIPERACILLIN/TAZO/PMX 3.375GM 50 ML IV SCH ×3 (05:03→20:50)
[2020-07-04 05:50] VITALS: BP 157/76
[2020-07-04] MEDS: LABETALOL 100 MG TABLET PO SCH ×2 (06:00→17:55)
[2020-07-04] MEDS: ASPIRIN 81 MG TABLET EC PO SCH (06:30)
[2020-07-04] MEDS: SODIUM CHLORIDE 0.9% 1,000 ML IV SCH ×2 (06:31→16:34)
[2020-07-04] MEDS: INSULIN LISPRO 100 UNITS/ML, PEN SQ-INSULIN SCH ×4 (07:00→20:51)
[2020-07-04 07:10] VITALS: BP 175/78
[2020-07-04 08:04] LABS: BASOPHILS % (AUTO) 1 % (0-1); EOSINOPHILS % (AUTO) 3 % (1-7); LYMPHOCYTES % (AUTO) 11 % (22-44); MEAN CORPUSCULAR HEMOGLOBIN 28.6 pg (27.5-34.5); MEAN CORPUSCULAR HGB CONC 33.6 g/dL (33.2-36.2); MEAN PLATELET VOLUME 7.6 fL (7.4-10.4); MONOCYTES % (AUTO) 9 % (2-9); NEUTROPHILS % (AUTO) 77 % (42-75); PLATELET COUNT 305 x10^3/uL (130-400); RED BLOOD COUNT 2.73 x10^6/uL (4.38-5.82); RED CELL DISTRIBUTION WIDTH 13.4 % (9.4-14.8)
[2020-07-04 08:12] LABS: MD NO
[2020-07-04 08:13] LABS: ALBUMIN 1.7 g/dL (3.4-5.0); ANION GAP 7 mmol/L (5-15); CHLORIDE 113 mmol/L (98-107)
[2020-07-04 08:18] LABS: ALANINE AMINOTRANSFERASE 6 U/L (12-78); ALKALINE PHOSPHATASE 167 U/L (45-117); BILIRUBIN,TOTAL 0.4 mg/dL (0.2-1.0); TOTAL PROTEIN 6.1 g/dL (6.4-8.2)
[2020-07-04 08:47] VITALS: BP 159/83
[2020-07-04] MEDS: INSULIN GLARGINE 100 UNITS/ML, PEN SQ-INSULIN SCH ×2 (09:00→20:51)
[2020-07-04] MEDS: CLOPIDOGREL 75 MG TABLET PO SCH (09:27)
[2020-07-04] MEDS: SENNA/DOCUSATE TABLET PO SCH (09:29)
[2020-07-04 13:12] VITALS: BP 182/78
[2020-07-04] MEDS: ONDANSETRON ODT 4 MG PO PRN (13:31)
[2020-07-04 18:59] VITALS: BP 148/74
[2020-07-04] MEDS: ATORVASTATIN 40 MG TABLET PO SCH (20:51)
[2020-07-04] MEDS: FAMOTIDINE 10 MG TAB PO SCH (20:51)
[2020-07-05] MEDS: SODIUM CHLORIDE 0.9% 1,000 ML IV SCH ×2 (00:57→12:45)
[2020-07-05 01:08] VITALS: BP 160/80
[2020-07-05] MEDS: PIPERACILLIN/TAZO/PMX 3.375GM 50 ML IV SCH ×3 (04:35→21:45)
[2020-07-05] MEDS: ASPIRIN 81 MG TABLET EC PO SCH (06:00)
[2020-07-05] MEDS: LABETALOL 100 MG TABLET PO SCH ×2 (06:00→16:28)
[2020-07-05] MEDS: ONDANSETRON ODT 4 MG PO PRN ×4 (06:11→21:13)
[2020-07-05 06:14] LABS: BASOPHILS % (AUTO) 0 % (0-1); EOSINOPHILS % (AUTO) 3 % (1-7); LYMPHOCYTES % (AUTO) 9 % (22-44); MEAN CORPUSCULAR HEMOGLOBIN 28.2 pg (27.5-34.5); MEAN CORPUSCULAR HGB CONC 32.9 g/dL (33.2-36.2); MEAN PLATELET VOLUME 7.7 fL (7.4-10.4); MONOCYTES % (AUTO) 8 % (2-9); NEUTROPHILS % (AUTO) 80 % (42-75); PLATELET COUNT 347 x10^3/uL (130-400); RED BLOOD COUNT 2.71 x10^6/uL (4.38-5.82); RED CELL DISTRIBUTION WIDTH 13.8 % (9.4-14.8)
[2020-07-05 06:17] LABS: MD NO
[2020-07-05] MEDS: INSULIN LISPRO 100 UNITS/ML, PEN SQ-INSULIN SCH ×4 (07:00→21:00)
[2020-07-05 08:06] VITALS: BP 151/78
[2020-07-05] MEDS: SENNA/DOCUSATE TABLET PO SCH (08:16)
[2020-07-05] MEDS: INSULIN GLARGINE 100 UNITS/ML, PEN SQ-INSULIN SCH (08:24)
[2020-07-05] MEDS: CLOPIDOGREL 75 MG TABLET PO SCH (08:24)
[2020-07-05 08:42] LABS: ANION GAP 7 mmol/L (5-15); CALCIUM 7.9 mg/dL (8.5-10.1); CHLORIDE 113 mmol/L (98-107)
[2020-07-05 08:43] LABS: CREATININE 1.53 mg/dL (0.7-1.3)
[2020-07-05 14:14] VITALS: BP 158/81
[2020-07-05 16:29] VITALS: BP 153/78
[2020-07-05 20:34] VITALS: BP 147/68
[2020-07-05] MEDS: FAMOTIDINE 10 MG TAB PO SCH (21:00)
[2020-07-05] MEDS: ATORVASTATIN 40 MG TABLET PO SCH (21:00)
[2020-07-06] MEDS: SODIUM CHLORIDE 0.9% 1,000 ML IV SCH ×3 (00:19→18:06)
[2020-07-06 01:09] VITALS: BP 152/66
[2020-07-06] MEDS: ONDANSETRON ODT 4 MG PO PRN ×2 (01:13→05:34)
[2020-07-06] MEDS: ASPIRIN 81 MG TABLET EC PO SCH (05:35)
[2020-07-06] MEDS: PIPERACILLIN/TAZO/PMX 3.375GM 50 ML IV SCH ×3 (05:35→21:10)
[2020-07-06] MEDS: LABETALOL 100 MG TABLET PO SCH (05:35)
[2020-07-06 05:49] LABS: BASOPHILS % (AUTO) 0 % (0-1); EOSINOPHILS % (AUTO) 3 % (1-7); LYMPHOCYTES % (AUTO) 10 % (22-44); MEAN CORPUSCULAR HEMOGLOBIN 28.9 pg (27.5-34.5); MEAN CORPUSCULAR HGB CONC 33.2 g/dL (33.2-36.2); MEAN PLATELET VOLUME 7.6 fL (7.4-10.4); MONOCYTES % (AUTO) 8 % (2-9); NEUTROPHILS % (AUTO) 78 % (42-75); PLATELET COUNT 410 x10^3/uL (130-400); RED BLOOD COUNT 2.82 x10^6/uL (4.38-5.82); RED CELL DISTRIBUTION WIDTH 13.7 % (9.4-14.8)
[2020-07-06 05:51] LABS: MD NO
[2020-07-06 05:58] LABS: CHLORIDE 115 mmol/L (98-107)
[2020-07-06 06:03] LABS: ALANINE AMINOTRANSFERASE 7 U/L (12-78); ALBUMIN 1.7 g/dL (3.4-5.0); ALKALINE PHOSPHATASE 153 U/L (45-117); ANION GAP 10 mmol/L (5-15); BILIRUBIN,TOTAL 0.4 mg/dL (0.2-1.0); CALCIUM 8.4 mg/dL (8.5-10.1); CREATININE 1.43 mg/dL (0.7-1.3); TOTAL PROTEIN 6.1 g/dL (6.4-8.2)
[2020-07-06 06:56] VITALS: BP 164/66
[2020-07-06] MEDS: INSULIN LISPRO 100 UNITS/ML, PEN SQ-INSULIN SCH ×4 (07:00→21:00)
[2020-07-06] MEDS: SENNA/DOCUSATE TABLET PO SCH (09:00)
[2020-07-06] MEDS: CLOPIDOGREL 75 MG TABLET PO SCH (09:01)
[2020-07-06] MEDS: hydrALAzine 20 MG/ML, 1ML IV PRN ×2 (14:57→21:22)
[2020-07-06 15:06] VITALS: BP 189/82
[2020-07-06 16:27] VITALS: BP 180/75
[2020-07-06] MEDS ORDERED: LABETALOL 5MG/ML, 20ML IVPush PRN (16:30)
[2020-07-06] MEDS ORDERED: LABETALOL 5MG/ML, 20ML IVPush ONE (17:00)
[2020-07-06] MEDS ORDERED: FENTANYL PF 100 MCG/2ML ONE ×2 (17:23→18:50)
[2020-07-06] MEDS ORDERED: ONDANSETRON 2MG/ML, 2ML ONE (17:24)
[2020-07-06] MEDS ORDERED: PROPOFOL 10 MG/ML, 20ML ONE (17:24)
[2020-07-06] MEDS ORDERED: MEPERIDINE/PF 25MG/0.5ML IVPush PRN (18:00)
[2020-07-06] MEDS ORDERED: OXYcodone 5 MG/5 ML ORAL.SOL UDC PO PRN (18:00)
[2020-07-06] MEDS ORDERED: HYDROmorphone 1 MG/ML, 1ML INJ IVPush PRN (18:00)
[2020-07-06] MEDS ORDERED: HYDROcodone/APAP 7.5-325MG/15ML UDC PO PRN (18:00)
[2020-07-06] MEDS ORDERED: PROMETHAZINE 25 MG/ML, 1ML IVPush PRN (18:00)
[2020-07-06] MEDS ORDERED: FENTANYL PF 100 MCG/2ML IV PRN (18:00)
[2020-07-06] MEDS ORDERED: OXYcodone 5 MG/5 ML ORAL.SOL UDC ONE (18:50)
[2020-07-06 20:02] VITALS: BP 166/74
[2020-07-06] MEDS: ATORVASTATIN 40 MG TABLET PO SCH ×2 (21:00→21:10)
[2020-07-06] MEDS: FAMOTIDINE 10 MG TAB PO SCH ×2 (21:00→21:10)
[2020-07-07 00:20] VITALS: BP 130/63
[2020-07-07] MEDS: SODIUM CHLORIDE 0.9% 1,000 ML IV SCH ×2 (02:05→11:30)
[2020-07-07 03:45] VITALS: BP 113/75
[2020-07-07] MEDS: ASPIRIN 81 MG TABLET EC PO SCH (06:00)
[2020-07-07] MEDS: PIPERACILLIN/TAZO/PMX 3.375GM 50 ML IV SCH ×3 (06:08→21:46)
[2020-07-07 06:25] VITALS: BP 128/80
[2020-07-07] MEDS: INSULIN LISPRO 100 UNITS/ML, PEN SQ-INSULIN SCH ×4 (06:32→21:12)
[2020-07-07 06:48] VITALS: BP 158/88
[2020-07-07] MEDS ORDERED: PANTOPRAZOLE 40 MG IV IVPush SCH (08:00)
[2020-07-07] MEDS ORDERED: ONDANSETRON 2MG/ML, 2ML IVPush PRN (08:00)
[2020-07-07 08:18] LABS: MEAN CORPUSCULAR HEMOGLOBIN 28.2 pg (27.5-34.5); MEAN PLATELET VOLUME 7.4 fL (7.4-10.4); PLATELET COUNT 523 x10^3/uL (130-400); RED BLOOD COUNT 3.25 x10^6/uL (4.38-5.82); RED CELL DISTRIBUTION WIDTH 13.9 % (9.4-14.8)
[2020-07-07] MEDS: METOCLOPRAMIDE 5 MG/ML, 2ML IVPush SCH ×3 (08:22→20:49)
[2020-07-07 08:24] VITALS: BP 176/74
[2020-07-07 08:26] LABS: ALBUMIN 1.8 g/dL (3.4-5.0); ANION GAP 18 mmol/L (5-15); CALCIUM 8.5 mg/dL (8.5-10.1); CHLORIDE 114 mmol/L (98-107)
[2020-07-07 08:31] LABS: ALANINE AMINOTRANSFERASE 8 U/L (12-78); ALKALINE PHOSPHATASE 145 U/L (45-117); BILIRUBIN,TOTAL 0.6 mg/dL (0.2-1.0); CREATININE 1.46 mg/dL (0.7-1.3); TOTAL PROTEIN 6.4 g/dL (6.4-8.2); TROPONIN I < 0.015 ng/mL (0.000-0.045)
[2020-07-07 09:15] LABS: MD YES
[2020-07-07 09:17] LABS: ANISOCYTOSIS 1+; EOS#(MANUAL) 0.61 x10^3/uL (0.0-0.4); EOS% (MANUAL) 3 % (1-7); LYMPH#(MANUAL) 0.81 x10^3/uL (1-3.4); LYMPHS% (MANUAL) 4 % (22-44); METAMYELOCYTES% (MANUAL) 1 % (0-1); MICROCYTOSIS 1+; MONOS#(MANUAL) 0.81 x10^3/uL (0.3-2.7); MONOS% (MANUAL) 4 % (2-9); SEG#(MANUAL) 17.78 x10^3/uL (1.8-6.8); SEGS% (MANUAL) 88 % (42-75)
[2020-07-07 09:18] LABS: <PLATELET ESTIMATE> INCREASED; <PLT MORPHOLOGY> NORMAL PLT MORPH
[2020-07-07] MEDS: ESOMEPRAZOLE 40 MG IV IVPush SCH ×2 (09:36→21:12)
[2020-07-07 11:02] LABS: FIO2 RA %
[2020-07-07 11:10] LABS: INTERNATIONAL NORMALIZED RATIO 1.44 (0.93-1.1); PROTHROMBIN TIME 15.2 Seconds (9.6-11.5)
[2020-07-07 13:36] LABS: ANION GAP 16 mmol/L (5-15); CALCIUM 8.3 mg/dL (8.5-10.1); CHLORIDE 114 mmol/L (98-107); CREATININE 1.42 mg/dL (0.7-1.3)
[2020-07-07 13:53] LABS: TROPONIN I < 0.015 ng/mL (0.000-0.045)
[2020-07-07] MEDS ORDERED: LACTATED RINGERS 1,000 ML IV SCH (14:00)
[2020-07-07 19:24] LABS: TROPONIN I < 0.015 ng/mL (0.000-0.045)
[2020-07-07] MEDS: hydrALAzine 20 MG/ML, 1ML IV PRN (20:50)
[2020-07-07 21:25] VITALS: BP 151/64
[2020-07-08 00:36] VITALS: BP 157/69
[2020-07-08] MEDS: METOCLOPRAMIDE 5 MG/ML, 2ML IVPush SCH ×4 (01:54→20:04)
[2020-07-08] MEDS: PIPERACILLIN/TAZO/PMX 3.375GM 50 ML IV SCH ×3 (05:19→23:27)
[2020-07-08 05:20] VITALS: BP 123/49
[2020-07-08] MEDS: INSULIN LISPRO 100 UNITS/ML, PEN SQ-INSULIN SCH ×4 (07:00→23:33)
[2020-07-08] MEDS ORDERED: PROPOFOL 10 MG/ML, 20ML ONE (08:11)
[2020-07-08] MEDS: ESOMEPRAZOLE 40 MG IV IVPush SCH ×2 (09:18→23:27)
[2020-07-08] MEDS: hydrALAzine 20 MG/ML, 1ML IV PRN ×3 (09:18→17:36)
[2020-07-08] MEDS: SUCRALFATE 1 GM/10 ML UDC PO SCH ×3 (12:09→23:27)
[2020-07-08] MEDS: CARVEDILOL 6.25 MG TABLET PO SCH (16:50)
[2020-07-08 19:47] VITALS: BP 135/83
[2020-07-08 19:51] VITALS: BP 145/66
[2020-07-09] VITALS (12 sets, daily range): BP systolic 129–174; BP diastolic 60–89
[2020-07-09] MEDS: METOCLOPRAMIDE 5 MG/ML, 2ML IVPush SCH ×4 (02:31→19:28)
[2020-07-09 05:59] LABS: ANION GAP 6 mmol/L (5-15); BASOPHILS % (AUTO) 1 % (0-1); CHLORIDE 117 mmol/L (98-107); CREATININE 1.36 mg/dL (0.7-1.3); EOSINOPHILS % (AUTO) 5 % (1-7); LYMPHOCYTES % (AUTO) 10 % (22-44); MEAN CORPUSCULAR HEMOGLOBIN 28.2 pg (27.5-34.5); MEAN CORPUSCULAR HGB CONC 32.8 g/dL (33.2-36.2); MEAN PLATELET VOLUME 7.5 fL (7.4-10.4); MONOCYTES % (AUTO) 8 % (2-9); NEUTROPHILS % (AUTO) 77 % (42-75); PLATELET COUNT 388 x10^3/uL (130-400); RED BLOOD COUNT 2.58 x10^6/uL (4.38-5.82); RED CELL DISTRIBUTION WIDTH 14.5 % (9.4-14.8)
[2020-07-09 06:25] LABS: MD NO
[2020-07-09] MEDS: INSULIN LISPRO 100 UNITS/ML, PEN SQ-INSULIN SCH ×4 (06:49→21:00)
[2020-07-09] MEDS: SUCRALFATE 1 GM/10 ML UDC PO SCH ×4 (06:56→21:42)
[2020-07-09] MEDS: CARVEDILOL 6.25 MG TABLET PO SCH ×2 (06:56→17:59)
[2020-07-09] MEDS: PIPERACILLIN/TAZO/PMX 3.375GM 50 ML IV SCH ×2 (08:37→16:18)
[2020-07-09] MEDS: hydrALAzine 20 MG/ML, 1ML IV PRN (08:39)
[2020-07-09] MEDS: ESOMEPRAZOLE 40 MG IV IVPush SCH ×2 (08:43→23:29)
[2020-07-09] MEDS ORDERED: ESOMEPRAZOLE 40 MG IV IVPush SCH (12:30)
[2020-07-09] MEDS ORDERED: FUROSEMIDE 20 MG/2 ML IV ONE (17:30)
[2020-07-09] MEDS ORDERED: ACETAMINOPHEN 325 MG TABLET PO ONE (17:30)
[2020-07-09] MEDS ORDERED: DIPHENHYDRAMINE 12.5MG/5ML, 10ML UDC PO ONE (17:30)
[2020-07-09] MEDS: GUAIFENESIN/DM 100-10MG, 5ML UDC PO PRN ×2 (17:59→23:45)
[2020-07-09] MEDS ORDERED: FUROSEMIDE 20 MG/2 ML ONE (23:12)
[2020-07-10] VITALS (9 sets, daily range): BP systolic 137–198; BP diastolic 77–104
[2020-07-10] MEDS: PIPERACILLIN/TAZO/PMX 3.375GM 50 ML IV SCH ×3 (00:07→16:27)
[2020-07-10] MEDS: METOCLOPRAMIDE 5 MG/ML, 2ML IVPush SCH ×3 (02:12→07:57)
[2020-07-10] MEDS: SUCRALFATE 1 GM/10 ML UDC PO SCH ×4 (06:54→20:02)
[2020-07-10] MEDS: ASPIRIN 81 MG TABLET EC PO SCH (06:54)
[2020-07-10] MEDS: CARVEDILOL 6.25 MG TABLET PO SCH ×2 (07:01→17:07)
[2020-07-10] MEDS: INSULIN LISPRO 100 UNITS/ML, PEN SQ-INSULIN SCH ×4 (07:07→20:05)
[2020-07-10] MEDS: hydrALAzine 20 MG/ML, 1ML IV PRN (07:48)
[2020-07-10] MEDS: ESOMEPRAZOLE 40 MG IV IVPush SCH ×2 (07:53→20:03)
[2020-07-10] MEDS: GUAIFENESIN/DM 100-10MG, 5ML UDC PO PRN (07:55)
[2020-07-10] MEDS: AMLODIPINE 5 MG TABLET PO SCH (08:45)
[2020-07-10] MEDS: CLOPIDOGREL 75 MG TABLET PO SCH (09:00)
[2020-07-10] MEDS ORDERED: LORazepam 2 MG/ML, 1ML ONE (09:16)
[2020-07-10] MEDS ORDERED: LORazepam 2 MG/ML, 1ML IVPush PRN (09:30)
[2020-07-10 09:42] LABS: BASOPHILS % (AUTO) 1 % (0-1); EOSINOPHILS % (AUTO) 6 % (1-7); LYMPHOCYTES % (AUTO) 14 % (22-44); MD NO; MEAN CORPUSCULAR HEMOGLOBIN 29.1 pg (27.5-34.5); MEAN CORPUSCULAR HGB CONC 33.7 g/dL (33.2-36.2); MEAN PLATELET VOLUME 7.5 fL (7.4-10.4); MONOCYTES % (AUTO) 8 % (2-9); NEUTROPHILS % (AUTO) 72 % (42-75); PLATELET COUNT 297 x10^3/uL (130-400); RED BLOOD COUNT 2.82 x10^6/uL (4.38-5.82); RED CELL DISTRIBUTION WIDTH 14.4 % (9.4-14.8)
[2020-07-10 09:43] LABS: HCT (SEDRATE) 24.4 % (39.2-51.8)
[2020-07-10 09:51] LABS: ALBUMIN 1.7 g/dL (3.4-5.0); ANION GAP 7 mmol/L (5-15); CALCIUM 8.1 mg/dL (8.5-10.1); CHLORIDE 112 mmol/L (98-107)
[2020-07-10 10:00] LABS: ALANINE AMINOTRANSFERASE 9 U/L (12-78); ALKALINE PHOSPHATASE 108 U/L (45-117); BILIRUBIN,TOTAL 0.3 mg/dL (0.2-1.0); CREATININE 1.15 mg/dL (0.7-1.3); TOTAL PROTEIN 5.8 g/dL (6.4-8.2)
[2020-07-10] MEDS ORDERED: POTASSIUM PHOSPHATE 44 MEQ in SODIUM CHLORIDE 0.9% 500 ML IV ONE (12:30)
[2020-07-10] MEDS ORDERED: METOCLOPRAMIDE 5 MG/ML, 2ML IVPush PRN (12:30)
[2020-07-10] MEDS: GUAIFENESIN/COD200MG-20MG/10ML LIQUID PO PRN (13:55)
[2020-07-10] MEDS ORDERED: TEMAZEPAM 15 MG CAPSULE PO PRN (21:00)
[2020-07-11] MEDS: PIPERACILLIN/TAZO/PMX 3.375GM 50 ML IV SCH ×4 (00:07→18:03)
[2020-07-11] MEDS ORDERED: FUROSEMIDE 20 MG/2 ML IV ONE (07:00)
[2020-07-11 07:27] LABS: BASOPHILS % (AUTO) 1 % (0-1); EOSINOPHILS % (AUTO) 5 % (1-7); LYMPHOCYTES % (AUTO) 12 % (22-44); MEAN CORPUSCULAR HEMOGLOBIN 28.8 pg (27.5-34.5); MEAN CORPUSCULAR HGB CONC 33.2 g/dL (33.2-36.2); MEAN PLATELET VOLUME 7.7 fL (7.4-10.4); MONOCYTES % (AUTO) 9 % (2-9); NEUTROPHILS % (AUTO) 74 % (42-75); PLATELET COUNT 311 x10^3/uL (130-400); RED BLOOD COUNT 2.82 x10^6/uL (4.38-5.82); RED CELL DISTRIBUTION WIDTH 14.3 % (9.4-14.8)
[2020-07-11 07:31] LABS: ANION GAP 7 mmol/L (5-15); CHLORIDE 111 mmol/L (98-107); CREATININE 1.18 mg/dL (0.7-1.3)
[2020-07-11 07:32] LABS: MD NO
[2020-07-11 07:42] VITALS: BP 166/84
[2020-07-11] MEDS: CLOPIDOGREL 75 MG TABLET PO SCH (07:52)
[2020-07-11] MEDS: GUAIFENESIN/COD200MG-20MG/10ML LIQUID PO PRN ×2 (07:52→15:57)
[2020-07-11] MEDS: SUCRALFATE 1 GM/10 ML UDC PO SCH ×4 (07:52→20:43)
[2020-07-11] MEDS: ESOMEPRAZOLE 40 MG IV IVPush SCH ×2 (07:52→20:43)
[2020-07-11] MEDS: CARVEDILOL 6.25 MG TABLET PO SCH ×2 (07:52→17:17)
[2020-07-11] MEDS: AMLODIPINE 5 MG TABLET PO SCH (07:52)
[2020-07-11] MEDS: INSULIN LISPRO 100 UNITS/ML, PEN SQ-INSULIN SCH ×4 (07:53→20:43)
[2020-07-11] MEDS: ASPIRIN 81 MG TABLET EC PO SCH (07:53)
[2020-07-11] MEDS ORDERED: MAGNESIUM SULFATE PMX 2GM/50ML 50 ML IV ONE (15:00)
[2020-07-11 15:43] VITALS: BP 171/79
[2020-07-11 15:50] VITALS: BP 161/82
[2020-07-11 18:26] VITALS: BP 152/73
[2020-07-12 02:03] VITALS: BP 159/75
[2020-07-12] MEDS: PIPERACILLIN/TAZO/PMX 3.375GM 50 ML IV SCH ×3 (02:06→17:33)
[2020-07-12] MEDS: SUCRALFATE 1 GM/10 ML UDC PO SCH ×4 (06:28→20:45)
[2020-07-12] MEDS: ASPIRIN 81 MG TABLET EC PO SCH (06:28)
[2020-07-12 06:33] VITALS: BP 159/74
[2020-07-12] MEDS: CARVEDILOL 6.25 MG TABLET PO SCH ×2 (06:34→17:41)
[2020-07-12] MEDS ORDERED: FUROSEMIDE 20 MG/2 ML IV ONE (07:00)
[2020-07-12] MEDS: CLOPIDOGREL 75 MG TABLET PO SCH (08:03)
[2020-07-12] MEDS: INSULIN LISPRO 100 UNITS/ML, PEN SQ-INSULIN SCH ×4 (08:05→20:57)
[2020-07-12] MEDS: ESOMEPRAZOLE 40 MG IV IVPush SCH ×2 (08:05→20:45)
[2020-07-12] MEDS: AMLODIPINE 5 MG TABLET PO SCH (08:06)
[2020-07-12 08:13] LABS: BASOPHILS % (AUTO) 1 % (0-1); EOSINOPHILS % (AUTO) 4 % (1-7); LYMPHOCYTES % (AUTO) 10 % (22-44); MEAN CORPUSCULAR HEMOGLOBIN 29.7 pg (27.5-34.5); MEAN CORPUSCULAR HGB CONC 34.2 g/dL (33.2-36.2); MEAN PLATELET VOLUME 7.9 fL (7.4-10.4); MONOCYTES % (AUTO) 9 % (2-9); NEUTROPHILS % (AUTO) 76 % (42-75); PLATELET COUNT 260 x10^3/uL (130-400); RED BLOOD COUNT 2.65 x10^6/uL (4.38-5.82); RED CELL DISTRIBUTION WIDTH 14.3 % (9.4-14.8)
[2020-07-12 08:19] LABS: MD NO
[2020-07-12 08:21] LABS: ANION GAP 6 mmol/L (5-15); CALCIUM 7.8 mg/dL (8.5-10.1); CHLORIDE 111 mmol/L (98-107)
[2020-07-12 08:22] LABS: CREATININE 1.16 mg/dL (0.7-1.3)
[2020-07-12 13:05] VITALS: BP 158/69
[2020-07-12 17:34] VITALS: BP 156/75
[2020-07-12 18:35] VITALS: BP 168/70
[2020-07-13] VITALS (7 sets, daily range): BP systolic 143–179; BP diastolic 63–78
[2020-07-13] MEDS: PIPERACILLIN/TAZO/PMX 3.375GM 50 ML IV SCH ×3 (01:56→17:11)
[2020-07-13] MEDS: SUCRALFATE 1 GM/10 ML UDC PO SCH ×4 (06:22→20:41)
[2020-07-13] MEDS: CARVEDILOL 6.25 MG TABLET PO SCH ×2 (06:22→17:11)
[2020-07-13] MEDS: ASPIRIN 81 MG TABLET EC PO SCH (06:22)
[2020-07-13] MEDS: INSULIN LISPRO 100 UNITS/ML, PEN SQ-INSULIN SCH ×4 (08:58→20:49)
[2020-07-13] MEDS: ESOMEPRAZOLE 40 MG IV IVPush SCH ×2 (08:59→20:41)
[2020-07-13] MEDS: AMLODIPINE 5 MG TABLET PO SCH (08:59)
[2020-07-13] MEDS: CLOPIDOGREL 75 MG TABLET PO SCH (08:59)
[2020-07-13] MEDS ORDERED: INSULIN GLARGINE 100 UNITS/ML, PEN SQ-INSULIN SCH (09:00)
[2020-07-13] MEDS: FUROSEMIDE 20 MG/2 ML IV SCH (17:11)
[2020-07-14] MEDS: PIPERACILLIN/TAZO/PMX 3.375GM 50 ML IV SCH ×3 (02:00→17:58)
[2020-07-14 02:04] VITALS: BP 163/75
[2020-07-14] MEDS: CARVEDILOL 6.25 MG TABLET PO SCH ×2 (06:19→17:58)
[2020-07-14] MEDS: ASPIRIN 81 MG TABLET EC PO SCH (06:19)
[2020-07-14 06:46] VITALS: BP 170/85
[2020-07-14] MEDS: ESOMEPRAZOLE 40 MG IV IVPush SCH ×2 (08:09→21:30)
[2020-07-14] MEDS: SUCRALFATE 1 GM/10 ML UDC PO SCH ×4 (08:09→21:50)
[2020-07-14] MEDS: AMLODIPINE 5 MG TABLET PO SCH (08:10)
[2020-07-14] MEDS: FUROSEMIDE 20 MG/2 ML IV SCH (08:10)
[2020-07-14] MEDS: CLOPIDOGREL 75 MG TABLET PO SCH (08:10)
[2020-07-14] MEDS: INSULIN GLARGINE 100 UNITS/ML, PEN SQ-INSULIN SCH (08:11)
[2020-07-14] MEDS: INSULIN LISPRO 100 UNITS/ML, PEN SQ-INSULIN SCH ×4 (08:11→21:38)
[2020-07-14 08:13] VITALS: BP 162/74
[2020-07-14] MEDS ORDERED: CARVEDILOL 6.25 MG TABLET PO SCH (10:00)
[2020-07-14 12:50] VITALS: BP 169/76
[2020-07-14 20:00] VITALS: BP 144/73
[2020-07-15] MEDS: PIPERACILLIN/TAZO/PMX 3.375GM 50 ML IV SCH ×4 (01:55→22:34)
[2020-07-15 06:35] VITALS: BP 166/78
[2020-07-15] MEDS: ASPIRIN 81 MG TABLET EC PO SCH (06:41)
[2020-07-15] MEDS: CARVEDILOL 6.25 MG TABLET PO SCH ×2 (06:42→17:31)
[2020-07-15] MEDS: SUCRALFATE 1 GM/10 ML UDC PO SCH ×4 (06:43→22:45)
[2020-07-15] MEDS: INSULIN LISPRO 100 UNITS/ML, PEN SQ-INSULIN SCH ×4 (07:00→22:43)
[2020-07-15] MEDS: INSULIN GLARGINE 100 UNITS/ML, PEN SQ-INSULIN SCH (08:38)
[2020-07-15] MEDS: CLOPIDOGREL 75 MG TABLET PO SCH (08:39)
[2020-07-15] MEDS: FUROSEMIDE 20 MG/2 ML IV SCH (08:40)
[2020-07-15] MEDS: ESOMEPRAZOLE 40 MG IV IVPush SCH ×2 (08:40→22:42)
[2020-07-15] MEDS: AMLODIPINE 5 MG TABLET PO SCH (08:42)
[2020-07-15 15:35] VITALS: BP 157/70
[2020-07-15 19:44] VITALS: BP 166/80
[2020-07-16 00:27] VITALS: BP 155/73
[2020-07-16] MEDS: PIPERACILLIN/TAZO/PMX 3.375GM 50 ML IV SCH ×3 (06:36→22:24)
[2020-07-16] MEDS: CARVEDILOL 6.25 MG TABLET PO SCH ×2 (06:49→17:31)
[2020-07-16] MEDS: SUCRALFATE 1 GM/10 ML UDC PO SCH ×4 (06:50→22:30)
[2020-07-16] MEDS: ASPIRIN 81 MG TABLET EC PO SCH (06:50)
[2020-07-16] MEDS: INSULIN LISPRO 100 UNITS/ML, PEN SQ-INSULIN SCH ×4 (07:00→22:26)
[2020-07-16 08:12] VITALS: BP 166/86
[2020-07-16] MEDS: CLOPIDOGREL 75 MG TABLET PO SCH (09:34)
[2020-07-16] MEDS: AMLODIPINE 5 MG TABLET PO SCH (09:34)
[2020-07-16] MEDS: FUROSEMIDE 20 MG/2 ML IV SCH (09:34)
[2020-07-16] MEDS: ESOMEPRAZOLE 40 MG IV IVPush SCH ×2 (09:35→22:36)
[2020-07-16] MEDS: INSULIN GLARGINE 100 UNITS/ML, PEN SQ-INSULIN SCH (09:46)
[2020-07-16] MEDS: MUPIROCIN OINT 2%, 22GM TP SCH (11:00)
[2020-07-16 13:20] VITALS: BP 171/76
[2020-07-16] MEDS ORDERED: DEXTROSE 50%, 50ML SYRINGE IVPush PRN (17:00)
[2020-07-16] MEDS ORDERED: DEXTROSE 4 GM TAB.CHEW PO PRN (17:00)
[2020-07-16] MEDS ORDERED: GLUCAGON 1 MG IM PRN (17:00)
[2020-07-16 17:30] VITALS: BP 151/71
[2020-07-16 21:59] VITALS: BP 159/79
[2020-07-16] MEDS: SODIUM CHLORIDE FLUSH 10ML SYR IVF SCH (22:28)
[2020-07-17] VITALS (8 sets, daily range): BP systolic 155–176; BP diastolic 73–86
[2020-07-17] MEDS: PIPERACILLIN/TAZO/PMX 3.375GM 50 ML IV SCH ×3 (06:37→22:35)
[2020-07-17] MEDS: SUCRALFATE 1 GM/10 ML UDC PO SCH ×4 (06:46→22:35)
[2020-07-17] MEDS: ASPIRIN 81 MG TABLET EC PO SCH (06:46)
[2020-07-17] MEDS: CARVEDILOL 6.25 MG TABLET PO SCH ×2 (06:46→17:43)
[2020-07-17 06:55] LABS: BASOPHILS % (AUTO) 0 % (0-1); EOSINOPHILS % (AUTO) 8 % (1-7); LYMPHOCYTES % (AUTO) 18 % (22-44); MEAN CORPUSCULAR HGB CONC 33.8 g/dL (33.2-36.2); MEAN PLATELET VOLUME 7.9 fL (7.4-10.4); MONOCYTES % (AUTO) 12 % (2-9); NEUTROPHILS % (AUTO) 62 % (42-75); PLATELET COUNT 263 x10^3/uL (130-400); RED BLOOD COUNT 2.64 x10^6/uL (4.38-5.82); RED CELL DISTRIBUTION WIDTH 14.3 % (9.4-14.8)
[2020-07-17 06:59] LABS: ALBUMIN 1.7 g/dL (3.4-5.0); ANION GAP 5 mmol/L (5-15); CALCIUM 8.1 mg/dL (8.5-10.1); CHLORIDE 110 mmol/L (98-107); CREATININE 1.15 mg/dL (0.7-1.3)
[2020-07-17] MEDS: INSULIN LISPRO 100 UNITS/ML, PEN SQ-INSULIN SCH ×4 (07:00→22:39)
[2020-07-17 07:03] LABS: HCT (SEDRATE) 22.6 % (39.2-51.8)
[2020-07-17 07:05] LABS: ALANINE AMINOTRANSFERASE 10 U/L (12-78); ALKALINE PHOSPHATASE 134 U/L (45-117); BILIRUBIN,TOTAL 0.3 mg/dL (0.2-1.0); TOTAL PROTEIN 5.7 g/dL (6.4-8.2)
[2020-07-17] MEDS: CLOPIDOGREL 75 MG TABLET PO SCH (08:19)
[2020-07-17] MEDS: ESOMEPRAZOLE 40 MG IV IVPush SCH ×2 (08:19→22:36)
[2020-07-17] MEDS: AMLODIPINE 10 MG TAB PO SCH (09:00)
[2020-07-17] MEDS ORDERED: INSULIN GLARGINE 100 UNITS/ML, PEN SQ-INSULIN SCH (09:00)
[2020-07-17] MEDS: SODIUM CHLORIDE FLUSH 10ML SYR IVF SCH ×2 (09:00→22:35)
[2020-07-17 11:13] LABS: MD NO
[2020-07-17] MEDS: MUPIROCIN OINT 2%, 22GM TP SCH (12:00)
[2020-07-17] MEDS: hydrALAzine 20 MG/ML, 1ML IV PRN (15:01)
[2020-07-17] MEDS ORDERED: FUROSEMIDE 20 MG/2 ML IV ONE (16:30)
[2020-07-17] MEDS ORDERED: POTASSIUM CHLORIDE 20 MEQ TAB.ER.PRT PO ONE (16:30)
[2020-07-18 06:30] VITALS: BP 177/76
[2020-07-18 06:40] LABS: ANION GAP 5 mmol/L (5-15); CALCIUM 8.1 mg/dL (8.5-10.1); CHLORIDE 109 mmol/L (98-107); CREATININE 1.19 mg/dL (0.7-1.3)
[2020-07-18] MEDS: PIPERACILLIN/TAZO/PMX 3.375GM 50 ML IV SCH ×3 (06:47→22:56)
[2020-07-18] MEDS: ASPIRIN 81 MG TABLET EC PO SCH (06:48)
[2020-07-18] MEDS: CARVEDILOL 6.25 MG TABLET PO SCH ×2 (06:50→17:36)
[2020-07-18] MEDS: SUCRALFATE 1 GM/10 ML UDC PO SCH ×4 (06:50→22:58)
[2020-07-18] MEDS: INSULIN LISPRO 100 UNITS/ML, PEN SQ-INSULIN SCH ×4 (07:00→22:58)
[2020-07-18 07:07] LABS: BASOPHILS % (AUTO) 1 % (0-1); EOSINOPHILS % (AUTO) 10 % (1-7); LYMPHOCYTES % (AUTO) 16 % (22-44); MEAN CORPUSCULAR HEMOGLOBIN 29.5 pg (27.5-34.5); MEAN CORPUSCULAR HGB CONC 34.1 g/dL (33.2-36.2); MEAN PLATELET VOLUME 7.9 fL (7.4-10.4); MONOCYTES % (AUTO) 12 % (2-9); NEUTROPHILS % (AUTO) 62 % (42-75); PLATELET COUNT 261 x10^3/uL (130-400); RED BLOOD COUNT 2.97 x10^6/uL (4.38-5.82); RED CELL DISTRIBUTION WIDTH 14.9 % (9.4-14.8)
[2020-07-18 07:14] LABS: MD NO
[2020-07-18] MEDS: MUPIROCIN OINT 2%, 22GM TP SCH (08:49)
[2020-07-18] MEDS: ESOMEPRAZOLE 40 MG IV IVPush SCH ×2 (08:49→22:58)
[2020-07-18] MEDS: INSULIN GLARGINE 100 UNITS/ML, PEN SQ-INSULIN SCH (08:50)
[2020-07-18] MEDS: CLOPIDOGREL 75 MG TABLET PO SCH (08:51)
[2020-07-18] MEDS: SODIUM CHLORIDE FLUSH 10ML SYR IVF SCH ×2 (08:52→22:58)
[2020-07-18] MEDS: AMLODIPINE 10 MG TAB PO SCH (08:52)
[2020-07-18 12:22] VITALS: BP 167/81
[2020-07-18 18:44] VITALS: BP 173/82
[2020-07-19] MEDS: SUCRALFATE 1 GM/10 ML UDC PO SCH ×4 (06:40→20:24)
[2020-07-19] MEDS: CARVEDILOL 6.25 MG TABLET PO SCH ×2 (06:40→18:28)
[2020-07-19] MEDS: PIPERACILLIN/TAZO/PMX 3.375GM 50 ML IV SCH ×3 (06:40→22:06)
[2020-07-19] MEDS: ASPIRIN 81 MG TABLET EC PO SCH (06:40)
[2020-07-19 08:00] VITALS: BP 187/81
[2020-07-19 09:03] LABS: ANION GAP 7 mmol/L (5-15); CALCIUM 8.1 mg/dL (8.5-10.1); CHLORIDE 109 mmol/L (98-107)
[2020-07-19 09:05] LABS: CREATININE 1.16 mg/dL (0.7-1.3)
[2020-07-19] MEDS: AMLODIPINE 10 MG TAB PO SCH (09:43)
[2020-07-19] MEDS: INSULIN LISPRO 100 UNITS/ML, PEN SQ-INSULIN SCH ×4 (09:44→20:23)
[2020-07-19] MEDS: INSULIN GLARGINE 100 UNITS/ML, PEN SQ-INSULIN SCH (09:44)
[2020-07-19] MEDS: CLOPIDOGREL 75 MG TABLET PO SCH (09:44)
[2020-07-19] MEDS: ESOMEPRAZOLE 40 MG IV IVPush SCH ×2 (09:45→20:24)
[2020-07-19] MEDS: SODIUM CHLORIDE FLUSH 10ML SYR IVF SCH ×2 (09:45→20:24)
[2020-07-19 13:16] VITALS: BP 178/81
[2020-07-19] MEDS: MUPIROCIN OINT 2%, 22GM TP SCH (16:30)
[2020-07-19 18:52] VITALS: BP 166/74
[2020-07-19 22:18] VITALS: BP 113/70
[2020-07-20] MEDS: ASPIRIN 81 MG TABLET EC PO SCH (05:27)
[2020-07-20] MEDS: CARVEDILOL 6.25 MG TABLET PO SCH ×2 (05:27→16:55)
[2020-07-20] MEDS: SUCRALFATE 1 GM/10 ML UDC PO SCH ×4 (05:28→21:00)
[2020-07-20] MEDS: INSULIN LISPRO 100 UNITS/ML, PEN SQ-INSULIN SCH ×4 (05:28→21:00)
[2020-07-20] MEDS: PIPERACILLIN/TAZO/PMX 3.375GM 50 ML IV SCH ×3 (06:40→23:18)
[2020-07-20 06:45] VITALS: BP 174/76
[2020-07-20] MEDS: CLOPIDOGREL 75 MG TABLET PO SCH (08:46)
[2020-07-20] MEDS: SODIUM CHLORIDE FLUSH 10ML SYR IVF SCH ×2 (08:47→23:15)
[2020-07-20] MEDS: AMLODIPINE 10 MG TAB PO SCH (08:47)
[2020-07-20] MEDS: ESOMEPRAZOLE 40 MG IV IVPush SCH ×2 (08:47→21:00)
[2020-07-20] MEDS: INSULIN GLARGINE 100 UNITS/ML, PEN SQ-INSULIN SCH (08:48)
[2020-07-20] MEDS: MUPIROCIN OINT 2%, 22GM TP SCH (08:48)
[2020-07-20 13:50] VITALS: BP 180/85
[2020-07-20 20:02] VITALS: BP 182/81
[2020-07-21] MEDS: ASPIRIN 81 MG TABLET EC PO SCH (06:00)
[2020-07-21] MEDS: CARVEDILOL 6.25 MG TABLET PO SCH (06:00)
[2020-07-21] MEDS: INSULIN LISPRO 100 UNITS/ML, PEN SQ-INSULIN SCH ×2 (07:00→11:00)
[2020-07-21] MEDS: SUCRALFATE 1 GM/10 ML UDC PO SCH ×3 (07:00→11:00)
[2020-07-21 07:06] VITALS: BP 184/86
[2020-07-21] MEDS: PIPERACILLIN/TAZO/PMX 3.375GM 50 ML IV SCH (07:18)
[2020-07-21] MEDS: MUPIROCIN OINT 2%, 22GM TP SCH (09:00)
[2020-07-21] MEDS: AMLODIPINE 10 MG TAB PO SCH (09:24)
[2020-07-21] MEDS: ESOMEPRAZOLE 40 MG IV IVPush SCH (09:24)
[2020-07-21] MEDS: CLOPIDOGREL 75 MG TABLET PO SCH (09:24)
[2020-07-21] MEDS: INSULIN GLARGINE 100 UNITS/ML, PEN SQ-INSULIN SCH (09:24)
[2020-07-21] MEDS: SODIUM CHLORIDE FLUSH 10ML SYR IVF SCH (09:24)
[2020-07-21] MEDS ORDERED: LEVOFLOXACIN 750 MG TABLET PO SCH (11:30)
[2020-07-21] MEDS ORDERED: AMOXICILLIN 500 MG CAPSULE PO SCH (11:30)
[2020-07-21] MEDS ORDERED: INSU100I13 SQ-INSULIN (12:20)
[2020-07-21] MEDS ORDERED: HYDR-3342 PO (12:20)
[2020-07-21] MEDS ORDERED: ASPI81TA45 PO (12:20)
[2020-07-21] MEDS ORDERED: CLOP75TA PO (12:20)
[2020-07-21] MEDS ORDERED: LEVO750T6 PO (12:20)
[2020-07-21] MEDS ORDERED: CARV6.2512 PO (12:20)
[2020-07-21] MEDS ORDERED: AMOX-291 PO (12:20)
[2020-07-21] MEDS ORDERED: AMLO-211 PO (12:20)
== END 2020-07-21 16:58 | disposition home or self-care (01) | DRG 853 ==
LOC: ED 17:23 → EDIP 18:18 → 3N 06-18 02:00 → 4NE 07-01 18:13 → CCU 07-07 09:22 → 4NE 07-08 18:26
PROVIDERS: ADMIT Internal Medicine; ATTEND Hospitalist
PROC: 0QBN3ZX Excision of Right Metatarsal, Percutaneous Approach, Diagnostic (ICD-10-PCS; principal; 2020-06-26 09:30)
PROC: 04CK3ZZ Extirpation of Matter from Right Femoral Artery, Percutaneous Approach (ICD-10-PCS; 2020-07-01)
PROC: 041 Lower Arteries, Bypass (ICD-10-PCS; 2020-07-01)
PROC: 30233N1 Transfusion of Nonautologous Red Blood Cells into Peripheral Vein, Percutaneous Approach (ICD-10-PCS; 2020-07-03)
PROC: 0Y6M0Z9 Detachment at Right Foot, Partial 1st Ray, Open Approach (ICD-10-PCS; 2020-07-06)
PROC: 0Y6M0ZB Detachment at Right Foot, Partial 2nd Ray, Open Approach (ICD-10-PCS; 2020-07-06)
PROC: 0Y6M0ZC Detachment at Right Foot, Partial 3rd Ray, Open Approach (ICD-10-PCS; 2020-07-06)
PROC: 0Y6M0ZD Detachment at Right Foot, Partial 4th Ray, Open Approach (ICD-10-PCS; 2020-07-06)
PROC: 0Y6M0ZF Detachment at Right Foot, Partial 5th Ray, Open Approach (ICD-10-PCS; 2020-07-06)
PROC: 0DJ08ZZ Inspection of Upper Intestinal Tract, Via Natural or Artificial Opening Endoscopic (ICD-10-PCS; 2020-07-08)
DX: A41.9 Sepsis, unspecified organism (principal); K22.11 Ulcer of esophagus with bleeding; E43 Unspecified severe protein-calorie malnutrition; J18.9 Pneumonia, unspecified organism; N17.0 Acute kidney failure with tubular necrosis; E11.52 Type 2 diabetes mellitus with diabetic peripheral angiopathy with gangrene; L03.115 Cellulitis of right lower limb; M86.9 Osteomyelitis, unspecified; E87.1 Hypo-osmolality and hyponatremia; K56.7 Ileus, unspecified; T82.856A Stenosis of peripheral vascular stent, initial encounter; R18.8 Other ascites; Z16.29 Resistance to other single specified antibiotic; E11.628 Type 2 diabetes mellitus with other skin complications; E11.65 Type 2 diabetes mellitus with hyperglycemia; E11.621 Type 2 diabetes mellitus with foot ulcer; E11.21 Type 2 diabetes mellitus with diabetic nephropathy; L97.509 Non-pressure chronic ulcer of other part of unspecified foot with unspecified severity; F17.210 Nicotine dependence, cigarettes, uncomplicated; I11.9 Hypertensive heart disease without heart failure; D63.8 Anemia in other chronic diseases classified elsewhere; E11.649 Type 2 diabetes mellitus with hypoglycemia without coma; I16.0 Hypertensive urgency; I70.201 Unspecified atherosclerosis of native arteries of extremities, right leg; K27.9 Peptic ulcer, site unspecified, unspecified as acute or chronic, without hemorrhage or perforation; K29.70 Gastritis, unspecified, without bleeding; K70.9 Alcoholic liver disease, unspecified; N50.89 Other specified disorders of the male genital organs; N20.0 Calculus of kidney; Y83.8 Other surgical procedures as the cause of abnormal reaction of the patient, or of later complication, without mention of misadventure at the time of the procedure; Z79.02 Long term (current) use of antithrombotics/antiplatelets; Z89.512 Acquired absence of left leg below knee; Z79.4 Long term (current) use of insulin; Z79.82 Long term (current) use of aspirin; Z87.19 Personal history of other diseases of the digestive system; Z91.14 Patient's other noncompliance with medication regimen; Z91.19 Patient's noncompliance with other medical treatment and regimen; Z68.30 Body mass index [BMI] 30.0-30.9, adult
CPT/HCPCS: 36415; 36600; 73552; 73630; 74018; 96374; 99285; J3490; 36200; 71045; 74176; 75625; 75710; 76770; 80048; 80053; 80061; 80202; 81001; 82436; 82570; 82803; 82962; 83036; 83605; 83735; 83880; 84100; 84133; 84300; 84484; 85014; 85018; 85025; 85347; 85610; 85651; 86140; 86850; 86900; 86923; 87040; 87070; 87077; 87081; 87086; 87186; 87205; 87324; 87635; 88300; 88305; 88307; 88311; 93005; 93306; 93925; 93970; 99156; 99157; G0378; J0690; J0878; J1100; J1644; J2250; J2405; J2543; J2704; J2710; J2720; J3010; J3370; Q0162; Q9967; A9575; C1751; C1760; C1768; C1769; C1894; J0330; J0360; J1815; J1940; J2060; J2310; J2765; J3475; J7030; J7040; J7050; J7120; P9016

== ENCOUNTER 2020-09-08 16:12 | Outpatient (CLI) | payer SELFPAY ==
[~2020-09-08 16:12] MED LIST changes: +AMLO-211 PO; +AMOX-291 PO; -ASPI-515 PO; +ASPI-963 PO; +ASPI81TA45 PO; +CARV6.2512 PO; +HYDR-3342 PO; +LEVO750T6 PO
== END 2020-09-08 23:59 | disposition home or self-care (01) ==
LOC: RAD 16:12
PROVIDERS: ATTEND Orthopaedic Surgery
DX: L97.511 Non-pressure chronic ulcer of other part of right foot limited to breakdown of skin (principal); M79.89 Other specified soft tissue disorders